=== PATIENT | male | born 1940 | race Caucasian/White ===

== ENCOUNTER 2017-08-09 11:07 | Emergency (ER) | payer BC, OTHER ==
[~2017-08-09] VITALS: Ht 165.1 cm; Wt 97.5 kg
[~2017-08-09 11:07] MED LIST: BENA20TA2 PO; DIFL500T PO; DOXA4TAB3 PO; FURO20TA3 PO; GLIP-112 PO; METF-620 PO; OMEP20TA8 PO; PIOG45TA3 PO
[2017-08-09] MEDS ORDERED: ONDANSETRON PF 4 MG/2 ML VIAL. IV ONE (12:30)
[2017-08-09] MEDS ORDERED: fentaNYL PF VIAL 100 MCG/2 ML VIAL IV PRN (12:30)
[2017-08-09 12:46] LABS: BASO % 1 % (0-3); EOS % 3 % (0-3); HEMATOCRIT 33.8 % (39.0-53.0); HEMOGLOBIN 10.9 g/dL (13.0-17.5); LYMPH # 1.4 x10^3/uL (1.0-4.8); LYMPH % 19 % (24-48); MEAN CORPUSCULAR HEMOGLOBIN 29 pg (25-35); MEAN CORPUSCULAR HGB CONC 32 g/dL (31-37); MEAN CORPUSCULAR VOLUME 90 fL (79-100); MONO % 9 % (0-9); NEUT % 69 % (31-73); PLATELET COUNT 189 x10^3/uL (140-400); RED BLOOD COUNT 3.75 x10^6/uL (4.30-5.70); RED CELL DISTRIBUTION WIDTH 14.5 % (11.5-14.5); WHITE BLOOD COUNT 7.6 x10^3/uL (4.0-11.0)
[2017-08-09 12:56] LABS: CALCIUM 8.5 mg/dL (8.5-10.1); CREATININE 1.7 mg/dL (0.7-1.3); GFR 39.5; POTASSIUM 5.6 mmol/L (3.5-5.1)
[2017-08-09 12:57] LABS: INR 1.1 (0.8-1.1); PROTHROMBIN TIME PATIENT 13.5 SEC (11.7-14.0)
--- NOTE | 2017-08-09 12:57 | PHYS DOC ---
Past Medical History Past Medical History: Anemia, Asthma, Bronchitis, CAD, Cancer, Diabetes-Type II , Hypertension, Renal Disease, Other Additional Past Medical Histor: PROSTATE CA, Past Surgical History: Other Additional Past Surgical Histo: CATARACT SX, L THUMB Alcohol Use: None Drug Use: None Adult General Chief Complaint Chief Complaint: Shoulder pain HPI HPI Patient is a 77 year old male who presents with complaint of right sided shoulder pain. Patient states that he has had symptoms present for the past 2 weeks. Patient states that the pain originates in his right shoulder blade and radiates through his shoulder down into his hand. Patient states that his ring and small finger affected but he is not having symptoms in his thumb, index, or middle finger. Patient states that the pain has been constant. The patient has been seen by his primary doctor gave him a steroid shot and pain medication which did not help his symptoms. Patient also was seen at urgent care and started on a muscle relaxant. Patient states that despite treatment his symptoms have not improved. Patient rates his pain as 5 out of 10. Patient denies any associated substernal chest pain, shortness of breath, or headache currently. Review of Systems Review of Systems Constitutional: Denies fever or chills [] Eyes: Denies change in visual acuity, redness, or eye pain [] HENT: Denies nasal congestion or sore throat [] Respiratory: Denies cough or shortness of breath [] Cardiovascular: Denies substernal chest pain [] GI: Denies abdominal pain, nausea, vomiting, bloody stools or diarrhea [] : Denies dysuria or hematuria [] Musculoskeletal: Right shoulder and upper extremity pain[] Integument: Denies rash or skin lesions [] Neurologic: Denies headache, focal weakness or sensory changes [] Current Medications Current Medications Current Medications Medications (Trade) Dose Ordered Sig/Alicia Start Time Stop Time Status Last Admin Dose Admin Fentanyl Citrate (Fentanyl 2ml Vial) 50 mcg PRN Q15MIN PRN 08/09/17 12:30 08/10/17 12:29 08/09/17 12:36 50 MCG Ondansetron HCl (Zofran) 4 mg 1X ONCE 08/09/17 12:30 08/09/17 12:31 DC 08/09/17 12:36 4 MG Allergies Allergies Allergies Coded Allergies Type Severity Reaction Last Updated Verified No Known Drug Allergies 10/03/15 No Physical Exam Physical Exam Constitutional: Alert, obese, afebrile, appears in moderate discomfort. [] HENT: Normocephalic, atraumatic, bilateral external ears normal, oropharynx moist, no oral exudates, nose normal. [] Eyes: PERRLA, EOMI, conjunctiva normal, no discharge. [] Neck: Normal range of motion, no tenderness, supple, no stridor. [] Cardiovascular:Heart rate regular rhythm, no murmur [] Lungs & Thorax: Bilateral breath sounds clear to auscultation [] Abdomen: Bowel sounds normal, soft, no tenderness, no masses, no pulsatile masses. [] Skin: Warm, dry, no erythema, no rash. [] Back: No tenderness, no CVA tenderness. [] Extremities: No tenderness to palpation of right shoulder blade, no cyanosis, no clubbing, ROM intact, no edema. [] Neurologic: Alert and oriented X 3, normal motor function, normal sensory function, no focal deficits noted. [] Current Patient Data Vital Signs Vital Signs Date Time Temp Pulse Resp B/P (MAP) Pulse Ox O2 Delivery O2 Flow Rate FiO2 08/09/17 13:35 74 16 198/89 (125) 94 Room Air 08/09/17 11:17 98.3 98.3 Lab Values Laboratory Tests Test 08/09/17 12:30 08/09/17 13:35 White Blood Count 7.6 x10^3/uL (4.0-11.0) Red Blood Count 3.75 x10^6/uL (4.30-5.70) L Hemoglobin 10.9 g/dL (13.0-17.5) L Hematocrit 33.8 % (39.0-53.0) L Mean Corpuscular Volume 90 fL (79-100) Mean Corpuscular Hemoglobin 29 pg (25-35) Mean Corpuscular Hemoglobin Concent 32 g/dL (31-37) Red Cell Distribution Width 14.5 % (11.5-14.5) Platelet Count 189 x10^3/uL (140-400) Neutrophils (%) (Auto) 69 % (31-73) Lymphocytes (%) (Auto) 19 % (24-48) L Monocytes (%) (Auto) 9 % (0-9) Eosinophils (%) (Auto) 3 % (0-3) Basophils (%) (Auto) 1 % (0-3) Neutrophils # (Auto) 5.2 x10^3uL (1.8-7.7) Lymphocytes # (Auto) 1.4 x10^3/uL (1.0-4.8) Monocytes # (Auto) 0.7 x10^3/uL (0.0-1.1) Eosinophils # (Auto) 0.2 x10^3/uL (0.0-0.7) Basophils # (Auto) 0.0 x10^3/uL (0.0-0.2) Prothrombin Time 13.5 SEC (11.7-14.0) Prothrombin Time INR 1.1 (0.8-1.1) PTT 28 SEC (24-38) Sodium Level 142 mmol/L (136-145) Potassium Level 5.6 mmol/L (3.5-5.1) H Chloride Level 106 mmol/L (98-107) Carbon Dioxide Level 31 mmol/L (21-32) Anion Gap 5 (6-14) L Blood Urea Nitrogen 26 mg/dL (8-26) Creatinine 1.7 mg/dL (0.7-1.3) H Estimated GFR (Cockcroft-Gault) 39.5 BUN/Creatinine Ratio 15 (6-20) Glucose Level 232 mg/dL (70-99) H Calcium Level 8.5 mg/dL (8.5-10.1) Total Bilirubin 0.1 mg/dL (0.2-1.0) L Aspartate Amino Transferase (AST) 25 U/L (15-37) Alanine Aminotransferase (ALT) 30 U/L (16-63) Alkaline Phosphatase 84 U/L (46-116) Troponin I Quantitative < 0.017 ng/mL (0.000-0.055) Total Protein 6.7 g/dL (6.4-8.2) Albumin 3.5 g/dL (3.4-5.0) Albumin/Globulin Ratio 1.1 (1.0-1.7) Urine Collection Type Unknown Urine Color Yellow Urine Clarity Clear Urine pH 5.5 Urine Specific [place] 1.020 Urine Protein 100 mg/dL (NEG-TRACE) Urine Glucose (UA) 100 mg/dL (NEG) Urine Ketones (Stick) Negative mg/dL (NEG) Urine Blood Negative (NEG) Urine Nitrite Negative (NEG) Urine Bilirubin Negative (NEG) Urine Urobilinogen Dipstick 0.2 mg/dL (0.2 mg/dL) Urine Leukocyte Esterase Negative (NEG) Urine RBC Rare /HPF (0-2) Urine WBC Rare /HPF (0-4) Urine Bacteria Few /HPF (0-FEW) Laboratory Tests 08/09/17 12:30 Laboratory Tests 08/09/17 12:30 EKG EKG Interpreted by me: Heart rate 69, sinus rhythm, normal intervals, leftward axis , no acute ST/T-wave abnormalities present[] Radiology/Procedures Radiology/Procedures [place] [address] [place] [address] IMAGING REPORT Signed PATIENT: AUGUSTO CUNHA ACCOUNT: [id number] : 1940 LOCATION: ER AGE: 77 SEX: M EXAM STATUS: REG ER ORD. PHYSICIAN: ELISEO FRIEDMAN MD REASON: ulnar radicular pain in right upper extremity PROCEDURE: CERVICAL SPINE 2-3V Cervical spine, 3 views, 08/09/2017: History: Right ulnar radicular pain There is moderate disc space narrowing and marginal spurring at all of the disc spaces from C3-4 through C6-7. There are moderate degenerative changes involving scattered facet joints bilaterally. There is a slight associated spondylolisthesis at C2-3 due to facet joint arthropathy. No fracture is identified. The prevertebral soft tissues are unremarkable. IMPRESSION: 1. Moderately severe multilevel degenerative change throughout the cervical spine as described above. 2. No acute bony abnormality is detected. DICTATED and SIGNED BY: KADEN STARK MD DATE: 08/09/171313 CC: ELISEO FRIEDMAN MD; EMI ARNETT [address] [address] IMAGING REPORT Signed PATIENT: AUGUSTO CUNHA ACCOUNT: [id number] : 1940 LOCATION: ER AGE: 77 SEX: M EXAM STATUS: REG ER ORD. PHYSICIAN: ELISEO FRIEDMAN MD REASON: ulnar radicular pain in right upper extremity PROCEDURE: CHEST PA & LATERAL Chest, 2 views, 2016: History: Shoulder and back pain The heart size and pulmonary vascularity are normal. No pulmonary infiltrates are seen. There is no evidence of pleural fluid. Mild spurring is present in the spine. IMPRESSION: No acute cardiopulmonary abnormality is detected. DICTATED and SIGNED BY: KADEN STARK MD DATE: 08/09/17 1868 CC: ELISEO FRIEDMAN MD; EMI ARNETT ~ [] Course & Med Decision Making Course & Med Decision Making Pertinent Labs and Imaging studies reviewed. (See chart for details) Patient's workup shows evidence of severe degenerative disease of the cervical spine. The radiation patient's pain through the shoulder into the right fourth and fifth digits suggests a radiculopathy likely at the level of C7 and C8. Patient will be started on prednisone therapy for treatment of inflammation to improve patient's pain symptoms. Patient was found to have a potassium level of 5.6 with mild elevation in his creatinine levels. The patient's EKG and rhythm strip show no signs hyperacute T waves or other ectopy. I spoke with Dr. 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 He stated that it would be appropriate to give the patient 15 g of Kayexalate in the emergency department and to follow-up tomorrow for repeat lab work. Patient states that he was already scheduled to have repeat lab work tomorrow. Advised patient to return emergency department for any worsening symptoms. Patient voiced understanding and in agreement with treatment plan. Dragon Disclaimer Dragon Disclaimer This electronic medical record was generated, in whole or in part, using a voice recognition dictation system. Departure Departure Impression: Primary Impression: Cervical radiculopathy at C7 Additional Impressions: Hyperkalemia Renal insufficiency Disposition: 01 HOME, SELF-CARE Condition: IMPROVED Referrals: EMI ARNETT (PCP) Patient Instructions: Cervical Radiculopathy, Hyperkalemia Additional Instructions: Follow-up with Dr. Alexandre tomorrow for a repeat basic metabolic panel as your potassium levels were found to be elevated at 5.6 today. Be sure to drink plenty of fluids. You will be started on prednisone therapy for treatment of your right shoulder and arm pain as this is believed to be due to possible nerve compression and your neck. You will need follow-up to primary doctor in the next 7 days for reevaluation. Please return emergency department for any worsening symptoms. Scripts Prednisone (PREDNISONE) 20 Mg Tablet 1 TAB PO BID, #10 TAB Prov: ELISEO FRIEDMAN MD 08/09/17 Problem Qualifiers ELISEO FRIEDMAN MD Aug 09, 2017 12:57
[2017-08-09 13:03] LABS: ALBUMIN 3.5 g/dL (3.4-5.0); ALBUMIN/GLOBULIN RATIO 1.1 (1.0-1.7); TOTAL BILIRUBIN 0.1 mg/dL (0.2-1.0); TOTAL PROTEIN 6.7 g/dL (6.4-8.2)
--- NOTE | 2017-08-09 13:16 | RAD ---
Chest, 2 views, 2016: History: Shoulder and back pain The heart size and pulmonary vascularity are normal. No pulmonary infiltrates are seen. There is no evidence of pleural fluid. Mild spurring is present in the spine. IMPRESSION: No acute cardiopulmonary abnormality is detected.
--- NOTE | 2017-08-09 13:19 | RAD ---
Cervical spine, 3 views, 08/09/2017: History: Right ulnar radicular pain There is moderate disc space narrowing and marginal spurring at all of the disc spaces from C3-4 through C6-7. There are moderate degenerative changes involving scattered facet joints bilaterally. There is a slight associated spondylolisthesis at C2-3 due to facet joint arthropathy. No fracture is identified. The prevertebral soft tissues are unremarkable. IMPRESSION: 1. Moderately severe multilevel degenerative change throughout the cervical spine as described above. 2. No acute bony abnormality is detected.
[2017-08-09 13:49] LABS: BILIRUBIN,URINE NEGATIVE (NEG); GLUCOSE,URINE 100 mg/dL (NEG); NITRITE,URINE NEGATIVE (NEG); PH,URINE 5.5; PROTEIN,URINE 100 mg/dL (NEG-TRACE); UROBILINOGEN,URINE 0.2 mg/dL (0.2 mg/dL)
[2017-08-09 13:59] LABS: BACTERIA,URINE FEW /HPF (0-FEW); RBC,URINE RARE /HPF (0-2); WBC,URINE RARE /HPF (0-4)
[2017-08-09 14:04] VITALS: BP 200/89
[2017-08-09] MEDS ORDERED: PRED20TA PO (14:43)
[2017-08-09] MEDS ORDERED: SODIUM POLYSTYRENE SULFONATE 15 GM/60 ML ORAL.SUSP. PO ONE (14:45)
--- NOTE | 2017-08-10 07:07 | EKG ---
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
== END 2017-08-09 15:00 | disposition home or self-care (01) ==
LOC: ER 11:07
DX: M54.12 Radiculopathy, cervical region (principal); E87.5 Hyperkalemia; J45.909 Unspecified asthma, uncomplicated; I25.10 Atherosclerotic heart disease of native coronary artery without angina pectoris; E11.22 Type 2 diabetes mellitus with diabetic chronic kidney disease; I12.9 Hypertensive chronic kidney disease with stage 1 through stage 4 chronic kidney disease, or unspecified chronic kidney disease; N18.9 Chronic kidney disease, unspecified; E11.36 Type 2 diabetes mellitus with diabetic cataract; Z98.49 Cataract extraction status, unspecified eye
CPT/HCPCS: 36415; 71020; 72040; 80053; 81001; 84484; 85025; 85610; 85730; 93005; 96374; 96375; 99285; J2405; J3010

== ENCOUNTER 2017-11-04 17:05 | Inpatient (IN) | payer OTHER ==
[~2017-11-04] VITALS: Ht 165.1 cm; Wt 113.9 kg
[~2017-11-04 17:05] MED LIST changes: +PRED20TA PO
--- NOTE | 2017-11-04 17:29 | EKG ---
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
[2017-11-04] MEDS ORDERED: methylPREDNISolone SOD SUCC PF 125 MG/2 ML VIAL. IV ONE (17:30)
[2017-11-04] MEDS ORDERED: IV NORMAL SALINE 1000ML BAG 1,000 ML IV ONE (17:30)
[2017-11-04] MEDS ORDERED: IPRATRPIUM/ALBUTEROL 0.5/2.5MG 3 ML NEBU. NEB ONE (17:30)
[2017-11-04 17:43] LABS: BASO % 1 % (0-3); EOS % 0 % (0-3); HEMATOCRIT 33.5 % (39.0-53.0); HEMOGLOBIN 10.7 g/dL (13.0-17.5); LYMPH # 0.5 x10^3/uL (1.0-4.8); LYMPH % 7 % (24-48); MEAN CORPUSCULAR HEMOGLOBIN 29 pg (25-35); MEAN CORPUSCULAR HGB CONC 32 g/dL (31-37); MEAN CORPUSCULAR VOLUME 90 fL (79-100); MONO % 10 % (0-9); NEUT % 83 % (31-73); PLATELET COUNT 173 x10^3/uL (140-400); RED BLOOD COUNT 3.72 x10^6/uL (4.30-5.70); RED CELL DISTRIBUTION WIDTH 14.7 % (11.5-14.5); WHITE BLOOD COUNT 7.8 x10^3/uL (4.0-11.0)
[2017-11-04 17:55] LABS: INR 1.1 (0.8-1.1); PROTHROMBIN TIME PATIENT 13.8 SEC (11.7-14.0)
[2017-11-04 18:01] LABS: CALCIUM 8.4 mg/dL (8.5-10.1); CREATININE 1.7 mg/dL (0.7-1.3); GFR 39.5; POTASSIUM 4.7 mmol/L (3.5-5.1)
[2017-11-04 18:07] LABS: ALBUMIN 3.3 g/dL (3.4-5.0); ALBUMIN/GLOBULIN RATIO 0.8 (1.0-1.7); MAGNESIUM 1.3 mg/dL (1.8-2.4); TOTAL BILIRUBIN 0.3 mg/dL (0.2-1.0); TOTAL PROTEIN 7.4 g/dL (6.4-8.2)
[2017-11-04] MEDS ORDERED: OSELTAMIVIR 75 MG CAPSULE PO STA (18:11)
[2017-11-04 18:12] LABS: OBC FLU VALID
--- NOTE | 2017-11-04 18:31 | RAD ---
EXAM: CT head without contrast HISTORY: falls x two today no LOC weakness COMPARISON: None. TECHNIQUE: Computed tomographic images of the head were obtained without contrast. RS compliance statement: One or more of the following individualized dose reduction techniques were utilized for this examination: 1. Automated exposure control 2. Adjustment of the mA and/or kV according to patient size 3. Use of iterative reconstruction technique FINDINGS: There is no acute intracranial process identified. Specifically, there are no intracranial blood products, extra-axial fluid collections, mass effect or midline shift. Ventricles and sulci appear age-appropriate. Basilar cisterns are maintained. The visualized portions of the orbits, paranasal sinuses and mastoid air cells are unremarkable. No suspicious calvarial lesion is seen. IMPRESSION: No acute intracranial findings. Electronically signed by: Lucy Lau MD (11/04/2017 6:28 PM) [facility]
[2017-11-04] MEDS ORDERED: MAGNESIUM OXIDE 400 MG TABLET PO STA (18:32)
--- NOTE | 2017-11-04 18:39 | PHYS DOC ---
Past Medical History Past Medical History: Anemia, Asthma, Bronchitis, CAD, Cancer, Diabetes-Type II , Hypertension, Renal Disease, Other Additional Past Medical Histor: PROSTATE CA, Past Surgical History: Other Additional Past Surgical Histo: CATARACT SX, L THUMB Alcohol Use: None Drug Use: None Adult General Chief Complaint Chief Complaint: WEAKNESS/GENERALIZED HPI HPI Patient is a 77 year old male presenting to the emergency department for evaluation of multiple symptoms including cough congestion fevers and per the he has been more confused short of breath and fallen at least twice today. Patient seems to minimize most of the symptoms however says that he fell straight forward and might of passed out and patient could not get up on its own and she cannot lift him up as he is quite a large man and EMS had to be called. Patient essentially denies all symptoms however he is obviously short of breath as he is wheezing and hypoxic and breathing rapidly. Patient received an influenza vaccine this year and these symptoms started 2 days ago and primary care provider started him on amoxicillin. Review of Systems Review of Systems Constitutional: Denies fever or chills [] Eyes: Denies change in visual acuity, redness, or eye pain [] HENT: Denies nasal congestion or sore throat [] Respiratory: Denies cough or shortness of breath [] Cardiovascular: No additional information not addressed in HPI [] GI: Denies abdominal pain, nausea, vomiting, bloody stools or diarrhea [] : Denies dysuria or hematuria [] Musculoskeletal: Denies back pain or joint pain [] Integument: Denies rash or skin lesions [] Neurologic: Denies headache, focal weakness or sensory changes [] All other systems were reviewed and found to be within normal limits, except as documented in this note. Current Medications Current Medications Current Medications Medications (Trade) Dose Ordered Sig/Alicia Start Time Stop Time Status Last Admin Dose Admin Albuterol/ Ipratropium (Duoneb) 3 ml 1X ONCE 11/04/17 17:30 11/04/17 17:31 DC 11/04/17 17:34 3 ML Methylprednisolone Sodium Succinate (SOLU-Medrol 125MG VIAL) 125 mg 1X ONCE 11/04/17 17:30 11/04/17 17:31 DC 11/04/17 17:42 125 MG Oseltamivir Phosphate (Tamiflu) 75 mg 1X STAT 11/04/17 18:11 11/04/17 18:18 DC 12/6/17 18:24 75 MG Sodium Chloride 1,000 ml @ 1,000 mls/hr 1X ONCE 11/04/17 17:30 11/04/17 18:29 DC 11/04/17 17:42 1,000 MLS/HR Allergies Allergies Allergies Coded Allergies Type Severity Reaction Last Updated Verified No Known Drug Allergies 10/03/15 No Physical Exam Physical Exam Constitutional: Large male moderately short of breath but nontoxic-appearing HENT: Normocephalic, atraumatic, bilateral external ears normal, oropharynx moist, no oral exudates, nose normal. [] Eyes: PERRLA, EOMI, conjunctiva normal, no discharge. [] Neck: Normal range of motion, no tenderness, supple, no stridor. [] Cardiovascular:Heart rate regular rhythm but tachycardic, no murmur [] Lungs & Thorax: Bilateral breath sounds diminished with inspiratory and expiratory wheezing Abdomen: Bowel sounds normal, soft, no tenderness, no masses, no pulsatile masses. [] Skin: Warm, dry, no erythema, no rash. [] Back: No tenderness, no CVA tenderness. [] Extremities: No tenderness, no cyanosis, no clubbing, ROM intact, no edema. [] Neurologic: Alert and oriented X 3, normal motor function, normal sensory function, no focal deficits noted. [] Current Patient Data Vital Signs Vital Signs Date Time Temp Pulse Resp B/P (MAP) Pulse Ox O2 Delivery O2 Flow Rate FiO2 11/04/17 17:35 97 Nasal Cannula 2.0 11/04/17 17:33 90 22 11/04/17 17:10 100.6 183/76 (111) 100.6 Lab Values Laboratory Tests Test 11/04/17 17:20 11/04/17 17:30 Influenza Type A Antigen Positive (NEGATIVE) Influenza Type B Antigen Negative (NEGATIVE) White Blood Count 7.8 x10^3/uL (4.0-11.0) Red Blood Count 3.72 x10^6/uL (4.30-5.70) L Hemoglobin 10.7 g/dL (13.0-17.5) L Hematocrit 33.5 % (39.0-53.0) L Mean Corpuscular Volume 90 fL (79-100) Mean Corpuscular Hemoglobin 29 pg (25-35) Mean Corpuscular Hemoglobin Concent 32 g/dL (31-37) Red Cell Distribution Width 14.7 % (11.5-14.5) H Platelet Count 173 x10^3/uL (140-400) Neutrophils (%) (Auto) 83 % (31-73) H Lymphocytes (%) (Auto) 7 % (24-48) L Monocytes (%) (Auto) 10 % (0-9) H Eosinophils (%) (Auto) 0 % (0-3) Basophils (%) (Auto) 1 % (0-3) Neutrophils # (Auto) 6.4 x10^3uL (1.8-7.7) Lymphocytes # (Auto) 0.5 x10^3/uL (1.0-4.8) L Monocytes # (Auto) 0.8 x10^3/uL (0.0-1.1) Eosinophils # (Auto) 0.0 x10^3/uL (0.0-0.7) Basophils # (Auto) 0.0 x10^3/uL (0.0-0.2) Prothrombin Time 13.8 SEC (11.7-14.0) Prothrombin Time INR 1.1 (0.8-1.1) PTT 33 SEC (24-38) Sodium Level 139 mmol/L (136-145) Potassium Level 4.7 mmol/L (3.5-5.1) Chloride Level 102 mmol/L (98-107) Carbon Dioxide Level 26 mmol/L (21-32) Anion Gap 11 (6-14) Blood Urea Nitrogen 19 mg/dL (8-26) Creatinine 1.7 mg/dL (0.7-1.3) H Estimated GFR (Cockcroft-Gault) 39.5 BUN/Creatinine Ratio 11 (6-20) Glucose Level 234 mg/dL (70-99) H Lactic Acid Level 1.4 mmol/L (0.4-2.0) Calcium Level 8.4 mg/dL (8.5-10.1) L Magnesium Level 1.3 mg/dL (1.8-2.4) L Total Bilirubin 0.3 mg/dL (0.2-1.0) Aspartate Amino Transferase (AST) 26 U/L (15-37) Alanine Aminotransferase (ALT) 24 U/L (16-63) Alkaline Phosphatase 71 U/L (46-116) Creatine Kinase 462 U/L (39-308) H Troponin I Quantitative 0.023 ng/mL (0.000-0.055) XT-Bts-E-Type Natriuretic Peptide 1575 pg/mL (0-449) H Total Protein 7.4 g/dL (6.4-8.2) Albumin 3.3 g/dL (3.4-5.0) L Albumin/Globulin Ratio 0.8 (1.0-1.7) L Lipase 146 U/L (73-393) Laboratory Tests 11/04/17 17:30 Laboratory Tests 11/04/17 17:30 EKG EKG Sinus tachycardia at 104 beats per minutes with leftward axis with no obvious ST elevation or depression and normal T waves. Radiology/Procedures Radiology/Procedures Normal mediastinum and normal heart size no obvious free air pneumothorax or opacity Course & Med Decision Making Course & Med Decision Making Patient has influenza A and unfortunately is not doing well at home as he is unable to ambulate successfully and is short of breath and was initially hypoxic. Patient will be admitted to the hospital for IV fluids Tamiflu and hopefully improve overnight. Patient admitted in stable condition. Dragon Disclaimer Dragon Disclaimer This electronic medical record was generated, in whole or in part, using a voice recognition dictation system. Departure Departure Impression: Primary Impression: Influenza A Additional Impressions: Rhabdomyolysis Hypomagnesemia Elevated brain natriuretic peptide (BNP) level Disposition: ADMITTED INPATIENT Admitting Physician: Other (PETERLA) Condition: IMPROVED Referrals: EMI ARNETT (PCP) Problem Qualifiers ANGY GUERRERO DO Nov 04, 2017 18:39
[2017-11-04 18:42] LABS: BILIRUBIN,URINE NEGATIVE (NEG); GLUCOSE,URINE 100 mg/dL (NEG); NITRITE,URINE NEGATIVE (NEG); PH,URINE 5.5; PROTEIN,URINE >=300 mg/dL (NEG-TRACE); UROBILINOGEN,URINE 0.2 mg/dL (0.2 mg/dL)
[2017-11-04] MEDS ORDERED: ACETAMINOPHEN 500 MG TABLET PO ONE (18:45)
[2017-11-04] MEDS ORDERED: ONDANSETRON PF 4 MG/2 ML VIAL. IV PRN (18:45)
[2017-11-04] MEDS ORDERED: fentaNYL PF VIAL 100 MCG/2 ML VIAL IV PRN (18:45)
[2017-11-04 19:00] LABS: BACTERIA,URINE FEW /HPF (0-FEW); SQUAMOUS EPITHELIAL CELL,UR FEW /LPF; WBC,URINE RARE /HPF (0-4)
[2017-11-04 20:06] VITALS: BP 154/69
[2017-11-04] MEDS ORDERED: DEXTROSE 50% 25 GM / 50ML DISP.SYRIN. IV PRN (20:45)
[2017-11-04] MEDS ORDERED: ACETAMINOPHEN 325 MG TABLET. PO PRN (20:45)
--- NOTE | 2017-11-04 20:53 | PDOC1 ---
History and Physical Date of Admission Date of Admission 11/04/17 Identification/Chief Complaint Chief Complaint cough, fever, chills Problems: (1) Influenza A Source Source: Patient History of Present Illness History of Present Illness 77 year old CM came in complaining of cough, fever, and chills for the last few days. Patient stated he has been around sick people in the previous week. Patient then started to get more confused and fell down twice and his brought him in. Patient found to have Influenza A in the ER and is currently feeling better. Patient denies any chest pain, nausea, and vomiting. Past Medical History Cardiovascular: HTN Renal/: Chronic renal insuff Endocrine: Diabetes Family History Family History: No Significant, Diabetes Social History Smoke: No ALCOHOL: none Current Problem List Problem List Problems Medical Problems: (1) Elevated brain natriuretic peptide (BNP) level Status: Acute (2) Hypomagnesemia Status: Acute (3) Influenza A Status: Acute (4) Rhabdomyolysis Status: Acute Current Medications Current Medications Current Medications Medications (Trade) Dose Ordered Sig/Alicia Start Time Stop Time Status Last Admin Dose Admin Acetaminophen (Tylenol) 650 mg PRN Q6HRS PRN 11/04/17 20:45 Albuterol/ Ipratropium (Duoneb) 3 ml RTQID 11/05/17 08:00 UNV Dextrose (Dextrose 50%-Water Syringe) 12.5 gm PRN Q15MIN PRN 11/04/17 20:45 UNV Fentanyl Citrate (Fentanyl 2ml Vial) 50 mcg PRN Q2HR PRN 11/04/17 18:45 11/05/17 18:44 Heparin Sodium (Porcine) (Heparin Sq) 5,000 unit Q8HRS 11/04/17 22:00 Insulin Aspart (NovoLOG) 0-5 UNITS TIDWMEALS 11/05/17 08:00 UNV Magnesium Oxide (Magnesium Oxide) 800 mg 1X STAT 11/04/17 18:32 11/04/17 18:35 DC 11/04/17 20:35 800 MG Methylprednisolone Sodium Succinate (SOLU-Medrol 40MG VIAL) 40 mg Q24H 11/04/17 20:45 UNV Methylprednisolone Sodium Succinate (SOLU-Medrol 125MG VIAL) 125 mg 1X ONCE 11/04/17 17:30 11/04/17 17:31 DC 11/04/17 17:42 125 MG Ondansetron HCl (Zofran) 4 mg PRN Q8HRS PRN 11/04/17 18:45 11/05/17 18:44 Oseltamivir Phosphate (Tamiflu) 75 mg BID 11/04/17 21:00 11/09/17 20:59 UNV Sodium Chloride 1,000 ml @ 1,000 mls/hr 1X ONCE 11/04/17 17:30 11/04/17 18:29 DC 11/04/17 17:42 1,000 MLS/HR Allergies Allergies Allergies Coded Allergies Type Severity Reaction Last Updated Verified No Known Drug Allergies 10/03/15 No ROS Review of System CONSTITUTIONAL: +fever, chills EYES: No recent changes SKIN: No rash or itching CARDIOVASCULAR: No chest pain, syncope, palpitations, or edema RESPIRATORY: +SOB, +cough GASTROINTESTINAL: No nausea, vomiting or abdominal pain NEUROLOGICAL: No headaches or weakness ENDOCRINE: No cold or heat intolerance GENITOURINARY: No urgency or frequency of urination MUSCULOSKELETAL: No back pain or joint pain LYMPHATICS: No enlarged lymph nodes PSYCHIATRIC: No anxiety or depression Physical Exam Physical Exam GEN.: mild distress, alert HEENT: Head is normocephalic, atraumatic NECK: Supple. LUNGS: bilateral expiratory wheezing HEART: RRR, S1, S2 present. Peripheral pulses intact ABDOMEN: Soft, nontender. Positive bowel sounds. EXTREMITIES: Without any cyanosis. NEUROLOGIC: Normal speech, normal tone PSYCHIATRIC: Normal affect, normal mood. SKIN: No ulcerations Vitals Vitals Vital Signs Date Time Temp Pulse Resp B/P (MAP) Pulse Ox O2 Delivery O2 Flow Rate FiO2 11/04/17 20:06 95 20 154/69 (97) 96 Nasal Cannula 2.0 11/04/17 18:26 100.4 100.4 Labs Labs Laboratory Tests Test 11/04/17 17:20 11/04/17 17:30 11/04/17 18:33 11/04/17 20:35 Influenza Type A Antigen Positive (NEGATIVE) Influenza Type B Antigen Negative (NEGATIVE) White Blood Count 7.8 x10^3/uL (4.0-11.0) Red Blood Count 3.72 x10^6/uL (4.30-5.70) Hemoglobin 10.7 g/dL (13.0-17.5) Hematocrit 33.5 % (39.0-53.0) Mean Corpuscular Volume 90 fL (79-100) Mean Corpuscular Hemoglobin 29 pg (25-35) Mean Corpuscular Hemoglobin Concent 32 g/dL (31-37) Red Cell Distribution Width 14.7 % (11.5-14.5) Platelet Count 173 x10^3/uL (140-400) Neutrophils (%) (Auto) 83 % (31-73) Lymphocytes (%) (Auto) 7 % (24-48) Monocytes (%) (Auto) 10 % (0-9) Eosinophils (%) (Auto) 0 % (0-3) Basophils (%) (Auto) 1 % (0-3) Neutrophils # (Auto) 6.4 x10^3uL (1.8-7.7) Lymphocytes # (Auto) 0.5 x10^3/uL (1.0-4.8) Monocytes # (Auto) 0.8 x10^3/uL (0.0-1.1) Eosinophils # (Auto) 0.0 x10^3/uL (0.0-0.7) Basophils # (Auto) 0.0 x10^3/uL (0.0-0.2) Prothrombin Time 13.8 SEC (11.7-14.0) Prothromb Time International Ratio 1.1 (0.8-1.1) Activated Partial Thromboplast Time 33 SEC (24-38) Sodium Level 139 mmol/L (136-145) Potassium Level 4.7 mmol/L (3.5-5.1) Chloride Level 102 mmol/L (98-107) Carbon Dioxide Level 26 mmol/L (21-32) Anion Gap 11 (6-14) Blood Urea Nitrogen 19 mg/dL (8-26) Creatinine 1.7 mg/dL (0.7-1.3) Estimated GFR (Cockcroft-Gault) 39.5 BUN/Creatinine Ratio 11 (6-20) Glucose Level 234 mg/dL (70-99) Lactic Acid Level 1.4 mmol/L (0.4-2.0) Calcium Level 8.4 mg/dL (8.5-10.1) Magnesium Level 1.3 mg/dL (1.8-2.4) Total Bilirubin 0.3 mg/dL (0.2-1.0) Aspartate Amino Transf (AST/SGOT) 26 U/L (15-37) Alanine Aminotransferase (ALT/SGPT) 24 U/L (16-63) Alkaline Phosphatase 71 U/L (46-116) Creatine Kinase 462 U/L (39-308) Troponin I Quantitative 0.023 ng/mL (0.000-0.055) IX-Sbm-I-Type Natriuretic Peptide 1575 pg/mL (0-449) Total Protein 7.4 g/dL (6.4-8.2) Albumin 3.3 g/dL (3.4-5.0) Albumin/Globulin Ratio 0.8 (1.0-1.7) Lipase 146 U/L (73-393) Urine Collection Type Unknown Urine Color Yellow Urine Clarity Clear Urine pH 5.5 Urine Specific Powell 1.020 Urine Protein >=300 mg/dL (NEG-TRACE) Urine Glucose (UA) 100 mg/dL (NEG) Urine Ketones (Stick) Negative mg/dL (NEG) Urine Blood Moderate (NEG) Urine Nitrite Negative (NEG) Urine Bilirubin Negative (NEG) Urine Urobilinogen Dipstick 0.2 mg/dL (0.2 mg/dL) Urine Leukocyte Esterase Negative (NEG) Urine RBC 1-2 /HPF (0-2) Urine WBC Rare /HPF (0-4) Urine Squamous Epithelial Cells Few /LPF Urine Bacteria Few /HPF (0-FEW) Urine Mucus Mod /LPF Glucose (Fingerstick) 285 mg/dL (70-99) Laboratory Tests Test 11/04/17 17:20 11/04/17 17:30 11/04/17 18:33 11/04/17 20:35 Influenza Type A Antigen Positive (NEGATIVE) Influenza Type B Antigen Negative (NEGATIVE) White Blood Count 7.8 x10^3/uL (4.0-11.0) Red Blood Count 3.72 x10^6/uL (4.30-5.70) Hemoglobin 10.7 g/dL (13.0-17.5) Hematocrit 33.5 % (39.0-53.0) Mean Corpuscular Volume 90 fL (79-100) Mean Corpuscular Hemoglobin 29 pg (25-35) Mean Corpuscular Hemoglobin Concent 32 g/dL (31-37) Red Cell Distribution Width 14.7 % (11.5-14.5) Platelet Count 173 x10^3/uL (140-400) Neutrophils (%) (Auto) 83 % (31-73) Lymphocytes (%) (Auto) 7 % (24-48) Monocytes (%) (Auto) 10 % (0-9) Eosinophils (%) (Auto) 0 % (0-3) Basophils (%) (Auto) 1 % (0-3) Neutrophils # (Auto) 6.4 x10^3uL (1.8-7.7) Lymphocytes # (Auto) 0.5 x10^3/uL (1.0-4.8) Monocytes # (Auto) 0.8 x10^3/uL (0.0-1.1) Eosinophils # (Auto) 0.0 x10^3/uL (0.0-0.7) Basophils # (Auto) 0.0 x10^3/uL (0.0-0.2) Prothrombin Time 13.8 SEC (11.7-14.0) Prothromb Time International Ratio 1.1 (0.8-1.1) Activated Partial Thromboplast Time 33 SEC (24-38) Sodium Level 139 mmol/L (136-145) Potassium Level 4.7 mmol/L (3.5-5.1) Chloride Level 102 mmol/L (98-107) Carbon Dioxide Level 26 mmol/L (21-32) Anion Gap 11 (6-14) Blood Urea Nitrogen 19 mg/dL (8-26) Creatinine 1.7 mg/dL (0.7-1.3) Estimated GFR (Cockcroft-Gault) 39.5 BUN/Creatinine Ratio 11 (6-20) Glucose Level 234 mg/dL (70-99) Lactic Acid Level 1.4 mmol/L (0.4-2.0) Calcium Level 8.4 mg/dL (8.5-10.1) Magnesium Level 1.3 mg/dL (1.8-2.4) Total Bilirubin 0.3 mg/dL (0.2-1.0) Aspartate Amino Transf (AST/SGOT) 26 U/L (15-37) Alanine Aminotransferase (ALT/SGPT) 24 U/L (16-63) Alkaline Phosphatase 71 U/L (46-116) Creatine Kinase 462 U/L (39-308) Troponin I Quantitative 0.023 ng/mL (0.000-0.055) [id number]-Type Natriuretic Peptide 1575 pg/mL (0-449) Total Protein 7.4 g/dL (6.4-8.2) Albumin 3.3 g/dL (3.4-5.0) Albumin/Globulin Ratio 0.8 (1.0-1.7) Lipase 146 U/L (73-393) Urine Collection Type Unknown Urine Color Yellow Urine Clarity Clear Urine pH 5.5 Urine Specific Powell 1.020 Urine Protein >=300 mg/dL (NEG-TRACE) Urine Glucose (UA) 100 mg/dL (NEG) Urine Ketones (Stick) Negative mg/dL (NEG) Urine Blood Moderate (NEG) Urine Nitrite Negative (NEG) Urine Bilirubin Negative (NEG) Urine Urobilinogen Dipstick 0.2 mg/dL (0.2 mg/dL) Urine Leukocyte Esterase Negative (NEG) Urine RBC 1-2 /HPF (0-2) Urine WBC Rare /HPF (0-4) Urine Squamous Epithelial Cells Few /LPF Urine Bacteria Few /HPF (0-FEW) Urine Mucus Mod /LPF Glucose (Fingerstick) 285 mg/dL (70-99) VTE Prophylaxis Ordered VTE Prophylaxis Devices: No VTE Pharmacological Prophylaxi: Yes Assessment/Plan Assessment/Plan ~ Influenza A ~ Acute hypoxic respiratory failure ~ Rhabdomyolysis ~ Acute Renal Failure ~ DM II ~ Hypertension Plan: Tamiflu, IV steroids, nebulizers, accuchecks, SSI, Hold ACEI and oral diabetics because of renal failure Heparin SC for DVT ppx Patient to be here for at least 2 [place] JOSE RAFAEL MCCOY MD Nov 04, 2017 20:53
[2017-11-04] MEDS ORDERED: hydrALAZINE 20 MG/ML VIAL. IVP PRN (21:00)
[2017-11-04] MEDS: OSELTAMIVIR 30 MG CAPSULE PO SCH (21:05)
[2017-11-04] MEDS: HEPARIN PF for SUB-Q USE 5,000 UNIT/0.5 ML VIAL. SQ SCH (21:06)
[2017-11-04] MEDS: DOXAZOSIN MESYLATE 4 MG TABLET. PO SCH (21:06)
[2017-11-04] MEDS ORDERED: SIMV40TA3 PO (22:07)
[2017-11-04 23:00] VITALS: BP 165/66
[2017-11-05 03:00] VITALS: BP 167/77
[2017-11-05] MEDS: HEPARIN PF for SUB-Q USE 5,000 UNIT/0.5 ML VIAL. SQ SCH ×3 (05:22→21:37)
[2017-11-05 05:45] LABS: BASO % 0 % (0-3); EOS % 0 % (0-3); HEMATOCRIT 34.7 % (39.0-53.0); HEMOGLOBIN 11.1 g/dL (13.0-17.5); LYMPH # 0.5 x10^3/uL (1.0-4.8); LYMPH % 6 % (24-48); MEAN CORPUSCULAR HEMOGLOBIN 29 pg (25-35); MEAN CORPUSCULAR HGB CONC 32 g/dL (31-37); MEAN CORPUSCULAR VOLUME 91 fL (79-100); MONO % 5 % (0-9); NEUT % 89 % (31-73); PLATELET COUNT 172 x10^3/uL (140-400); RED BLOOD COUNT 3.82 x10^6/uL (4.30-5.70); RED CELL DISTRIBUTION WIDTH 15.2 % (11.5-14.5); WHITE BLOOD COUNT 8.2 x10^3/uL (4.0-11.0)
[2017-11-05 06:18] LABS: CALCIUM 8.5 mg/dL (8.5-10.1); CREATININE 1.7 mg/dL (0.7-1.3); GFR 39.5
[2017-11-05 07:00] VITALS: BP 136/71
[2017-11-05 07:23] LABS: PLT ESTIMATE ADEQUATE (ADEQUATE); TARGET CELLS OCC
[2017-11-05] MEDS: PANTOPRAZOLE 40 MG TABLET.DR. PO SCH (07:49)
[2017-11-05] MEDS: IPRATRPIUM/ALBUTEROL 0.5/2.5MG 3 ML NEBU. NEB SCH ×4 (07:58→19:28)
[2017-11-05] MEDS: INSULIN ASPART 300 UNITS/3 ML INSULN.PEN SQ SCH ×3 (08:02→16:43)
--- NOTE | 2017-11-05 08:26 | RAD ---
Portable chest, 11/04/2017: History: Shortness of breath Cough, fever The heart size and pulmonary vascularity are normal. There is calcific plaquing of the aorta. No pulmonary infiltrates are seen. There is no evidence of pleural fluid. IMPRESSION: No acute cardiopulmonary abnormality is detected.
[2017-11-05] MEDS ORDERED: SITA100T PO (08:34)
[2017-11-05] MEDS: OSELTAMIVIR 30 MG CAPSULE PO SCH ×2 (08:48→21:00)
[2017-11-05] MEDS: methylPREDNISolone SOD SUCC PF 40 MG/ML VIAL. IV SCH (08:48)
[2017-11-05 11:03] VITALS: BP 142/57
[2017-11-05] MEDS ORDERED: DOXAZOSIN MESYLATE 4 MG TABLET. PO SCH (11:30)
[2017-11-05] MEDS: SIMVASTATIN 40 MG TABLET. PO SCH (11:58)
[2017-11-05] MEDS: PIOGLITAZONE 15 MG TABLET. PO SCH (11:58)
[2017-11-05] MEDS: LISINOPRIL 20 MG TABLET PO SCH (11:59)
[2017-11-05] MEDS: LINAGLIPTIN 5 MG TABLET PO SCH (12:01)
--- NOTE | 2017-11-05 13:12 | PDOC ---
PROGRESS NOTES Chief Complaint Chief Complaint Cough, Fever, Chills Influenza A HTN DM 2 Rhabdomyolysis Acute renal failure History of Present Illness History of Present Illness Pt. seen and examined today, droplet precautions in place Pt. 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 b/l General: Alert, Oriented X3, Cooperative Heart: Regular rate, Normal S1, Normal S2 Lungs: Clear Abdomen: Normal bowel sounds, Soft Extremities: No clubbing, No cyanosis Skin: No rashes, No breakdown Labs LABS Laboratory Tests Test 11/04/17 17:20 11/04/17 17:30 11/04/17 18:33 11/04/17 20:35 Influenza Type A Antigen Positive (NEGATIVE) Influenza Type B Antigen Negative (NEGATIVE) White Blood Count 7.8 x10^3/uL (4.0-11.0) Red Blood Count 3.72 x10^6/uL (4.30-5.70) Hemoglobin 10.7 g/dL (13.0-17.5) Hematocrit 33.5 % (39.0-53.0) Mean Corpuscular Volume 90 fL (79-100) Mean Corpuscular Hemoglobin 29 pg (25-35) Mean Corpuscular Hemoglobin Concent 32 g/dL (31-37) Red Cell Distribution Width 14.7 % (11.5-14.5) Platelet Count 173 x10^3/uL (140-400) Neutrophils (%) (Auto) 83 % (31-73) Lymphocytes (%) (Auto) 7 % (24-48) Monocytes (%) (Auto) 10 % (0-9) Eosinophils (%) (Auto) 0 % (0-3) Basophils (%) (Auto) 1 % (0-3) Neutrophils # (Auto) 6.4 x10^3uL (1.8-7.7) Lymphocytes # (Auto) 0.5 x10^3/uL (1.0-4.8) Monocytes # (Auto) 0.8 x10^3/uL (0.0-1.1) Eosinophils # (Auto) 0.0 x10^3/uL (0.0-0.7) Basophils # (Auto) 0.0 x10^3/uL (0.0-0.2) Prothrombin Time 13.8 SEC (11.7-14.0) Prothromb Time International Ratio 1.1 (0.8-1.1) Activated Partial Thromboplast Time 33 SEC (24-38) Sodium Level 139 mmol/L (136-145) Potassium Level 4.7 mmol/L (3.5-5.1) Chloride Level 102 mmol/L (98-107) Carbon Dioxide Level 26 mmol/L (21-32) Anion Gap 11 (6-14) Blood Urea Nitrogen 19 mg/dL (8-26) Creatinine 1.7 mg/dL (0.7-1.3) Estimated GFR (Cockcroft-Gault) 39.5 BUN/Creatinine Ratio 11 (6-20) Glucose Level 234 mg/dL (70-99) Lactic Acid Level 1.4 mmol/L (0.4-2.0) Calcium Level 8.4 mg/dL (8.5-10.1) Magnesium Level 1.3 mg/dL (1.8-2.4) Total Bilirubin 0.3 mg/dL (0.2-1.0) Aspartate Amino Transf (AST/SGOT) 26 U/L (15-37) Alanine Aminotransferase (ALT/SGPT) 24 U/L (16-63) Alkaline Phosphatase 71 U/L (46-116) Creatine Kinase 462 U/L (39-308) Troponin I Quantitative 0.023 ng/mL (0.000-0.055) XF-Wdi-M-Type Natriuretic Peptide 1575 pg/mL (0-449) Total Protein 7.4 g/dL (6.4-8.2) Albumin 3.3 g/dL (3.4-5.0) Albumin/Globulin Ratio 0.8 (1.0-1.7) Lipase 146 U/L (73-393) Urine Collection Type Unknown Urine Color Yellow Urine Clarity Clear Urine pH 5.5 Urine Specific Mcloud 1.020 Urine Protein >=300 mg/dL (NEG-TRACE) Urine Glucose (UA) 100 mg/dL (NEG) Urine Ketones (Stick) Negative mg/dL (NEG) Urine Blood Moderate (NEG) Urine Nitrite Negative (NEG) Urine Bilirubin Negative (NEG) Urine Urobilinogen Dipstick 0.2 mg/dL (0.2 mg/dL) Urine Leukocyte Esterase Negative (NEG) Urine RBC 1-2 /HPF (0-2) Urine WBC Rare /HPF (0-4) Urine Squamous Epithelial Cells Few /LPF Urine Bacteria Few /HPF (0-FEW) Urine Mucus Mod /LPF Glucose (Fingerstick) 285 mg/dL (70-99) Test 11/05/17 03:50 11/05/17 07:21 11/05/17 10:56 White Blood Count 8.2 x10^3/uL (4.0-11.0) Red Blood Count 3.82 x10^6/uL (4.30-5.70) Hemoglobin 11.1 g/dL (13.0-17.5) Hematocrit 34.7 % (39.0-53.0) Mean Corpuscular Volume 91 fL (79-100) Mean Corpuscular Hemoglobin 29 pg (25-35) Mean Corpuscular Hemoglobin Concent 32 g/dL (31-37) Red Cell Distribution Width 15.2 % (11.5-14.5) Platelet Count 172 x10^3/uL (140-400) Neutrophils (%) (Auto) 89 % (31-73) Lymphocytes (%) (Auto) 6 % (24-48) Monocytes (%) (Auto) 5 % (0-9) Eosinophils (%) (Auto) 0 % (0-3) Basophils (%) (Auto) 0 % (0-3) Neutrophils # (Auto) 7.3 x10^3uL (1.8-7.7) Lymphocytes # (Auto) 0.5 x10^3/uL (1.0-4.8) Monocytes # (Auto) 0.4 x10^3/uL (0.0-1.1) Eosinophils # (Auto) 0.0 x10^3/uL (0.0-0.7) Basophils # (Auto) 0.0 x10^3/uL (0.0-0.2) Segmented Neutrophils % 86 % (35-66) Lymphocytes % 7 % (24-48) Monocytes % 7 % (0-10) Platelet Estimate Adequate (ADEQUATE) Large Platelets Few Target Cells Occ Sodium Level 139 mmol/L (136-145) Potassium Level 5.0 mmol/L (3.5-5.1) Chloride Level 103 mmol/L (98-107) Carbon Dioxide Level 27 mmol/L (21-32) Anion Gap 9 (6-14) Blood Urea Nitrogen 22 mg/dL (8-26) Creatinine 1.7 mg/dL (0.7-1.3) Estimated GFR (Cockcroft-Gault) 39.5 Glucose Level 303 mg/dL (70-99) Calcium Level 8.5 mg/dL (8.5-10.1) Glucose (Fingerstick) 236 mg/dL (70-99) 270 mg/dL (70-99) Review of Systems Review of Systems GEN: Denies fever, chills or sweats CV: Denies chest pain Resp: Denies shortness of air GI: Denies N/V Assessment and Plan Assessmemt and Plan Problems Medical Problems: (1) Elevated brain natriuretic peptide (BNP) level Status: Acute (2) Hypomagnesemia Status: Acute (3) Influenza A Status: Acute (4) Rhabdomyolysis Status: Acute Assessment: Cough, Fever, Chills Influenza A HTN DM 2 Rhabdomyolysis Acute renal failure Plan: Continue Tamiflu Continue breathing treatments Continue home medications Recheck labs in am PT/OT consulted Problems: Comment Review of Relevant I have reviewed the following items elisa (where applicable) has been applied. Labs Laboratory Tests Test 11/04/17 17:20 11/04/17 17:30 11/04/17 18:33 11/04/17 20:35 Influenza Type A Antigen Positive (NEGATIVE) Influenza Type B Antigen Negative (NEGATIVE) White Blood Count 7.8 x10^3/uL (4.0-11.0) Red Blood Count 3.72 x10^6/uL (4.30-5.70) Hemoglobin 10.7 g/dL (13.0-17.5) Hematocrit 33.5 % (39.0-53.0) Mean Corpuscular Volume 90 fL (79-100) Mean Corpuscular Hemoglobin 29 pg (25-35) Mean Corpuscular Hemoglobin Concent 32 g/dL (31-37) Red Cell Distribution Width 14.7 % (11.5-14.5) Platelet Count 173 x10^3/uL (140-400) Neutrophils (%) (Auto) 83 % (31-73) Lymphocytes (%) (Auto) 7 % (24-48) Monocytes (%) (Auto) 10 % (0-9) Eosinophils (%) (Auto) 0 % (0-3) Basophils (%) (Auto) 1 % (0-3) Neutrophils # (Auto) 6.4 x10^3uL (1.8-7.7) Lymphocytes # (Auto) 0.5 x10^3/uL (1.0-4.8) Monocytes # (Auto) 0.8 x10^3/uL (0.0-1.1) Eosinophils # (Auto) 0.0 x10^3/uL (0.0-0.7) Basophils # (Auto) 0.0 x10^3/uL (0.0-0.2) Prothrombin Time 13.8 SEC (11.7-14.0) Prothromb Time International Ratio 1.1 (0.8-1.1) Activated Partial Thromboplast Time 33 SEC (24-38) Sodium Level 139 mmol/L (136-145) Potassium Level 4.7 mmol/L (3.5-5.1) Chloride Level 102 mmol/L (98-107) Carbon Dioxide Level 26 mmol/L (21-32) Anion Gap 11 (6-14) Blood Urea Nitrogen 19 mg/dL (8-26) Creatinine 1.7 mg/dL (0.7-1.3) Estimated GFR (Cockcroft-Gault) 39.5 BUN/Creatinine Ratio 11 (6-20) Glucose Level 234 mg/dL (70-99) Lactic Acid Level 1.4 mmol/L (0.4-2.0) Calcium Level 8.4 mg/dL (8.5-10.1) Magnesium Level 1.3 mg/dL (1.8-2.4) Total Bilirubin 0.3 mg/dL (0.2-1.0) Aspartate Amino Transf (AST/SGOT) 26 U/L (15-37) Alanine Aminotransferase (ALT/SGPT) 24 U/L (16-63) Alkaline Phosphatase 71 U/L (46-116) Creatine Kinase 462 U/L (39-308) Troponin I Quantitative 0.023 ng/mL (0.000-0.055) AR-Ghf-U-Type Natriuretic Peptide 1575 pg/mL (0-449) Total Protein 7.4 g/dL (6.4-8.2) Albumin 3.3 g/dL (3.4-5.0) Albumin/Globulin Ratio 0.8 (1.0-1.7) Lipase 146 U/L (73-393) Urine Collection Type Unknown Urine Color Yellow Urine Clarity Clear Urine pH 5.5 Urine Specific Mcloud 1.020 Urine Protein >=300 mg/dL (NEG-TRACE) Urine Glucose (UA) 100 mg/dL (NEG) Urine Ketones (Stick) Negative mg/dL (NEG) Urine Blood Moderate (NEG) Urine Nitrite Negative (NEG) Urine Bilirubin Negative (NEG) Urine Urobilinogen Dipstick 0.2 mg/dL (0.2 mg/dL) Urine Leukocyte Esterase Negative (NEG) Urine RBC 1-2 /HPF (0-2) Urine WBC Rare /HPF (0-4) Urine Squamous Epithelial Cells Few /LPF Urine Bacteria Few /HPF (0-FEW) Urine Mucus Mod /LPF Glucose (Fingerstick) 285 mg/dL (70-99) Test 11/05/17 03:50 11/05/17 07:21 11/05/17 10:56 White Blood Count 8.2 x10^3/uL (4.0-11.0) Red Blood Count 3.82 x10^6/uL (4.30-5.70) Hemoglobin 11.1 g/dL (13.0-17.5) Hematocrit 34.7 % (39.0-53.0) Mean Corpuscular Volume 91 fL (79-100) Mean Corpuscular Hemoglobin 29 pg (25-35) Mean Corpuscular Hemoglobin Concent 32 g/dL (31-37) Red Cell Distribution Width 15.2 % (11.5-14.5) Platelet Count 172 x10^3/uL (140-400) Neutrophils (%) (Auto) 89 % (31-73) Lymphocytes (%) (Auto) 6 % (24-48) Monocytes (%) (Auto) 5 % (0-9) Eosinophils (%) (Auto) 0 % (0-3) Basophils (%) (Auto) 0 % (0-3) Neutrophils # (Auto) 7.3 x10^3uL (1.8-7.7) Lymphocytes # (Auto) 0.5 x10^3/uL (1.0-4.8) Monocytes # (Auto) 0.4 x10^3/uL (0.0-1.1) Eosinophils # (Auto) 0.0 x10^3/uL (0.0-0.7) Basophils # (Auto) 0.0 x10^3/uL (0.0-0.2) Segmented Neutrophils % 86 % (35-66) Lymphocytes % 7 % (24-48) Monocytes % 7 % (0-10) Platelet Estimate Adequate (ADEQUATE) Large Platelets Few Target Cells Occ Sodium Level 139 mmol/L (136-145) Potassium Level 5.0 mmol/L (3.5-5.1) Chloride Level 103 mmol/L (98-107) Carbon Dioxide Level 27 mmol/L (21-32) Anion Gap 9 (6-14) Blood Urea Nitrogen 22 mg/dL (8-26) Creatinine 1.7 mg/dL (0.7-1.3) Estimated GFR (Cockcroft-Gault) 39.5 Glucose Level 303 mg/dL (70-99) Calcium Level 8.5 mg/dL (8.5-10.1) Glucose (Fingerstick) 236 mg/dL (70-99) 270 mg/dL (70-99) Laboratory Tests Test 11/04/17 17:20 11/04/17 17:30 11/04/17 18:33 11/04/17 20:35 Influenza Type A Antigen Positive (NEGATIVE) Influenza Type B Antigen Negative (NEGATIVE) White Blood Count 7.8 x10^3/uL (4.0-11.0) Red Blood Count 3.72 x10^6/uL (4.30-5.70) Hemoglobin 10.7 g/dL (13.0-17.5) Hematocrit 33.5 % (39.0-53.0) Mean Corpuscular Volume 90 fL (79-100) Mean Corpuscular Hemoglobin 29 pg (25-35) Mean Corpuscular Hemoglobin Concent 32 g/dL (31-37) Red Cell Distribution Width 14.7 % (11.5-14.5) Platelet Count 173 x10^3/uL (140-400) Neutrophils (%) (Auto) 83 % (31-73) Lymphocytes (%) (Auto) 7 % (24-48) Monocytes (%) (Auto) 10 % (0-9) Eosinophils (%) (Auto) 0 % (0-3) Basophils (%) (Auto) 1 % (0-3) Neutrophils # (Auto) 6.4 x10^3uL (1.8-7.7) Lymphocytes # (Auto) 0.5 x10^3/uL (1.0-4.8) Monocytes # (Auto) 0.8 x10^3/uL (0.0-1.1) Eosinophils # (Auto) 0.0 x10^3/uL (0.0-0.7) Basophils # (Auto) 0.0 x10^3/uL (0.0-0.2) Prothrombin Time 13.8 SEC (11.7-14.0) Prothromb Time International Ratio 1.1 (0.8-1.1) Activated Partial Thromboplast Time 33 SEC (24-38) Sodium Level 139 mmol/L (136-145) Potassium Level 4.7 mmol/L (3.5-5.1) Chloride Level 102 mmol/L (98-107) Carbon Dioxide Level 26 mmol/L (21-32) Anion Gap 11 (6-14) Blood Urea Nitrogen 19 mg/dL (8-26) Creatinine 1.7 mg/dL (0.7-1.3) Estimated GFR (Cockcroft-Gault) 39.5 BUN/Creatinine Ratio 11 (6-20) Glucose Level 234 mg/dL (70-99) Lactic Acid Level 1.4 mmol/L (0.4-2.0) Calcium Level 8.4 mg/dL (8.5-10.1) Magnesium Level 1.3 mg/dL (1.8-2.4) Total Bilirubin 0.3 mg/dL (0.2-1.0) Aspartate Amino Transf (AST/SGOT) 26 U/L (15-37) Alanine Aminotransferase (ALT/SGPT) 24 U/L (16-63) Alkaline Phosphatase 71 U/L (46-116) Creatine Kinase 462 U/L (39-308) Troponin I Quantitative 0.023 ng/mL (0.000-0.055) CH-Vke-T-Type Natriuretic Peptide 1575 pg/mL (0-449) Total Protein 7.4 g/dL (6.4-8.2) Albumin 3.3 g/dL (3.4-5.0) Albumin/Globulin Ratio 0.8 (1.0-1.7) Lipase 146 U/L (73-393) Urine Collection Type Unknown Urine Color Yellow Urine Clarity Clear Urine pH 5.5 Urine Specific Mcloud 1.020 Urine Protein >=300 mg/dL (NEG-TRACE) Urine Glucose (UA) 100 mg/dL (NEG) Urine Ketones (Stick) Negative mg/dL (NEG) Urine Blood Moderate (NEG) Urine Nitrite Negative (NEG) Urine Bilirubin Negative (NEG) Urine Urobilinogen Dipstick 0.2 mg/dL (0.2 mg/dL) Urine Leukocyte Esterase Negative (NEG) Urine RBC 1-2 /HPF (0-2) Urine WBC Rare /HPF (0-4) Urine Squamous Epithelial Cells Few /LPF Urine Bacteria Few /HPF (0-FEW) Urine Mucus Mod /LPF Glucose (Fingerstick) 285 mg/dL (70-99) Test 11/05/17 03:50 11/05/17 07:21 11/05/17 10:56 White Blood Count 8.2 x10^3/uL (4.0-11.0) Red Blood Count 3.82 x10^6/uL (4.30-5.70) Hemoglobin 11.1 g/dL (13.0-17.5) Hematocrit 34.7 % (39.0-53.0) Mean Corpuscular Volume 91 fL (79-100) Mean Corpuscular Hemoglobin 29 pg (25-35) Mean Corpuscular Hemoglobin Concent 32 g/dL (31-37) Red Cell Distribution Width 15.2 % (11.5-14.5) Platelet Count 172 x10^3/uL (140-400) Neutrophils (%) (Auto) 89 % (31-73) Lymphocytes (%) (Auto) 6 % (24-48) Monocytes (%) (Auto) 5 % (0-9) Eosinophils (%) (Auto) 0 % (0-3) Basophils (%) (Auto) 0 % (0-3) Neutrophils # (Auto) 7.3 x10^3uL (1.8-7.7) Lymphocytes # (Auto) 0.5 x10^3/uL (1.0-4.8) Monocytes # (Auto) 0.4 x10^3/uL (0.0-1.1) Eosinophils # (Auto) 0.0 x10^3/uL (0.0-0.7) Basophils # (Auto) 0.0 x10^3/uL (0.0-0.2) Segmented Neutrophils % 86 % (35-66) Lymphocytes % 7 % (24-48) Monocytes % 7 % (0-10) Platelet Estimate Adequate (ADEQUATE) Large Platelets Few Target Cells Occ Sodium Level 139 mmol/L (136-145) Potassium Level 5.0 mmol/L (3.5-5.1) Chloride Level 103 mmol/L (98-107) Carbon Dioxide Level 27 mmol/L (21-32) Anion Gap 9 (6-14) Blood Urea Nitrogen 22 mg/dL (8-26) Creatinine 1.7 mg/dL (0.7-1.3) Estimated GFR (Cockcroft-Gault) 39.5 Glucose Level 303 mg/dL (70-99) Calcium Level 8.5 mg/dL (8.5-10.1) Glucose (Fingerstick) 236 mg/dL (70-99) 270 mg/dL (70-99) Medications Current Medications Albuterol/ Ipratropium (Duoneb) 3 ml 1X ONCE NEB Last administered on 17:34; Start 11/04/17 at 17:30; Stop 11/04/17 at 17:31; Status DC Sodium Chloride 1,000 ml @ 1,000 mls/hr 1X ONCE IV Last administered on 17:42; Start 11/04/17 at 17:30; Stop 11/04/17 at 18:29; Status DC Methylprednisolone Sodium Succinate (SOLU-Medrol 125MG VIAL) 125 mg 1X ONCE IV Last administered on 11/04/17 17:42; Start 11/04/17 at 17:30; Stop 11/04/17 at 17:31; Status DC Oseltamivir Phosphate (Tamiflu) 75 mg 1X STAT PO Last administered on 18:24; Start 11/04/17 at 18:11; Stop 11/04/17 at 18:18; Status DC Magnesium Oxide (Magnesium Oxide) 800 mg 1X STAT PO Last administered on 20:35; Start 11/04/17 at 18:32; Stop 11/04/17 at 18:35; Status DC Acetaminophen (Tylenol) 1,000 mg 1X ONCE PO Last administered on 11/04/17 18: 40; Start 11/04/17 at 18:45; Stop 11/04/17 at 18:46; Status DC Ondansetron HCl (Zofran) 4 mg PRN Q8HRS PRN IV NAUSEA/VOMITING; Start 11/04/17 at 18:45; Stop 11/05/17 at 18:44 Fentanyl Citrate (Fentanyl 2ml Vial) 50 mcg PRN Q2HR PRN IV PAIN; Start at 18:45; Stop 11/05/17 at 18:44 Acetaminophen (Tylenol) 650 mg PRN Q6HRS PRN PO Headaches, Temp > 101.5F; Start 11/04/17 at 20:45 Heparin Sodium (Porcine) (Heparin Sq) 5,000 unit Q8HRS SQ ; Start 11/04/17 at 22 :00 Oseltamivir Phosphate (Tamiflu) 30 mg BID PO Last administered on 11/05/17 08: 48; Start 11/04/17 at 21:00; Stop 11/09/17 at 20:59 Albuterol/ Ipratropium (Duoneb) 3 ml RTQID NEB Last administered on 11/05/17 11:28; Start 11/05/17 at 08:00 Methylprednisolone Sodium Succinate (SOLU-Medrol 40MG VIAL) 40 mg Q24H IV Last administered on 11/05/17 08:48; Start 11/05/17 at 09:00 Insulin Aspart (NovoLOG) 0-5 UNITS TIDWMEALS SQ Last administered on 11/05/17 12:04; Start 11/05/17 at 08:00 Dextrose (Dextrose 50%-Water Syringe) 12.5 gm PRN Q15MIN PRN IV SEE COMMENTS; Start 11/04/17 at 20:45 Hydralazine HCl (Apresoline Inj) 10 mg PRN Q4HRS PRN IVP ELEVATED BP, SEE COMMENTS; Start 11/04/17 at 21:00 Pantoprazole Sodium (Protonix) 40 mg DAILYAC PO Last administered on 11/05/17 07:49; Start 11/05/17 at 07:30 Doxazosin Mesylate (Cardura) 4 mg QHS PO Last administered on 11/04/17 21:06; Start 11/04/17 at 21:00 Doxazosin Mesylate (Cardura) 4 mg DAILY PO ; Start 11/05/17 at 11:30; Status Cancel Metformin HCl (Glucophage) 1,000 mg BIDWMEALS PO ; Start 11/05/17 at 17:00 Simvastatin (Zocor) 40 mg DAILY PO Last administered on 11/05/17 11:58; Start 11/05/17 at 11:30 Lisinopril (Prinivil) 20 mg DAILY PO Last administered on 11/05/17 11:59; Start 11/05/17 at 11:30 Glipizide (Glucotrol) 10 mg BIDBFRMEAL PO ; Start 11/05/17 at 16:30 Pioglitazone HCl (Actos) 45 mg DAILY PO Last administered on 11/05/17 11:58; Start 11/05/17 at 12:00 Linagliptin (Tradjenta) 5 mg DAILY PO Last administered on 11/05/17 12:01; Start 11/05/17 at 12:00 Active Scripts Active Reported Januvia (Sitagliptin Phosphate) 100 Mg Tablet 1 Tab PO DAILY Simvastatin 40 Mg Tablet 1 Tab PO DAILY Metformin Hcl 1,000 Mg Tablet 1,000 Mg PO BIDWMEALS Pioglitazone Hcl 45 Mg Tablet 45 Mg PO DAILY Doxazosin Mesylate 4 Mg Tablet 4 Mg PO DAILY Glipizide Er (Glipizide) 10 Mg Tab.er.24 10 Mg PO BID Benazepril Hcl 20 Mg Tablet 20 Mg PO DAILY Vitals/I & O Vital Sign - Last 24 Hours 11/04/17 11/04/17 11/04/17 11/04/17 17:10 17:33 17:35 18:26 Temp 100.6 100.4 100.6 100.4 Pulse 94 90 90 Resp 22 22 18 B/P (MAP) 183/76 (111) Pulse Ox 92 100 97 98 O2 Delivery Room Air Nasal Cannula O2 Flow Rate 2.0 11/04/17 11/04/17 11/04/17 11/04/17 19:51 20:06 21:06 21:55 Pulse 95 95 Resp 20 B/P (MAP) 154/69 (97) 154/69 Pulse Ox 96 O2 Delivery Room Air Nasal Cannula Room Air O2 Flow Rate 2.0 2.0 11/04/17 11/05/17 11/05/17 11/05/17 23:00 03:00 07:00 08:00 Temp 97.5 98.0 98.1 97.5 98.0 98.1 Pulse 91 92 85 Resp 18 18 18 B/P (MAP) 165/66 (99) 167/77 (107) 136/71 (92) Pulse Ox 95 92 96 O2 Delivery Room Air Room Air Room Air Room Air 11/05/17 11/05/17 11/05/17 11/05/17 08:01 11:03 11:29 11:59 Temp 99.3 99.3 Pulse 93 93 Resp 18 B/P (MAP) 142/57 (85) 142/57 Pulse Ox 88 94 O2 Delivery Room Air Room Air Room Air Intake and Output 11/04/17 11/04/17 11/05/17 14:59 22:59 06:59 Intake Total 300 ml Balance 300 ml BROOKE LINTON III DO Nov 05, 2017 13:12
[2017-11-05 15:00] VITALS: BP 132/65
[2017-11-05] MEDS: glipiZIDE 5 MG TABLET PO SCH (16:41)
[2017-11-05] MEDS ORDERED: INSULIN ASPART 300 UNITS/3 ML INSULN.PEN SQ ONE (16:45)
[2017-11-05] MEDS: PHENOL ORAL SPRAY 177ML BOTTLE. PO PRN (18:51)
[2017-11-05 19:00] VITALS: BP 98/44
[2017-11-05] MEDS: DOXAZOSIN MESYLATE 4 MG TABLET. PO SCH (21:00)
[2017-11-05 23:00] VITALS: BP 98/49
[2017-11-06 03:00] VITALS: BP 110/55
[2017-11-06] MEDS: HEPARIN PF for SUB-Q USE 5,000 UNIT/0.5 ML VIAL. SQ SCH ×3 (05:10→21:51)
[2017-11-06 07:00] VITALS: BP 146/74
[2017-11-06] MEDS: PANTOPRAZOLE 40 MG TABLET.DR. PO SCH (07:27)
[2017-11-06] MEDS: glipiZIDE 5 MG TABLET PO SCH ×2 (07:27→17:19)
[2017-11-06] MEDS: INSULIN ASPART 300 UNITS/3 ML INSULN.PEN SQ SCH ×3 (07:30→17:24)
[2017-11-06 07:56] LABS: BASO % 0 % (0-3); EOS % 0 % (0-3); HEMATOCRIT 33.7 % (39.0-53.0); HEMOGLOBIN 10.8 g/dL (13.0-17.5); LYMPH # 1.5 x10^3/uL (1.0-4.8); LYMPH % 14 % (24-48); MEAN CORPUSCULAR HEMOGLOBIN 29 pg (25-35); MEAN CORPUSCULAR HGB CONC 32 g/dL (31-37); MEAN CORPUSCULAR VOLUME 91 fL (79-100); MONO % 8 % (0-9); NEUT % 78 % (31-73); PLATELET COUNT 190 x10^3/uL (140-400); RED BLOOD COUNT 3.72 x10^6/uL (4.30-5.70); RED CELL DISTRIBUTION WIDTH 15.1 % (11.5-14.5); WHITE BLOOD COUNT 10.7 x10^3/uL (4.0-11.0)
[2017-11-06] MEDS: IPRATRPIUM/ALBUTEROL 0.5/2.5MG 3 ML NEBU. NEB SCH ×4 (08:12→19:44)
[2017-11-06 08:27] LABS: CALCIUM 8.4 mg/dL (8.5-10.1); CREATININE 2.6 mg/dL (0.7-1.3); GFR 24.2; POTASSIUM 4.5 mmol/L (3.5-5.1)
[2017-11-06] MEDS: OSELTAMIVIR 30 MG CAPSULE PO SCH ×2 (08:31→21:50)
[2017-11-06] MEDS: LINAGLIPTIN 5 MG TABLET PO SCH (08:31)
[2017-11-06] MEDS: SIMVASTATIN 40 MG TABLET. PO SCH (08:31)
[2017-11-06] MEDS: PIOGLITAZONE 15 MG TABLET. PO SCH (08:32)
[2017-11-06] MEDS: PHENOL ORAL SPRAY 177ML BOTTLE. PO PRN ×3 (08:32→17:19)
[2017-11-06] MEDS: LISINOPRIL 20 MG TABLET PO SCH (08:32)
[2017-11-06] MEDS: methylPREDNISolone SOD SUCC PF 40 MG/ML VIAL. IV SCH (08:32)
[2017-11-06] MEDS: IV NORMAL SALINE 1000ML BAG 1,000 ML IV SCH ×2 (10:31→21:52)
[2017-11-06 11:00] VITALS: BP 114/53
--- NOTE | 2017-11-06 12:57 | PDOC2 ---
CONSULT Date of Consult Date of Consult DATE: 11/06/17 TIME: 12:45 Reason for Consult Reason for Consult: CKD III Referring Physician Referring Physician: Dr Hernandez Identification/Chief Complaint Chief Complaint FLU Problems: Source Source: Chart review, Patient History of Present Illness Reason for Visit: as dictated Past Medical History Cardiovascular: HTN Renal/: Chronic renal insuff Endocrine: Diabetes Family History Family History: No Significant, Diabetes Social History No ALCOHOL: none Lives: with Family Current Problem List Problem List Problems Medical Problems: (1) Elevated brain natriuretic peptide (BNP) level Status: Acute (2) Hypomagnesemia Status: Acute (3) Influenza A Status: Acute (4) Rhabdomyolysis Status: Acute Current Medications Current Medications Current Medications Albuterol/ Ipratropium (Duoneb) 3 ml 1X ONCE NEB Last administered on 17:34; Start 11/04/17 at 17:30; Stop 11/04/17 at 17:31; Status DC Sodium Chloride 1,000 ml @ 1,000 mls/hr 1X ONCE IV Last administered on 17:42; Start 11/04/17 at 17:30; Stop 11/04/17 at 18:29; Status DC Methylprednisolone Sodium Succinate (SOLU-Medrol 125MG VIAL) 125 mg 1X ONCE IV Last administered on 11/04/17 17:42; Start 11/04/17 at 17:30; Stop 11/04/17 at 17:31; Status DC Oseltamivir Phosphate (Tamiflu) 75 mg 1X STAT PO Last administered on 18:24; Start 11/04/17 at 18:11; Stop 11/04/17 at 18:18; Status DC Magnesium Oxide (Magnesium Oxide) 800 mg 1X STAT PO Last administered on 20:35; Start 11/04/17 at 18:32; Stop 11/04/17 at 18:35; Status DC Acetaminophen (Tylenol) 1,000 mg 1X ONCE PO Last administered on 11/04/17 18: 40; Start 11/04/17 at 18:45; Stop 11/04/17 at 18:46; Status DC Ondansetron HCl (Zofran) 4 mg PRN Q8HRS PRN IV NAUSEA/VOMITING; Start 11/04/17 at 18:45; Stop 11/05/17 at 18:44; Status DC Fentanyl Citrate (Fentanyl 2ml Vial) 50 mcg PRN Q2HR PRN IV PAIN; Start at 18:45; Stop 11/05/17 at 18:44; Status DC Acetaminophen (Tylenol) 650 mg PRN Q6HRS PRN PO Headaches, Temp > 101.5F Last administered on 11/06/17 08:31; Start 11/04/17 at 20:45 Heparin Sodium (Porcine) (Heparin Sq) 5,000 unit Q8HRS SQ Last administered on 11/06/17 05:10; Start 11/04/17 at 22:00 Oseltamivir Phosphate (Tamiflu) 30 mg BID PO Last administered on 11/06/17 08: 31; Start 11/04/17 at 21:00; Stop 11/09/17 at 20:59 Albuterol/ Ipratropium (Duoneb) 3 ml RTQID NEB Last administered on 11/06/17 11:10; Start 11/05/17 at 08:00 Methylprednisolone Sodium Succinate (SOLU-Medrol 40MG VIAL) 40 mg Q24H IV Last administered on 11/06/17 08:32; Start 11/05/17 at 09:00 Insulin Aspart (NovoLOG) 0-5 UNITS TIDWMEALS SQ Last administered on 11/06/17 11:51; Start 11/05/17 at 08:00 Dextrose (Dextrose 50%-Water Syringe) 12.5 gm PRN Q15MIN PRN IV SEE COMMENTS; Start 11/04/17 at 20:45 Hydralazine HCl (Apresoline Inj) 10 mg PRN Q4HRS PRN IVP ELEVATED BP, SEE COMMENTS; Start 11/04/17 at 21:00 Pantoprazole Sodium (Protonix) 40 mg DAILYAC PO Last administered on 11/06/17 07:27; Start 11/05/17 at 07:30 Doxazosin Mesylate (Cardura) 4 mg QHS PO Last administered on 11/05/17 21:00; Start 11/04/17 at 21:00 Doxazosin Mesylate (Cardura) 4 mg DAILY PO ; Start 11/05/17 at 11:30; Status Cancel Metformin HCl (Glucophage) 1,000 mg BIDWMEALS PO Last administered on 08:31; Start 11/05/17 at 17:00 Simvastatin (Zocor) 40 mg DAILY PO Last administered on 11/06/17 08:31; Start 11/05/17 at 11:30 Lisinopril (Prinivil) 20 mg DAILY PO Last administered on 11/06/17 08:32; Start 11/05/17 at 11:30 Glipizide (Glucotrol) 10 mg BIDBFRMEAL PO Last administered on 11/06/17 07:27 ; Start 11/05/17 at 16:30 Pioglitazone HCl (Actos) 45 mg DAILY PO Last administered on 11/06/17 08:32; Start 11/05/17 at 12:00 Linagliptin (Tradjenta) 5 mg DAILY PO Last administered on 11/06/17 08:31; Start 11/05/17 at 12:00 Insulin Aspart (NovoLOG) 10 units 1X ONCE SQ Last administered on 11/05/17 16 :43; Start 11/05/17 at 16:45; Stop 11/05/17 at 16:46; Status DC Throat Lozenges (Chloraseptic) 1 spray PRN Q2HR PRN PO SORE THROAT Last administered on 11/06/17 08:32; Start 11/05/17 at 18:15 Sodium Chloride 1,000 ml @ 75 mls/hr [id number] IV Last administered on 10:31; Start 11/06/17 at 10:00 Active Scripts Active Reported Januvia (Sitagliptin Phosphate) 100 Mg Tablet 1 Tab PO DAILY Simvastatin 40 Mg Tablet 1 Tab PO DAILY Metformin Hcl 1,000 Mg Tablet 1,000 Mg PO BIDWMEALS Pioglitazone Hcl 45 Mg Tablet 45 Mg PO DAILY Doxazosin Mesylate 4 Mg Tablet 4 Mg PO DAILY Glipizide Er (Glipizide) 10 Mg Tab.er.24 10 Mg PO BID Benazepril Hcl 20 Mg Tablet 20 Mg PO DAILY Allergies Allergies: Coded Allergies: No Known Drug Allergies (Unverified , 10/03/15) ROS Review of System GEN: + Fevers + Chills Body aches EYES: no new Visual Complaints ENT: no EN Drainage no Hearing deficiets CVS: no Orthopnea no CP RESP: no SOB no LEMONS + Cough GI: no Nausea no Vomiting : no Dysuria no Urgency HEME: no easy bruising no Palp Ly Nodes NEURO no Focal Weakness no Sz PSYCH: no Suicidal Ideation no Depression SKIN: no Rashes ENDO: no Polyuria or Polydipsia no Hot/Cold Intolerance MU SK: + Arthraigia + Myalgia Physical Exam Physical Exam General Appearance: Awake Alert Oriented x 3 In no Distress Eyes: VIsion Unchanged Conjunctiva Normal EN: No EN Drainage Mucous Memb. moist Neck: no JVD no JVP Supple no Thyromegaly - short thick neck , double chin CVS: S1 S2 no Murmur No Gallop No Rub no Edema Resp: no Rales occ Rhonchi no Acc. Muscle use GI: BAS +ve NO Bruit Non Tender Non Distended - obese : no CVA tenderness; no Suprapubic Tenderness SKIN: no Rashes Breast Exam deferred Mu.Sk: Adequate ROM no Muscle Atrophy Heme: Unable to palpate Obvious LAD no Splenomegaly NEURO: Good Strength and Tone Cranial Nerves II - XII grossly intact Psych: no Depressed no Active hallucination Vital Signs Vital Signs Date Time Temp Pulse Resp B/P (MAP) Pulse Ox O2 Delivery O2 Flow Rate FiO2 11/06/17 11:12 Room Air 11/06/17 11:00 98.1 87 20 114/53 (73) 94 98.1 11/06/17 08:00 2.0 Assessment & Plan Bernice - presumed from Flu A. IVF as ordered. Current FLuid and E-lyte status does not necessitate emergent need for Dialysis. Will re-evaluate for Dialysis in am - doubt Ac GN. CKD III - DM/ HTNsive / NS - Baseline clsoe to 1.8 Anemia:chec Iron HTN: rel well controlled currently. Current BP meds reviewed. See orders for changes. Proteinruia - Presumed DM/ HTNsive / NS - quantitate with ratio Discussed Plan of Care and prognosis etc. at length with family. Labs Labs Laboratory Tests Test 11/04/17 17:20 11/04/17 17:30 11/04/17 18:33 11/04/17 20:35 Influenza Type A Antigen Positive (NEGATIVE) Influenza Type B Antigen Negative (NEGATIVE) White Blood Count 7.8 x10^3/uL (4.0-11.0) Red Blood Count 3.72 x10^6/uL (4.30-5.70) Hemoglobin 10.7 g/dL (13.0-17.5) Hematocrit 33.5 % (39.0-53.0) Mean Corpuscular Volume 90 fL (79-100) Mean Corpuscular Hemoglobin 29 pg (25-35) Mean Corpuscular Hemoglobin Concent 32 g/dL (31-37) Red Cell Distribution Width 14.7 % (11.5-14.5) Platelet Count 173 x10^3/uL (140-400) Neutrophils (%) (Auto) 83 % (31-73) Lymphocytes (%) (Auto) 7 % (24-48) Monocytes (%) (Auto) 10 % (0-9) Eosinophils (%) (Auto) 0 % (0-3) Basophils (%) (Auto) 1 % (0-3) Neutrophils # (Auto) 6.4 x10^3uL (1.8-7.7) Lymphocytes # (Auto) 0.5 x10^3/uL (1.0-4.8) Monocytes # (Auto) 0.8 x10^3/uL (0.0-1.1) Eosinophils # (Auto) 0.0 x10^3/uL (0.0-0.7) Basophils # (Auto) 0.0 x10^3/uL (0.0-0.2) Prothrombin Time 13.8 SEC (11.7-14.0) Prothromb Time International Ratio 1.1 (0.8-1.1) Activated Partial Thromboplast Time 33 SEC (24-38) Sodium Level 139 mmol/L (136-145) Potassium Level 4.7 mmol/L (3.5-5.1) Chloride Level 102 mmol/L (98-107) Carbon Dioxide Level 26 mmol/L (21-32) Anion Gap 11 (6-14) Blood Urea Nitrogen 19 mg/dL (8-26) Creatinine 1.7 mg/dL (0.7-1.3) Estimated GFR (Cockcroft-Gault) 39.5 BUN/Creatinine Ratio 11 (6-20) Glucose Level 234 mg/dL (70-99) Lactic Acid Level 1.4 mmol/L (0.4-2.0) Calcium Level 8.4 mg/dL (8.5-10.1) Magnesium Level 1.3 mg/dL (1.8-2.4) Total Bilirubin 0.3 mg/dL (0.2-1.0) Aspartate Amino Transf (AST/SGOT) 26 U/L (15-37) Alanine Aminotransferase (ALT/SGPT) 24 U/L (16-63) Alkaline Phosphatase 71 U/L (46-116) Creatine Kinase 462 U/L (39-308) Troponin I Quantitative 0.023 ng/mL (0.000-0.055) WU-Ogh-I-Type Natriuretic Peptide 1575 pg/mL (0-449) Total Protein 7.4 g/dL (6.4-8.2) Albumin 3.3 g/dL (3.4-5.0) Albumin/Globulin Ratio 0.8 (1.0-1.7) Lipase 146 U/L (73-393) Urine Collection Type Unknown Urine Color Yellow Urine Clarity Clear Urine pH 5.5 Urine Specific [place] 1.020 Urine Protein >=300 mg/dL (NEG-TRACE) Urine Glucose (UA) 100 mg/dL (NEG) Urine Ketones (Stick) Negative mg/dL (NEG) Urine Blood Moderate (NEG) Urine Nitrite Negative (NEG) Urine Bilirubin Negative (NEG) Urine Urobilinogen Dipstick 0.2 mg/dL (0.2 mg/dL) Urine Leukocyte Esterase Negative (NEG) Urine RBC 1-2 /HPF (0-2) Urine WBC Rare /HPF (0-4) Urine Squamous Epithelial Cells Few /LPF Urine Bacteria Few /HPF (0-FEW) Urine Mucus Mod /LPF Glucose (Fingerstick) 285 mg/dL (70-99) Test 11/05/17 03:50 11/05/17 07:21 11/05/17 10:56 11/05/17 16:25 White Blood Count 8.2 x10^3/uL (4.0-11.0) Red Blood Count 3.82 x10^6/uL (4.30-5.70) Hemoglobin 11.1 g/dL (13.0-17.5) Hematocrit 34.7 % (39.0-53.0) Mean Corpuscular Volume 91 fL (79-100) Mean Corpuscular Hemoglobin 29 pg (25-35) Mean Corpuscular Hemoglobin Concent 32 g/dL (31-37) Red Cell Distribution Width 15.2 % (11.5-14.5) Platelet Count 172 x10^3/uL (140-400) Neutrophils (%) (Auto) 89 % (31-73) Lymphocytes (%) (Auto) 6 % (24-48) Monocytes (%) (Auto) 5 % (0-9) Eosinophils (%) (Auto) 0 % (0-3) Basophils (%) (Auto) 0 % (0-3) Neutrophils # (Auto) 7.3 x10^3uL (1.8-7.7) Lymphocytes # (Auto) 0.5 x10^3/uL (1.0-4.8) Monocytes # (Auto) 0.4 x10^3/uL (0.0-1.1) Eosinophils # (Auto) 0.0 x10^3/uL (0.0-0.7) Basophils # (Auto) 0.0 x10^3/uL (0.0-0.2) Segmented Neutrophils % 86 % (35-66) Lymphocytes % 7 % (24-48) Monocytes % 7 % (0-10) Platelet Estimate Adequate (ADEQUATE) Large Platelets Few Target Cells Occ Sodium Level 139 mmol/L (136-145) Potassium Level 5.0 mmol/L (3.5-5.1) Chloride Level 103 mmol/L (98-107) Carbon Dioxide Level 27 mmol/L (21-32) Anion Gap 9 (6-14) Blood Urea Nitrogen 22 mg/dL (8-26) Creatinine 1.7 mg/dL (0.7-1.3) Estimated GFR (Cockcroft-Gault) 39.5 Glucose Level 303 mg/dL (70-99) Calcium Level 8.5 mg/dL (8.5-10.1) Glucose (Fingerstick) 236 mg/dL (70-99) 270 mg/dL (70-99) 367 mg/dL (70-99) Test 11/05/17 21:16 11/06/17 07:26 11/06/17 07:40 Glucose (Fingerstick) 293 mg/dL (70-99) 106 mg/dL (70-99) White Blood Count 10.7 x10^3/uL (4.0-11.0) Red Blood Count 3.72 x10^6/uL (4.30-5.70) Hemoglobin 10.8 g/dL (13.0-17.5) Hematocrit 33.7 % (39.0-53.0) Mean Corpuscular Volume 91 fL (79-100) Mean Corpuscular Hemoglobin 29 pg (25-35) Mean Corpuscular Hemoglobin Concent 32 g/dL (31-37) Red Cell Distribution Width 15.1 % (11.5-14.5) Platelet Count 190 x10^3/uL (140-400) Neutrophils (%) (Auto) 78 % (31-73) Lymphocytes (%) (Auto) 14 % (24-48) Monocytes (%) (Auto) 8 % (0-9) Eosinophils (%) (Auto) 0 % (0-3) Basophils (%) (Auto) 0 % (0-3) Neutrophils # (Auto) 8.3 x10^3uL (1.8-7.7) Lymphocytes # (Auto) 1.5 x10^3/uL (1.0-4.8) Monocytes # (Auto) 0.8 x10^3/uL (0.0-1.1) Eosinophils # (Auto) 0.0 x10^3/uL (0.0-0.7) Basophils # (Auto) 0.0 x10^3/uL (0.0-0.2) Sodium Level 140 mmol/L (136-145) Potassium Level 4.5 mmol/L (3.5-5.1) Chloride Level 104 mmol/L (98-107) Carbon Dioxide Level 28 mmol/L (21-32) Anion Gap 8 (6-14) Blood Urea Nitrogen 47 mg/dL (8-26) Creatinine 2.6 mg/dL (0.7-1.3) Estimated GFR (Cockcroft-Gault) 24.2 Glucose Level 120 mg/dL (70-99) Calcium Level 8.4 mg/dL (8.5-10.1) Laboratory Tests Test 11/05/17 16:25 11/05/17 21:16 11/06/17 07:26 11/06/17 07:40 Glucose (Fingerstick) 367 mg/dL (70-99) 293 mg/dL (70-99) 106 mg/dL (70-99) White Blood Count 10.7 x10^3/uL (4.0-11.0) Red Blood Count 3.72 x10^6/uL (4.30-5.70) Hemoglobin 10.8 g/dL (13.0-17.5) Hematocrit 33.7 % (39.0-53.0) Mean Corpuscular Volume 91 fL (79-100) Mean Corpuscular Hemoglobin 29 pg (25-35) Mean Corpuscular Hemoglobin Concent 32 g/dL (31-37) Red Cell Distribution Width 15.1 % (11.5-14.5) Platelet Count 190 x10^3/uL (140-400) Neutrophils (%) (Auto) 78 % (31-73) Lymphocytes (%) (Auto) 14 % (24-48) Monocytes (%) (Auto) 8 % (0-9) Eosinophils (%) (Auto) 0 % (0-3) Basophils (%) (Auto) 0 % (0-3) Neutrophils # (Auto) 8.3 x10^3uL (1.8-7.7) Lymphocytes # (Auto) 1.5 x10^3/uL (1.0-4.8) Monocytes # (Auto) 0.8 x10^3/uL (0.0-1.1) Eosinophils # (Auto) 0.0 x10^3/uL (0.0-0.7) Basophils # (Auto) 0.0 x10^3/uL (0.0-0.2) Sodium Level 140 mmol/L (136-145) Potassium Level 4.5 mmol/L (3.5-5.1) Chloride Level 104 mmol/L (98-107) Carbon Dioxide Level 28 mmol/L (21-32) Anion Gap 8 (6-14) Blood Urea Nitrogen 47 mg/dL (8-26) Creatinine 2.6 mg/dL (0.7-1.3) Estimated GFR (Cockcroft-Gault) 24.2 Glucose Level 120 mg/dL (70-99) Calcium Level 8.4 mg/dL (8.5-10.1) Images Images Portable chest, 11/04/2017: History: Shortness of breath Cough, fever The heart size and pulmonary vascularity are normal. There is calcific plaquing of the aorta. No pulmonary infiltrates are seen. There is no evidence of pleural fluid. IMPRESSION: No acute cardiopulmonary abnormality is detected. EDUARDO JACKMAN MD Nov 06, 2017 12:57
[2017-11-06] MEDS ORDERED: MAGNESIUM SULFATE 2GM 50 ML IV PRN (13:00)
--- NOTE | 2017-11-06 13:38 | PDOC ---
PROGRESS NOTES Chief Complaint Chief Complaint Cough, Fever, Chills Influenza A + HTN DM 2 JOSETTE - presumed from Flu A CKD III Anemia History of Present Illness History of Present Illness Pt. seen and examined today, droplet precautions in place, pt sitting upright in reclining chair Pt. states he is feeling better, has been eating and drinking water normally, BUN an Cr increased today Care discussed with RN Vitals Vitals Vital Signs Date Time Temp Pulse Resp B/P (MAP) Pulse Ox O2 Delivery O2 Flow Rate FiO2 11/06/17 11:12 Room Air 11/06/17 11:00 98.1 87 20 114/53 (73) 94 98.1 11/06/17 08:00 2.0 Physical Exam Physical Exam Eyes: Sclera anicteric Neuro: [employer] II-XII grossly intact b/l General: Alert, Oriented X3, Cooperative, No acute distress Heart: Regular rate, Normal S1, Normal S2 Lungs: Clear, Other (No wheezes or crackles) Abdomen: Normal bowel sounds, Soft Extremities: No clubbing, No cyanosis Skin: No rashes, No breakdown Labs LABS Laboratory Tests Test 11/05/17 16:25 11/05/17 21:16 11/06/17 07:26 11/06/17 07:40 Glucose (Fingerstick) 367 mg/dL (70-99) 293 mg/dL (70-99) 106 mg/dL (70-99) White Blood Count 10.7 x10^3/uL (4.0-11.0) Red Blood Count 3.72 x10^6/uL (4.30-5.70) Hemoglobin 10.8 g/dL (13.0-17.5) Hematocrit 33.7 % (39.0-53.0) Mean Corpuscular Volume 91 fL (79-100) Mean Corpuscular Hemoglobin 29 pg (25-35) Mean Corpuscular Hemoglobin Concent 32 g/dL (31-37) Red Cell Distribution Width 15.1 % (11.5-14.5) Platelet Count 190 x10^3/uL (140-400) Neutrophils (%) (Auto) 78 % (31-73) Lymphocytes (%) (Auto) 14 % (24-48) Monocytes (%) (Auto) 8 % (0-9) Eosinophils (%) (Auto) 0 % (0-3) Basophils (%) (Auto) 0 % (0-3) Neutrophils # (Auto) 8.3 x10^3uL (1.8-7.7) Lymphocytes # (Auto) 1.5 x10^3/uL (1.0-4.8) Monocytes # (Auto) 0.8 x10^3/uL (0.0-1.1) Eosinophils # (Auto) 0.0 x10^3/uL (0.0-0.7) Basophils # (Auto) 0.0 x10^3/uL (0.0-0.2) Sodium Level 140 mmol/L (136-145) Potassium Level 4.5 mmol/L (3.5-5.1) Chloride Level 104 mmol/L (98-107) Carbon Dioxide Level 28 mmol/L (21-32) Anion Gap 8 (6-14) Blood Urea Nitrogen 47 mg/dL (8-26) Creatinine 2.6 mg/dL (0.7-1.3) Estimated GFR (Cockcroft-Gault) 24.2 Glucose Level 120 mg/dL (70-99) Calcium Level 8.4 mg/dL (8.5-10.1) Review of Systems Review of Systems CV: Denies CP RESP: Denies shortness of breath GI: Denies N/V Assessment and Plan Assessmemt and Plan Problems Medical Problems: (1) Elevated brain natriuretic peptide (BNP) level Status: Acute (2) Hypomagnesemia Status: Acute (3) Influenza A Status: Acute (4) Rhabdomyolysis Status: Acute Assessment: Cough, Fever, Chills Influenza A + HTN DM 2 JOSETTE - presumed from Flu A CKD III Anemia Plan: NS 75cc/hr ordered Consult nephrology, rising BUN and Cr Continue Tamiflu Continue home medications Recheck labs in am Problems: Comment Review of Relevant I have reviewed the following items elisa (where applicable) has been applied. Labs Laboratory Tests Test 11/04/17 17:20 11/04/17 17:30 11/04/17 18:33 11/04/17 20:35 Influenza Type A Antigen Positive (NEGATIVE) Influenza Type B Antigen Negative (NEGATIVE) White Blood Count 7.8 x10^3/uL (4.0-11.0) Red Blood Count 3.72 x10^6/uL (4.30-5.70) Hemoglobin 10.7 g/dL (13.0-17.5) Hematocrit 33.5 % (39.0-53.0) Mean Corpuscular Volume 90 fL (79-100) Mean Corpuscular Hemoglobin 29 pg (25-35) Mean Corpuscular Hemoglobin Concent 32 g/dL (31-37) Red Cell Distribution Width 14.7 % (11.5-14.5) Platelet Count 173 x10^3/uL (140-400) Neutrophils (%) (Auto) 83 % (31-73) Lymphocytes (%) (Auto) 7 % (24-48) Monocytes (%) (Auto) 10 % (0-9) Eosinophils (%) (Auto) 0 % (0-3) Basophils (%) (Auto) 1 % (0-3) Neutrophils # (Auto) 6.4 x10^3uL (1.8-7.7) Lymphocytes # (Auto) 0.5 x10^3/uL (1.0-4.8) Monocytes # (Auto) 0.8 x10^3/uL (0.0-1.1) Eosinophils # (Auto) 0.0 x10^3/uL (0.0-0.7) Basophils # (Auto) 0.0 x10^3/uL (0.0-0.2) Prothrombin Time 13.8 SEC (11.7-14.0) Prothromb Time International Ratio 1.1 (0.8-1.1) Activated Partial Thromboplast Time 33 SEC (24-38) Sodium Level 139 mmol/L (136-145) Potassium Level 4.7 mmol/L (3.5-5.1) Chloride Level 102 mmol/L (98-107) Carbon Dioxide Level 26 mmol/L (21-32) Anion Gap 11 (6-14) Blood Urea Nitrogen 19 mg/dL (8-26) Creatinine 1.7 mg/dL (0.7-1.3) Estimated GFR (Cockcroft-Gault) 39.5 BUN/Creatinine Ratio 11 (6-20) Glucose Level 234 mg/dL (70-99) Lactic Acid Level 1.4 mmol/L (0.4-2.0) Calcium Level 8.4 mg/dL (8.5-10.1) Magnesium Level 1.3 mg/dL (1.8-2.4) Total Bilirubin 0.3 mg/dL (0.2-1.0) Aspartate Amino Transf (AST/SGOT) 26 U/L (15-37) Alanine Aminotransferase (ALT/SGPT) 24 U/L (16-63) Alkaline Phosphatase 71 U/L (46-116) Creatine Kinase 462 U/L (39-308) Troponin I Quantitative 0.023 ng/mL (0.000-0.055) DW-Pjm-G-Type Natriuretic Peptide 1575 pg/mL (0-449) Total Protein 7.4 g/dL (6.4-8.2) Albumin 3.3 g/dL (3.4-5.0) Albumin/Globulin Ratio 0.8 (1.0-1.7) Lipase 146 U/L (73-393) Urine Collection Type Unknown Urine Color Yellow Urine Clarity Clear Urine pH 5.5 Urine Specific Alpha 1.020 Urine Protein >=300 mg/dL (NEG-TRACE) Urine Glucose (UA) 100 mg/dL (NEG) Urine Ketones (Stick) Negative mg/dL (NEG) Urine Blood Moderate (NEG) Urine Nitrite Negative (NEG) Urine Bilirubin Negative (NEG) Urine Urobilinogen Dipstick 0.2 mg/dL (0.2 mg/dL) Urine Leukocyte Esterase Negative (NEG) Urine RBC 1-2 /HPF (0-2) Urine WBC Rare /HPF (0-4) Urine Squamous Epithelial Cells Few /LPF Urine Bacteria Few /HPF (0-FEW) Urine Mucus Mod /LPF Glucose (Fingerstick) 285 mg/dL (70-99) Test 11/05/17 03:50 11/05/17 07:21 11/05/17 10:56 11/05/17 16:25 White Blood Count 8.2 x10^3/uL (4.0-11.0) Red Blood Count 3.82 x10^6/uL (4.30-5.70) Hemoglobin 11.1 g/dL (13.0-17.5) Hematocrit 34.7 % (39.0-53.0) Mean Corpuscular Volume 91 fL (79-100) Mean Corpuscular Hemoglobin 29 pg (25-35) Mean Corpuscular Hemoglobin Concent 32 g/dL (31-37) Red Cell Distribution Width 15.2 % (11.5-14.5) Platelet Count 172 x10^3/uL (140-400) Neutrophils (%) (Auto) 89 % (31-73) Lymphocytes (%) (Auto) 6 % (24-48) Monocytes (%) (Auto) 5 % (0-9) Eosinophils (%) (Auto) 0 % (0-3) Basophils (%) (Auto) 0 % (0-3) Neutrophils # (Auto) 7.3 x10^3uL (1.8-7.7) Lymphocytes # (Auto) 0.5 x10^3/uL (1.0-4.8) Monocytes # (Auto) 0.4 x10^3/uL (0.0-1.1) Eosinophils # (Auto) 0.0 x10^3/uL (0.0-0.7) Basophils # (Auto) 0.0 x10^3/uL (0.0-0.2) Segmented Neutrophils % 86 % (35-66) Lymphocytes % 7 % (24-48) Monocytes % 7 % (0-10) Platelet Estimate Adequate (ADEQUATE) Large Platelets Few Target Cells Occ Sodium Level 139 mmol/L (136-145) Potassium Level 5.0 mmol/L (3.5-5.1) Chloride Level 103 mmol/L (98-107) Carbon Dioxide Level 27 mmol/L (21-32) Anion Gap 9 (6-14) Blood Urea Nitrogen 22 mg/dL (8-26) Creatinine 1.7 mg/dL (0.7-1.3) Estimated GFR (Cockcroft-Gault) 39.5 Glucose Level 303 mg/dL (70-99) Calcium Level 8.5 mg/dL (8.5-10.1) Glucose (Fingerstick) 236 mg/dL (70-99) 270 mg/dL (70-99) 367 mg/dL (70-99) Test 11/05/17 21:16 11/06/17 07:26 11/06/17 07:40 Glucose (Fingerstick) 293 mg/dL (70-99) 106 mg/dL (70-99) White Blood Count 10.7 x10^3/uL (4.0-11.0) Red Blood Count 3.72 x10^6/uL (4.30-5.70) Hemoglobin 10.8 g/dL (13.0-17.5) Hematocrit 33.7 % (39.0-53.0) Mean Corpuscular Volume 91 fL (79-100) Mean Corpuscular Hemoglobin 29 pg (25-35) Mean Corpuscular Hemoglobin Concent 32 g/dL (31-37) Red Cell Distribution Width 15.1 % (11.5-14.5) Platelet Count 190 x10^3/uL (140-400) Neutrophils (%) (Auto) 78 % (31-73) Lymphocytes (%) (Auto) 14 % (24-48) Monocytes (%) (Auto) 8 % (0-9) Eosinophils (%) (Auto) 0 % (0-3) Basophils (%) (Auto) 0 % (0-3) Neutrophils # (Auto) 8.3 x10^3uL (1.8-7.7) Lymphocytes # (Auto) 1.5 x10^3/uL (1.0-4.8) Monocytes # (Auto) 0.8 x10^3/uL (0.0-1.1) Eosinophils # (Auto) 0.0 x10^3/uL (0.0-0.7) Basophils # (Auto) 0.0 x10^3/uL (0.0-0.2) Sodium Level 140 mmol/L (136-145) Potassium Level 4.5 mmol/L (3.5-5.1) Chloride Level 104 mmol/L (98-107) Carbon Dioxide Level 28 mmol/L (21-32) Anion Gap 8 (6-14) Blood Urea Nitrogen 47 mg/dL (8-26) Creatinine 2.6 mg/dL (0.7-1.3) Estimated GFR (Cockcroft-Gault) 24.2 Glucose Level 120 mg/dL (70-99) Calcium Level 8.4 mg/dL (8.5-10.1) Laboratory Tests Test 11/05/17 16:25 11/05/17 21:16 11/06/17 07:26 11/06/17 07:40 Glucose (Fingerstick) 367 mg/dL (70-99) 293 mg/dL (70-99) 106 mg/dL (70-99) White Blood Count 10.7 x10^3/uL (4.0-11.0) Red Blood Count 3.72 x10^6/uL (4.30-5.70) Hemoglobin 10.8 g/dL (13.0-17.5) Hematocrit 33.7 % (39.0-53.0) Mean Corpuscular Volume 91 fL (79-100) Mean Corpuscular Hemoglobin 29 pg (25-35) Mean Corpuscular Hemoglobin Concent 32 g/dL (31-37) Red Cell Distribution Width 15.1 % (11.5-14.5) Platelet Count 190 x10^3/uL (140-400) Neutrophils (%) (Auto) 78 % (31-73) Lymphocytes (%) (Auto) 14 % (24-48) Monocytes (%) (Auto) 8 % (0-9) Eosinophils (%) (Auto) 0 % (0-3) Basophils (%) (Auto) 0 % (0-3) Neutrophils # (Auto) 8.3 x10^3uL (1.8-7.7) Lymphocytes # (Auto) 1.5 x10^3/uL (1.0-4.8) Monocytes # (Auto) 0.8 x10^3/uL (0.0-1.1) Eosinophils # (Auto) 0.0 x10^3/uL (0.0-0.7) Basophils # (Auto) 0.0 x10^3/uL (0.0-0.2) Sodium Level 140 mmol/L (136-145) Potassium Level 4.5 mmol/L (3.5-5.1) Chloride Level 104 mmol/L (98-107) Carbon Dioxide Level 28 mmol/L (21-32) Anion Gap 8 (6-14) Blood Urea Nitrogen 47 mg/dL (8-26) Creatinine 2.6 mg/dL (0.7-1.3) Estimated GFR (Cockcroft-Gault) 24.2 Glucose Level 120 mg/dL (70-99) Calcium Level 8.4 mg/dL (8.5-10.1) Microbiology 11/04/17 Blood Culture - Preliminary, Resulted NO GROWTH AFTER 1 DAY Medications Current Medications Albuterol/ Ipratropium (Duoneb) 3 ml 1X ONCE NEB Last administered on t 17:34; Start 11/04/17 at 17:30; Stop 11/04/17 at 17:31; Status DC Sodium Chloride 1,000 ml @ 1,000 mls/hr 1X ONCE IV Last administered on 17:42; Start 11/04/17 at 17:30; Stop 11/04/17 at 18:29; Status DC Methylprednisolone Sodium Succinate (SOLU-Medrol 125MG VIAL) 125 mg 1X ONCE IV Last administered on 11/04/17 17:42; Start 11/04/17 at 17:30; Stop 11/04/17 at 17:31; Status DC Oseltamivir Phosphate (Tamiflu) 75 mg 1X STAT PO Last administered on 18:24; Start 11/04/17 at 18:11; Stop 11/04/17 at 18:18; Status DC Magnesium Oxide (Magnesium Oxide) 800 mg 1X STAT PO Last administered on 20:35; Start 11/04/17 at 18:32; Stop 11/04/17 at 18:35; Status DC Acetaminophen (Tylenol) 1,000 mg 1X ONCE PO Last administered on 11/04/17 18: 40; Start 11/04/17 at 18:45; Stop 11/04/17 at 18:46; Status DC Ondansetron HCl (Zofran) 4 mg PRN Q8HRS PRN IV NAUSEA/VOMITING; Start 11/04/17 at 18:45; Stop 11/05/17 at 18:44; Status DC Fentanyl Citrate (Fentanyl 2ml Vial) 50 mcg PRN Q2HR PRN IV PAIN; Start at 18:45; Stop 11/05/17 at 18:44; Status DC Acetaminophen (Tylenol) 650 mg PRN Q6HRS PRN PO Headaches, Temp > 101.5F Last administered on 11/06/17 08:31; Start 11/04/17 at 20:45 Heparin Sodium (Porcine) (Heparin Sq) 5,000 unit Q8HRS SQ Last administered on 11/06/17 05:10; Start 11/04/17 at 22:00 Oseltamivir Phosphate (Tamiflu) 30 mg BID PO Last administered on 11/06/17 08: 31; Start 11/04/17 at 21:00; Stop 11/09/17 at 20:59 Albuterol/ Ipratropium (Duoneb) 3 ml RTQID NEB Last administered on 11/06/17 11:10; Start 11/05/17 at 08:00 Methylprednisolone Sodium Succinate (SOLU-Medrol 40MG VIAL) 40 mg Q24H IV Last administered on 11/06/17 08:32; Start 11/05/17 at 09:00 Insulin Aspart (NovoLOG) 0-5 UNITS TIDWMEALS SQ Last administered on 11/06/17 11:51; Start 11/05/17 at 08:00 Dextrose (Dextrose 50%-Water Syringe) 12.5 gm PRN Q15MIN PRN IV SEE COMMENTS; Start 11/04/17 at 20:45 Hydralazine HCl (Apresoline Inj) 10 mg PRN Q4HRS PRN IVP ELEVATED BP, SEE COMMENTS; Start 11/04/17 at 21:00 Pantoprazole Sodium (Protonix) 40 mg DAILYAC PO Last administered on 11/06/17 07:27; Start 11/05/17 at 07:30 Doxazosin Mesylate (Cardura) 4 mg QHS PO Last administered on 11/05/17 21:00; Start 11/04/17 at 21:00 Doxazosin Mesylate (Cardura) 4 mg DAILY PO ; Start 11/05/17 at 11:30; Status Cancel Metformin HCl (Glucophage) 1,000 mg BIDWMEALS PO Last administered on 08:31; Start 11/05/17 at 17:00 Simvastatin (Zocor) 40 mg DAILY PO Last administered on 11/06/17 08:31; Start 11/05/17 at 11:30 Lisinopril (Prinivil) 20 mg DAILY PO Last administered on 11/06/17 08:32; Start 11/05/17 at 11:30 Glipizide (Glucotrol) 10 mg BIDBFRMEAL PO Last administered on 11/06/17 07:27 ; Start 11/05/17 at 16:30 Pioglitazone HCl (Actos) 45 mg DAILY PO Last administered on 11/06/17 08:32; Start 11/05/17 at 12:00 Linagliptin (Tradjenta) 5 mg DAILY PO Last administered on 11/06/17 08:31; Start 11/05/17 at 12:00 Insulin Aspart (NovoLOG) 10 units 1X ONCE SQ Last administered on 11/05/17 16 :43; Start 11/05/17 at 16:45; Stop 11/05/17 at 16:46; Status DC Throat Lozenges (Chloraseptic) 1 spray PRN Q2HR PRN PO SORE THROAT Last administered on 11/06/17 08:32; Start 11/05/17 at 18:15 Sodium Chloride 1,000 ml @ 75 mls/hr [id number] IV Last administered on 10:31; Start 11/06/17 at 10:00 Magnesium Sulfate/ Dextrose 50 ml @ 25 mls/hr PRN DAILY PRN IV for Mag < 1.7 on am labs; Start 11/06/17 at 13:00 Active Scripts Active Reported Januvia (Sitagliptin Phosphate) 100 Mg Tablet 1 Tab PO DAILY Simvastatin 40 Mg Tablet 1 Tab PO DAILY Metformin Hcl 1,000 Mg Tablet 1,000 Mg PO BIDWMEALS Pioglitazone Hcl 45 Mg Tablet 45 Mg PO DAILY Doxazosin Mesylate 4 Mg Tablet 4 Mg PO DAILY Glipizide Er (Glipizide) 10 Mg Tab.er.24 10 Mg PO BID Benazepril Hcl 20 Mg Tablet 20 Mg PO DAILY Vitals/I & O Vital Sign - Last 24 Hours 11/05/17 11/05/17 11/05/17 11/05/17 15:00 15:12 19:00 19:30 Temp 98.8 97.9 98.8 97.9 Pulse 87 99 Resp 18 20 B/P (MAP) 132/65 (87) 98/44 (62) Pulse Ox 91 93 97 O2 Delivery Room Air Room Air Room Air Room Air 11/05/17 11/05/17 11/05/17 11/06/17 20:00 21:00 23:00 03:00 Temp 98.0 98.7 98.0 98.7 Pulse 87 100 98 Resp 22 20 B/P (MAP) 132/65 98/49 (65) 110/55 (73) Pulse Ox 94 92 O2 Delivery Room Air Room Air Room Air 11/06/17 11/06/17 11/06/17 11/06/17 07:00 08:00 08:12 08:32 Temp 100.2 100.2 Pulse 94 94 Resp 20 B/P (MAP) 146/74 (98) 146/74 Pulse Ox 91 94 O2 Delivery Room Air Nasal Cannula Room Air O2 Flow Rate 2.0 11/06/17 11/06/17 11:00 11:12 Temp 98.1 98.1 Pulse 87 Resp 20 B/P (MAP) 114/53 (73) Pulse Ox 94 O2 Delivery Room Air Room Air Intake and Output 11/05/17 11/05/17 11/06/17 15:00 23:00 07:00 Intake Total 150 ml 240 ml 300 ml Balance 150 ml 240 ml 300 ml BROOKE LINTON III DO Nov 06, 2017 13:38
[2017-11-06 15:00] VITALS: BP 127/67
[2017-11-06 15:16] LABS: % SAT IRON 7 % (15-34); IRON,SERUM 22 ug/dL (65-175)
[2017-11-06 19:00] VITALS: BP 151/55
[2017-11-06] MEDS: DOXAZOSIN MESYLATE 4 MG TABLET. PO SCH (21:50)
[2017-11-06] MEDS ORDERED: INSULIN DETEMIR 300 UNITS/3 ML INSULN.PEN. SQ SCH (22:30)
--- NOTE | 2017-11-06 22:49 | CONS ---
DATE OF CONSULTATION: PRIMARY PHYSICIAN: Dr. Garcia. REASON FOR CONSULTATION: Renal insufficiency. HISTORY OF PRESENT ILLNESS: The patient is a 77-year-old gentleman known to Dr. Alexandre, known to have CKD with baseline creatinine about 1.8-2.0. He was admitted here after he developed flu-like symptoms, had fevers, chills, generalized weakness and body aches, cough without phlegm production by his reports. No nausea, vomiting, diarrhea. He is known to have proteinuria, longstanding diabetes, hypertension. Creatinine has gotten somewhat worse from 1.8 to 2.6 and we were asked to see him for the same. He claims he has been urinating okay, has not had any urinary difficulty that he admits to at this time. Chest x-ray was clear. A1c is not available. Appetite has been somewhat down. In this setting, he is admitted to the hospital for further evaluation. We have been asked to see him for his renal insufficiency. PAST MEDICAL HISTORY: Positive for cataract extraction, lens implants, history of asthma, bronchitis, history of prostate cancer in the past, diabetes, CKD, hypertension, chronic anemia. FAMILY HISTORY: Positive for diabetes. He is not sure of renal insufficiency. For rest of detail, see electronic records. EDUARDO JACKMAN MD DR: JOANNA/santa JOB#: [id number] / [id number]
[2017-11-06 23:00] VITALS: BP 146/60
[2017-11-07 03:00] VITALS: BP 149/63
[2017-11-07 03:41] LABS: BASO % 0 % (0-3); EOS % 0 % (0-3); HEMATOCRIT 30.1 % (39.0-53.0); HEMOGLOBIN 9.6 g/dL (13.0-17.5); LYMPH % 13 % (24-48); MEAN CORPUSCULAR HEMOGLOBIN 29 pg (25-35); MEAN CORPUSCULAR HGB CONC 32 g/dL (31-37); MEAN CORPUSCULAR VOLUME 91 fL (79-100); MONO % 7 % (0-9); NEUT % 80 % (31-73); PLATELET COUNT 185 x10^3/uL (140-400); RED CELL DISTRIBUTION WIDTH 14.7 % (11.5-14.5); WHITE BLOOD COUNT 8.1 x10^3/uL (4.0-11.0)
[2017-11-07 04:08] LABS: GFR 32.7; PHOSPHORUS 3.4 mg/dL (2.6-4.7); POTASSIUM 4.6 mmol/L (3.5-5.1)
[2017-11-07] MEDS: HEPARIN PF for SUB-Q USE 5,000 UNIT/0.5 ML VIAL. SQ SCH (05:54)
[2017-11-07 07:35] VITALS: BP 147/70
[2017-11-07] MEDS: IPRATRPIUM/ALBUTEROL 0.5/2.5MG 3 ML NEBU. NEB SCH ×2 (07:47→11:41)
[2017-11-07] MEDS: SIMVASTATIN 40 MG TABLET. PO SCH (08:30)
[2017-11-07] MEDS: OSELTAMIVIR 30 MG CAPSULE PO SCH (08:30)
[2017-11-07] MEDS: PANTOPRAZOLE 40 MG TABLET.DR. PO SCH (08:30)
[2017-11-07] MEDS: glipiZIDE 5 MG TABLET PO SCH (08:30)
[2017-11-07] MEDS: PIOGLITAZONE 15 MG TABLET. PO SCH (08:31)
[2017-11-07] MEDS: LINAGLIPTIN 5 MG TABLET PO SCH (08:31)
[2017-11-07] MEDS: LISINOPRIL 20 MG TABLET PO SCH (08:31)
[2017-11-07] MEDS: methylPREDNISolone SOD SUCC PF 40 MG/ML VIAL. IV SCH (08:32)
[2017-11-07] MEDS: INSULIN ASPART 300 UNITS/3 ML INSULN.PEN SQ SCH ×2 (08:47→12:11)
[2017-11-07] MEDS: PHENOL ORAL SPRAY 177ML BOTTLE. PO PRN (08:48)
[2017-11-07 10:45] VITALS: BP 155/67
--- NOTE | 2017-11-07 12:07 | PDOC ---
Renal-Progress Notes Subjective Notes Notes NONE History of Present Illness Hx of present illness STABLE Vitals Vitals Vital Signs Date Time Temp Pulse Resp B/P (MAP) Pulse Ox O2 Delivery O2 Flow Rate FiO2 11/07/17 11:42 Room Air 11/07/17 10:45 97.5 78 18 155/67 (96) 94 97.5 11/07/17 08:00 2.0 Weight Weight [ ] I.O. Intake and Output Intake and Output 11/07/17 07:00 Intake Total 1155 ml Output Total 820 ml Balance 335 ml Intake Oral 600 ml IV Total 555 ml Output Urine Total 820 ml # Voids 4 Labs Labs Laboratory Tests Test 11/06/17 14:25 11/06/17 16:31 11/06/17 20:11 11/07/17 03:10 Erythrocyte Sedimentation Rate 74 (0-15) Iron Level 22 ug/dL (65-175) Total Iron Binding Capacity 323 ug/dL (250-450) Iron Saturation 7 % (15-34) Ferritin 122 ng/mL (26-388) Glucose (Fingerstick) 307 mg/dL (70-99) 296 mg/dL (70-99) White Blood Count 8.1 x10^3/uL (4.0-11.0) Red Blood Count 3.30 x10^6/uL (4.30-5.70) Hemoglobin 9.6 g/dL (13.0-17.5) Hematocrit 30.1 % (39.0-53.0) Mean Corpuscular Volume 91 fL (79-100) Mean Corpuscular Hemoglobin 29 pg (25-35) Mean Corpuscular Hemoglobin Concent 32 g/dL (31-37) Red Cell Distribution Width 14.7 % (11.5-14.5) Platelet Count 185 x10^3/uL (140-400) Neutrophils (%) (Auto) 80 % (31-73) Lymphocytes (%) (Auto) 13 % (24-48) Monocytes (%) (Auto) 7 % (0-9) Eosinophils (%) (Auto) 0 % (0-3) Basophils (%) (Auto) 0 % (0-3) Neutrophils # (Auto) 6.5 x10^3uL (1.8-7.7) Lymphocytes # (Auto) 1.0 x10^3/uL (1.0-4.8) Monocytes # (Auto) 0.6 x10^3/uL (0.0-1.1) Eosinophils # (Auto) 0.0 x10^3/uL (0.0-0.7) Basophils # (Auto) 0.0 x10^3/uL (0.0-0.2) Sodium Level 141 mmol/L (136-145) Potassium Level 4.6 mmol/L (3.5-5.1) Chloride Level 106 mmol/L (98-107) Carbon Dioxide Level 25 mmol/L (21-32) Anion Gap 10 (6-14) Blood Urea Nitrogen 49 mg/dL (8-26) Creatinine 2.0 mg/dL (0.7-1.3) Estimated GFR (Cockcroft-Gault) 32.7 Glucose Level 225 mg/dL (70-99) Calcium Level 8.0 mg/dL (8.5-10.1) Phosphorus Level 3.4 mg/dL (2.6-4.7) Magnesium Level 2.0 mg/dL (1.8-2.4) Albumin 3.0 g/dL (3.4-5.0) Test 11/07/17 07:36 11/07/17 11:26 Glucose (Fingerstick) 161 mg/dL (70-99) 234 mg/dL (70-99) Micro Micro Microbiology 11/04/17 Blood Culture - Preliminary, Resulted NO GROWTH AFTER 2 DAYS Review of Systems Constitutional: yes: weakness, alert, oriented Ears/Nose/Throat: Yes: no symptom reported Pulmonary: Yes no symptom reported Cardiovascular: Yes no symptom reported Gastrointestional: Yes: no symptom reported Genitourinary: Yes: no symptom reported Musculoskeletal: Yes: no symptom reported Skin: Yes no symptom reported Psychiatric/Neurological: Yes: no symptom reported Physical Exam General Appearance: no apparent distress Skin: warm Respiratory: bilateral CTA Heart: S1S2 Abdomen: soft, bowel sounds present Extremities: pulses present Neurology: alert Assessment Assessment IMP JOSETTE-RESOLVED CKD STAGE 3 - CR AT BASELINE NOW OF ABOUT 2.0 INFLUENZA A DM II HTN PLAN OK TO D/C FROM RENAL STANDPOINT HAVE ASKED HIM TO KEEP OV WITH ME HAYLIE BUCK MD Nov 07, 2017 12:07
[2017-11-07] MEDS: IV NORMAL SALINE 1000ML BAG 1,000 ML IV SCH (12:40)
--- NOTE | 2017-11-07 12:53 | PDOC ---
PROGRESS NOTES Chief Complaint Chief Complaint Cough, Fever, Chills Influenza A + HTN DM 2 JOSETTE - presumed from Flu A CKD III Anemia History of Present Illness History of Present Illness Pt. seen and examined today, droplet precautions in place Pt. desires discharge, Creatinine decreased today (2.0)- awaiting nephrology input, IVF at 75 cc/hr Care discussed with RN Vitals Vitals Vital Signs Date Time Temp Pulse Resp B/P (MAP) Pulse Ox O2 Delivery O2 Flow Rate FiO2 11/07/17 11:42 Room Air 11/07/17 10:45 97.5 78 18 155/67 (96) 94 97.5 11/07/17 08:00 2.0 Physical Exam Physical Exam Eyes: Sclera anicteric Neuro: [employer] II-XII grossly intact b/l General: Alert, Oriented X3, Cooperative, No acute distress Heart: Regular rate, Normal S1, Normal S2 Lungs: Clear, Other (No wheezes or crackles) Abdomen: Normal bowel sounds, Soft Extremities: No clubbing, No cyanosis Skin: No rashes, No breakdown Labs LABS Laboratory Tests Test 11/06/17 14:25 11/06/17 16:31 11/06/17 20:11 11/07/17 03:10 Erythrocyte Sedimentation Rate 74 (0-15) Iron Level 22 ug/dL (65-175) Total Iron Binding Capacity 323 ug/dL (250-450) Iron Saturation 7 % (15-34) Ferritin 122 ng/mL (26-388) Glucose (Fingerstick) 307 mg/dL (70-99) 296 mg/dL (70-99) White Blood Count 8.1 x10^3/uL (4.0-11.0) Red Blood Count 3.30 x10^6/uL (4.30-5.70) Hemoglobin 9.6 g/dL (13.0-17.5) Hematocrit 30.1 % (39.0-53.0) Mean Corpuscular Volume 91 fL (79-100) Mean Corpuscular Hemoglobin 29 pg (25-35) Mean Corpuscular Hemoglobin Concent 32 g/dL (31-37) Red Cell Distribution Width 14.7 % (11.5-14.5) Platelet Count 185 x10^3/uL (140-400) Neutrophils (%) (Auto) 80 % (31-73) Lymphocytes (%) (Auto) 13 % (24-48) Monocytes (%) (Auto) 7 % (0-9) Eosinophils (%) (Auto) 0 % (0-3) Basophils (%) (Auto) 0 % (0-3) Neutrophils # (Auto) 6.5 x10^3uL (1.8-7.7) Lymphocytes # (Auto) 1.0 x10^3/uL (1.0-4.8) Monocytes # (Auto) 0.6 x10^3/uL (0.0-1.1) Eosinophils # (Auto) 0.0 x10^3/uL (0.0-0.7) Basophils # (Auto) 0.0 x10^3/uL (0.0-0.2) Sodium Level 141 mmol/L (136-145) Potassium Level 4.6 mmol/L (3.5-5.1) Chloride Level 106 mmol/L (98-107) Carbon Dioxide Level 25 mmol/L (21-32) Anion Gap 10 (6-14) Blood Urea Nitrogen 49 mg/dL (8-26) Creatinine 2.0 mg/dL (0.7-1.3) Estimated GFR (Cockcroft-Gault) 32.7 Glucose Level 225 mg/dL (70-99) Calcium Level 8.0 mg/dL (8.5-10.1) Phosphorus Level 3.4 mg/dL (2.6-4.7) Magnesium Level 2.0 mg/dL (1.8-2.4) Albumin 3.0 g/dL (3.4-5.0) Test 11/07/17 07:36 11/07/17 11:26 Glucose (Fingerstick) 161 mg/dL (70-99) 234 mg/dL (70-99) Review of Systems Review of Systems GEN: Denies Fevers, Chills, Sweats CV: Denies CP RESP: Denies shortness of breath GI: Denies N/V Assessment and Plan Assessmemt and Plan Problems Medical Problems: (1) Elevated brain natriuretic peptide (BNP) level Status: Acute (2) Hypomagnesemia Status: Acute (3) Influenza A Status: Acute (4) Rhabdomyolysis Status: Acute Assessment: Cough, Fever, Chills Influenza A + HTN DM 2 JOSETTE - presumed from Flu A CKD III Anemia Plan: D/c home today Nephrology cleared for d/c Rx written for Tamiflu Continue home medications F/u with PCP in 1 week Problems: Comment Review of Relevant I have reviewed the following items elisa (where applicable) has been applied. Labs Laboratory Tests Test 11/05/17 16:25 11/05/17 21:16 11/06/17 07:26 11/06/17 07:40 Glucose (Fingerstick) 367 mg/dL (70-99) 293 mg/dL (70-99) 106 mg/dL (70-99) White Blood Count 10.7 x10^3/uL (4.0-11.0) Red Blood Count 3.72 x10^6/uL (4.30-5.70) Hemoglobin 10.8 g/dL (13.0-17.5) Hematocrit 33.7 % (39.0-53.0) Mean Corpuscular Volume 91 fL (79-100) Mean Corpuscular Hemoglobin 29 pg (25-35) Mean Corpuscular Hemoglobin Concent 32 g/dL (31-37) Red Cell Distribution Width 15.1 % (11.5-14.5) Platelet Count 190 x10^3/uL (140-400) Neutrophils (%) (Auto) 78 % (31-73) Lymphocytes (%) (Auto) 14 % (24-48) Monocytes (%) (Auto) 8 % (0-9) Eosinophils (%) (Auto) 0 % (0-3) Basophils (%) (Auto) 0 % (0-3) Neutrophils # (Auto) 8.3 x10^3uL (1.8-7.7) Lymphocytes # (Auto) 1.5 x10^3/uL (1.0-4.8) Monocytes # (Auto) 0.8 x10^3/uL (0.0-1.1) Eosinophils # (Auto) 0.0 x10^3/uL (0.0-0.7) Basophils # (Auto) 0.0 x10^3/uL (0.0-0.2) Reticulocyte Count (auto) 0.8 % (0.5-2.5) Sodium Level 140 mmol/L (136-145) Potassium Level 4.5 mmol/L (3.5-5.1) Chloride Level 104 mmol/L (98-107) Carbon Dioxide Level 28 mmol/L (21-32) Anion Gap 8 (6-14) Blood Urea Nitrogen 47 mg/dL (8-26) Creatinine 2.6 mg/dL (0.7-1.3) Estimated GFR (Cockcroft-Gault) 24.2 Glucose Level 120 mg/dL (70-99) Calcium Level 8.4 mg/dL (8.5-10.1) Test 11/06/17 10:50 11/06/17 14:25 11/06/17 16:31 11/06/17 20:11 Glucose (Fingerstick) 176 mg/dL (70-99) 307 mg/dL (70-99) 296 mg/dL (70-99) Erythrocyte Sedimentation Rate 74 (0-15) Iron Level 22 ug/dL (65-175) Total Iron Binding Capacity 323 ug/dL (250-450) Iron Saturation 7 % (15-34) Ferritin 122 ng/mL (26-388) Test 11/07/17 03:10 11/07/17 07:36 11/07/17 11:26 White Blood Count 8.1 x10^3/uL (4.0-11.0) Red Blood Count 3.30 x10^6/uL (4.30-5.70) Hemoglobin 9.6 g/dL (13.0-17.5) Hematocrit 30.1 % (39.0-53.0) Mean Corpuscular Volume 91 fL (79-100) Mean Corpuscular Hemoglobin 29 pg (25-35) Mean Corpuscular Hemoglobin Concent 32 g/dL (31-37) Red Cell Distribution Width 14.7 % (11.5-14.5) Platelet Count 185 x10^3/uL (140-400) Neutrophils (%) (Auto) 80 % (31-73) Lymphocytes (%) (Auto) 13 % (24-48) Monocytes (%) (Auto) 7 % (0-9) Eosinophils (%) (Auto) 0 % (0-3) Basophils (%) (Auto) 0 % (0-3) Neutrophils # (Auto) 6.5 x10^3uL (1.8-7.7) Lymphocytes # (Auto) 1.0 x10^3/uL (1.0-4.8) Monocytes # (Auto) 0.6 x10^3/uL (0.0-1.1) Eosinophils # (Auto) 0.0 x10^3/uL (0.0-0.7) Basophils # (Auto) 0.0 x10^3/uL (0.0-0.2) Sodium Level 141 mmol/L (136-145) Potassium Level 4.6 mmol/L (3.5-5.1) Chloride Level 106 mmol/L (98-107) Carbon Dioxide Level 25 mmol/L (21-32) Anion Gap 10 (6-14) Blood Urea Nitrogen 49 mg/dL (8-26) Creatinine 2.0 mg/dL (0.7-1.3) Estimated GFR (Cockcroft-Gault) 32.7 Glucose Level 225 mg/dL (70-99) Calcium Level 8.0 mg/dL (8.5-10.1) Phosphorus Level 3.4 mg/dL (2.6-4.7) Magnesium Level 2.0 mg/dL (1.8-2.4) Albumin 3.0 g/dL (3.4-5.0) Glucose (Fingerstick) 161 mg/dL (70-99) 234 mg/dL (70-99) Laboratory Tests Test 11/06/17 14:25 11/06/17 16:31 11/06/17 20:11 11/07/17 03:10 Erythrocyte Sedimentation Rate 74 (0-15) Iron Level 22 ug/dL (65-175) Total Iron Binding Capacity 323 ug/dL (250-450) Iron Saturation 7 % (15-34) Ferritin 122 ng/mL (26-388) Glucose (Fingerstick) 307 mg/dL (70-99) 296 mg/dL (70-99) White Blood Count 8.1 x10^3/uL (4.0-11.0) Red Blood Count 3.30 x10^6/uL (4.30-5.70) Hemoglobin 9.6 g/dL (13.0-17.5) Hematocrit 30.1 % (39.0-53.0) Mean Corpuscular Volume 91 fL (79-100) Mean Corpuscular Hemoglobin 29 pg (25-35) Mean Corpuscular Hemoglobin Concent 32 g/dL (31-37) Red Cell Distribution Width 14.7 % (11.5-14.5) Platelet Count 185 x10^3/uL (140-400) Neutrophils (%) (Auto) 80 % (31-73) Lymphocytes (%) (Auto) 13 % (24-48) Monocytes (%) (Auto) 7 % (0-9) Eosinophils (%) (Auto) 0 % (0-3) Basophils (%) (Auto) 0 % (0-3) Neutrophils # (Auto) 6.5 x10^3uL (1.8-7.7) Lymphocytes # (Auto) 1.0 x10^3/uL (1.0-4.8) Monocytes # (Auto) 0.6 x10^3/uL (0.0-1.1) Eosinophils # (Auto) 0.0 x10^3/uL (0.0-0.7) Basophils # (Auto) 0.0 x10^3/uL (0.0-0.2) Sodium Level 141 mmol/L (136-145) Potassium Level 4.6 mmol/L (3.5-5.1) Chloride Level 106 mmol/L (98-107) Carbon Dioxide Level 25 mmol/L (21-32) Anion Gap 10 (6-14) Blood Urea Nitrogen 49 mg/dL (8-26) Creatinine 2.0 mg/dL (0.7-1.3) Estimated GFR (Cockcroft-Gault) 32.7 Glucose Level 225 mg/dL (70-99) Calcium Level 8.0 mg/dL (8.5-10.1) Phosphorus Level 3.4 mg/dL (2.6-4.7) Magnesium Level 2.0 mg/dL (1.8-2.4) Albumin 3.0 g/dL (3.4-5.0) Test 11/07/17 07:36 11/07/17 11:26 Glucose (Fingerstick) 161 mg/dL (70-99) 234 mg/dL (70-99) Microbiology 11/04/17 Blood Culture - Preliminary, Resulted NO GROWTH AFTER 2 DAYS Medications Current Medications Albuterol/ Ipratropium (Duoneb) 3 ml 1X ONCE NEB Last administered on t 17:34; Start 11/04/17 at 17:30; Stop 11/04/17 at 17:31; Status DC Sodium Chloride 1,000 ml @ 1,000 mls/hr 1X ONCE IV Last administered on 17:42; Start 11/04/17 at 17:30; Stop 11/04/17 at 18:29; Status DC Methylprednisolone Sodium Succinate (SOLU-Medrol 125MG VIAL) 125 mg 1X ONCE IV Last administered on 11/04/17 17:42; Start 11/04/17 at 17:30; Stop 11/04/17 at 17:31; Status DC Oseltamivir Phosphate (Tamiflu) 75 mg 1X STAT PO Last administered on 18:24; Start 11/04/17 at 18:11; Stop 11/04/17 at 18:18; Status DC Magnesium Oxide (Magnesium Oxide) 800 mg 1X STAT PO Last administered on 20:35; Start 11/04/17 at 18:32; Stop 11/04/17 at 18:35; Status DC Acetaminophen (Tylenol) 1,000 mg 1X ONCE PO Last administered on 11/04/17 18: 40; Start 11/04/17 at 18:45; Stop 11/04/17 at 18:46; Status DC Ondansetron HCl (Zofran) 4 mg PRN Q8HRS PRN IV NAUSEA/VOMITING; Start 11/04/17 at 18:45; Stop 11/05/17 at 18:44; Status DC Fentanyl Citrate (Fentanyl 2ml Vial) 50 mcg PRN Q2HR PRN IV PAIN; Start at 18:45; Stop 11/05/17 at 18:44; Status DC Acetaminophen (Tylenol) 650 mg PRN Q6HRS PRN PO Headaches, Temp > 101.5F Last administered on 11/06/17 08:31; Start 11/04/17 at 20:45 Heparin Sodium (Porcine) (Heparin Sq) 5,000 unit Q8HRS SQ Last administered on 11/07/17 05:54; Start 11/04/17 at 22:00 Oseltamivir Phosphate (Tamiflu) 30 mg BID PO Last administered on 11/07/17 08: 30; Start 11/04/17 at 21:00; Stop 11/09/17 at 20:59 Albuterol/ Ipratropium (Duoneb) 3 ml RTQID NEB Last administered on 11/07/17 11:41; Start 11/05/17 at 08:00 Methylprednisolone Sodium Succinate (SOLU-Medrol 40MG VIAL) 40 mg Q24H IV Last administered on 11/07/17 08:32; Start 11/05/17 at 09:00 Insulin Aspart (NovoLOG) 0-5 UNITS TIDWMEALS SQ Last administered on 11/07/17 12:11; Start 11/05/17 at 08:00 Dextrose (Dextrose 50%-Water Syringe) 12.5 gm PRN Q15MIN PRN IV SEE COMMENTS; Start 11/04/17 at 20:45 Hydralazine HCl (Apresoline Inj) 10 mg PRN Q4HRS PRN IVP ELEVATED BP, SEE COMMENTS; Start 11/04/17 at 21:00 Pantoprazole Sodium (Protonix) 40 mg DAILYAC PO Last administered on 11/07/17 08:30; Start 11/05/17 at 07:30 Doxazosin Mesylate (Cardura) 4 mg QHS PO Last administered on 11/06/17 21:50; Start 11/04/17 at 21:00 Doxazosin Mesylate (Cardura) 4 mg DAILY PO ; Start 11/05/17 at 11:30; Status Cancel Metformin HCl (Glucophage) 1,000 mg BIDWMEALS PO Last administered on 08:31; Start 11/05/17 at 17:00; Stop 11/06/17 at 14:46; Status DC Simvastatin (Zocor) 40 mg DAILY PO Last administered on 11/07/17 08:30; Start 11/05/17 at 11:30 Lisinopril (Prinivil) 20 mg DAILY PO Last administered on 11/07/17 08:31; Start 11/05/17 at 11:30 Glipizide (Glucotrol) 10 mg BIDBFRMEAL PO Last administered on 11/07/17 08:30 ; Start 11/05/17 at 16:30 Pioglitazone HCl (Actos) 45 mg DAILY PO Last administered on 11/07/17 08:31; Start 11/05/17 at 12:00 Linagliptin (Tradjenta) 5 mg DAILY PO Last administered on 11/07/17 08:31; Start 11/05/17 at 12:00 Insulin Aspart (NovoLOG) 10 units 1X ONCE SQ Last administered on 11/05/17 16 :43; Start 11/05/17 at 16:45; Stop 11/05/17 at 16:46; Status DC Throat Lozenges (Chloraseptic) 1 spray PRN Q2HR PRN PO SORE THROAT Last administered on 11/07/17 08:48; Start 11/05/17 at 18:15 Sodium Chloride 1,000 ml @ 75 mls/hr [id number] IV Last administered on 21:52; Start 11/06/17 at 10:00 Magnesium Sulfate/ Dextrose 50 ml @ 25 mls/hr PRN DAILY PRN IV for Mag < 1.7 on am labs; Start 11/06/17 at 13:00 Insulin Detemir (Levemir) 15 units QHS SQ Last administered on 11/06/17 22:30 ; Start 11/06/17 at 22:30 Active Scripts Active Reported Januvia (Sitagliptin Phosphate) 100 Mg Tablet 1 Tab PO DAILY Simvastatin 40 Mg Tablet 1 Tab PO DAILY Metformin Hcl 1,000 Mg Tablet 1,000 Mg PO BIDWMEALS Pioglitazone Hcl 45 Mg Tablet 45 Mg PO DAILY Doxazosin Mesylate 4 Mg Tablet 4 Mg PO DAILY Glipizide Er (Glipizide) 10 Mg Tab.er.24 10 Mg PO BID Benazepril Hcl 20 Mg Tablet 20 Mg PO DAILY Vitals/I & O Vital Sign - Last 24 Hours 11/06/17 11/06/17 11/06/17 11/06/17 14:51 15:00 19:00 19:45 Temp 97.9 97.9 97.9 97.9 Pulse 87 90 Resp 20 20 B/P (MAP) 127/67 (87) 151/55 (87) Pulse Ox 96 91 O2 Delivery Room Air Room Air Room Air Room Air 11/06/17 11/06/17 11/06/17 11/07/17 20:21 21:50 23:00 03:00 Temp 97.1 97.1 97.1 97.1 Pulse 87 87 78 Resp 20 20 B/P (MAP) 127/67 146/60 (88) 149/63 (91) Pulse Ox 94 95 O2 Delivery Room Air Room Air Room Air 11/07/17 11/07/17 11/07/17 11/07/17 07:35 07:48 08:00 08:31 Temp 97.7 97.7 Pulse 74 78 Resp 18 B/P (MAP) 147/70 (95) 149/63 Pulse Ox 95 95 O2 Delivery Room Air Room Air Room Air O2 Flow Rate 2.0 11/07/17 11/07/17 10:45 11:42 Temp 97.5 97.5 Pulse 78 Resp 18 B/P (MAP) 155/67 (96) Pulse Ox 94 O2 Delivery Room Air Room Air Intake and Output 11/06/17 11/06/17 11/07/17 15:00 23:00 07:00 Intake Total 735 ml 420 ml Output Total 540 ml 280 ml Balance -540 ml 455 ml 420 ml BROOKE LINTON III DO Nov 07, 2017 12:53
[2017-11-07 16:14] LABS: UR PROTEIN RD 53.6 mg/dL (Not Estab.)
== END 2017-11-07 13:30 | disposition home or self-care (01) | DRG 193 ==
LOC: ER 17:05 → 5 NORTH 18:12
PROVIDERS: ADMIT Internal Medicine; ATTEND Internal Medicine
DX: J10.1 Influenza due to other identified influenza virus with other respiratory manifestations (principal); J96.01 Acute respiratory failure with hypoxia; N17.9 Acute kidney failure, unspecified; M62.82 Rhabdomyolysis; E11.22 Type 2 diabetes mellitus with diabetic chronic kidney disease; E83.42 Hypomagnesemia; W19.XXXA Unspecified fall, initial encounter; D64.9 Anemia, unspecified; I12.9 Hypertensive chronic kidney disease with stage 1 through stage 4 chronic kidney disease, or unspecified chronic kidney disease; I25.10 Atherosclerotic heart disease of native coronary artery without angina pectoris; J45.909 Unspecified asthma, uncomplicated; Z96.1 Presence of intraocular lens; N18.3 Chronic kidney disease, stage 3 (moderate); Y93.89 Activity, other specified; Y92.89 Other specified places as the place of occurrence of the external cause; Y99.8 Other external cause status; Z85.46 Personal history of malignant neoplasm of prostate; Z83.3 Family history of diabetes mellitus; Z79.899 Other long term (current) drug therapy
CPT/HCPCS: 36415; 70450; 71010; 80048; 80053; 80069; 81001; 82550; 82570; 82728; 82962; 83540; 83550; 83605; 83690; 83735; 83880; 84156; 84484; 85007; 85025; 85045; 85610; 85651; 85730; 87040; 87804; 93005; 94250; 94640; 94760; J1815; J2920; J2930; J7030; J7620

== ENCOUNTER 2020-10-05 15:14 | Inpatient (IN) | payer OTHER, MEDICARE ==
[~2020-10-05] VITALS: Ht 165.1 cm; Wt 109.9 kg
[~2020-10-05 15:14] MED LIST changes: -BENA20TA2 PO; +BENA20TA4 PO; -GLIP-112 PO; +GLIP10TA24 PO; -METF-620 PO; +METF10007 PO; -PIOG45TA3 PO; +PIOG45TA62 PO; +SIMV40TA18 PO; +SITA100T PO
[2020-10-05 16:03] LABS: BASO % 0 % (0-3); EOS % 1 % (0-3); HEMATOCRIT 31.9 % (39.0-53.0); HEMOGLOBIN 10.4 g/dL (13.0-17.5); LYMPH # 0.9 x10^3/uL (1.0-4.8); LYMPH % 14 % (24-48); MEAN CORPUSCULAR HEMOGLOBIN 29 pg (25-35); MEAN CORPUSCULAR HGB CONC 33 g/dL (31-37); MEAN CORPUSCULAR VOLUME 89 fL (79-100); MONO # 0.7 x10^3/uL (0.0-1.1); MONO % 12 % (0-9); NEUT # 4.6 x10^3/uL (1.8-7.7); NEUT % 74 % (31-73); PLATELET COUNT 227 x10^3/uL (140-400); RED CELL DISTRIBUTION WIDTH 14.2 % (11.5-14.5); WHITE BLOOD COUNT 6.3 x10^3/uL (4.0-11.0)
[2020-10-05 16:19] LABS: CALCIUM 7.6 mg/dL (8.5-10.1); CREATININE 2.3 mg/dL (0.7-1.3); GFR 27.6
[2020-10-05 16:25] LABS: ALBUMIN 2.7 g/dL (3.4-5.0); ALBUMIN/GLOBULIN RATIO 0.6 (1.0-1.7); C-REACTIVE PROTEIN 116.3 mg/L (0-3.3); TOTAL BILIRUBIN 0.2 mg/dL (0.2-1.0); TOTAL PROTEIN 7.1 g/dL (6.4-8.2)
--- NOTE | 2020-10-05 16:38 | RAD ---
EXAM: Chest, single view. HISTORY: Cough. COMPARISON: 11/04/2017 FINDINGS: A frontal view the chest is obtained. There is stable mild eventration of the right hemidiaphragm. There is mild diffuse increased interstitial opacity likely due to relative decreased lung volumes. There is superimposed linear atelectasis or scarring within the right mid thorax. The heart is normal in size. No consolidation, pleural effusion or pneumothorax is seen. IMPRESSION: Mild diffuse increased interstitial opacity likely due to relative decreased lung volumes with associated vascular crowding and atelectasis. No consolidated infiltrate is seen. Electronically signed by: Shaila Merritt MD (10/05/2020 4:35 PM) [id number]
[2020-10-05] MEDS ORDERED: DEXAMETHASONE SOD PHOS 4 MG/ML VIAL IVP ONE (17:00)
--- NOTE | 2020-10-05 18:07 | ED.ADGEN ---
Past Medical History Past Medical History: Anemia, Asthma, Bronchitis, CAD, Cancer, Diabetes-Type II, Hypertension, Renal Disease, Other Additional Past Medical Histor: PROSTATE CA, Past Surgical History: Other Additional Past Surgical Histo: CATARACT SX, L THUMB Smoking Status: Never Smoker Alcohol Use: None Drug Use: None General Adult EDM: Chief Complaint: SHORTNESS OF BREATH HPI: HPI: Patient is a 80-year-old male with past medical history of diabetes who presents to the emergency room after being sent here from urgent care for symptoms concerning of coronavirus 19. He has been having body aches, fever, cough, shortness of breath, fevers for the last week. He states initially it started with mild symptoms and he started developing the fever over the last day or so. He was seen at the urgent care and was found to be hypoxic particularly with ambulation. He is not sure take anything for symptoms. They did not give him anything at the urgent care Review of Systems: Review of Systems: Complete ROS is negative unless otherwise documented in HPI Current Medications: Current Medications Medications (Trade) Dose Ordered Sig/Alicia Start Time Stop Time Status Last Admin Dose Admin Dexamethasone Sodium Phosphate (Decadron) 10 mg 1X ONCE 10/05/20 17:00 10/05/20 17:01 DC 10/05/20 17:57 10 MG Allergies: Allergies: Allergies Coded Allergies Type Severity Reaction Last Updated Verified No Known Drug Allergies 10/03/15 No Physical Exam: PE: General: Awake, alert, NAD. Well Nourished, well hydrated. Cooperative HEENT: Atraumatic, EOMI, PERRL, airway patent, moist oral mucosa Neck: Supple, trachea midline Respiratory: Decreased breath sounds bilaterally with mild crackles, tachypnea CV: RRR, no murmur, cap refill <2 GI: Soft, nondistended, nontender, no masses MSK: No obvious deformities Skin: Warm, dry, intact Neuro: A&O x3, speech NL, sensory and motor grossly intact, no focal deficits Psych: Normal affect, normal mood, not suicidal or homicidal Current Patient Data: Labs: Laboratory Tests Test 10/05/20 15:50 10/05/20 16:54 White Blood Count 6.3 x10^3/uL (4.0-11.0) Red Blood Count 3.60 x10^6/uL (4.30-5.70) L Hemoglobin 10.4 g/dL (13.0-17.5) L Hematocrit 31.9 % (39.0-53.0) L Mean Corpuscular Volume 89 fL (79-100) Mean Corpuscular Hemoglobin 29 pg (25-35) Mean Corpuscular Hemoglobin Concent 33 g/dL (31-37) Red Cell Distribution Width 14.2 % (11.5-14.5) Platelet Count 227 x10^3/uL (140-400) Neutrophils (%) (Auto) 74 % (31-73) H Lymphocytes (%) (Auto) 14 % (24-48) L Monocytes (%) (Auto) 12 % (0-9) H Eosinophils (%) (Auto) 1 % (0-3) Basophils (%) (Auto) 0 % (0-3) Neutrophils # (Auto) 4.6 x10^3/uL (1.8-7.7) Lymphocytes # (Auto) 0.9 x10^3/uL (1.0-4.8) L Monocytes # (Auto) 0.7 x10^3/uL (0.0-1.1) Eosinophils # (Auto) 0.0 x10^3/uL (0.0-0.7) Basophils # (Auto) 0.0 x10^3/uL (0.0-0.2) Sodium Level 137 mmol/L (136-145) Potassium Level 5.0 mmol/L (3.5-5.1) Chloride Level 103 mmol/L (98-107) Carbon Dioxide Level 23 mmol/L (21-32) Anion Gap 11 (6-14) Blood Urea Nitrogen 28 mg/dL (8-26) H Creatinine 2.3 mg/dL (0.7-1.3) H Estimated GFR (Cockcroft-Gault) 27.6 BUN/Creatinine Ratio 12 (6-20) Glucose Level 179 mg/dL (70-99) H Calcium Level 7.6 mg/dL (8.5-10.1) L Total Bilirubin 0.2 mg/dL (0.2-1.0) Aspartate Amino Transferase (AST) 33 U/L (15-37) Alanine Aminotransferase (ALT) 23 U/L (16-63) Alkaline Phosphatase 60 U/L (46-116) Lactate Dehydrogenase 342 U/L (85-227) H Creatine Kinase 132 U/L (39-308) Troponin I Quantitative 0.048 ng/mL (0.000-0.055) C-Reactive Protein, Quantitative 116.3 mg/L (0-3.3) H GN-Zrd-P-Type Natriuretic Peptide 2491 pg/mL (0-449) H Total Protein 7.1 g/dL (6.4-8.2) Albumin 2.7 g/dL (3.4-5.0) L Albumin/Globulin Ratio 0.6 (1.0-1.7) L D-Dimer (Delma) 1.70 ug/mlFEU (0.00-0.50) H Laboratory Tests 10/05/20 15:50 Laboratory Tests 10/05/20 15:50 Vital Signs: Vital Signs Date Time Temp Pulse Resp B/P (MAP) Pulse Ox O2 Delivery O2 Flow Rate FiO2 10/05/20 17:20 100.5 100.5 10/05/20 16:09 94 18 148/67 (94) 96 Nasal Cannula 2.0 EKG: EKG: [] Heart Score: Risk Factors: Risk Factors: DM, Current or recent (<one month) smoker, HTN, HLP, family history of CAD, obesity. Risk Scores: Score 0 - 3: 2.5% MACE over next 6 weeks - Discharge Home Score 4 - 6: 20.3% MACE over next 6 weeks - Admit for Clinical Observation Score 7 - 10: 72.7% MACE over next 6 weeks - Early Invasive Strategies Radiology/Procedures: Radiology/Procedures: [] Course & Med Decision Making: Course & Med Decision Making Pertinent Labs and Imaging studies reviewed. (See chart for details) Patient is a 80-year-old male who presents to the emergency room with cough, hypoxia, shortness of breath. At this time there is concern for the novel coronavirus 19. Patient's risk factors include diabetes, obesity. Risk st ratifying work-up was ordered including chest x-ray, d-dimer, CPK, CRP, LDH, troponin, ferritin, CBC, CMP. At this time, patients labs, vitals, and exam are significant for hypoxia, acute kidney injury. Due to patient's risk and clinical picture, they will need to be admitted at this time. IVFs will be limited due to concern for fluid overload in COVID-19 patients. Patient will be given empiric antibiotics due to infiltrates and risk of co-bacterial infection. Further treatment will be dictated by the inpatient team. Henry Disclaimer: Henry Disclaimer: This electronic medical record was generated, in whole or in part, using a voice recognition dictation system. Departure Departure Impression: Primary Impression: Suspected 2019-nCoV infection Additional Impressions: JOSETTE (acute kidney injury) Hypoxia Disposition: 09 ADMITTED INPT THIS HOSP Condition: IMPROVED Referrals: EMI ARNETT (PCP) Problem Qualifiers PEDRO CAMPBELL MD Oct 05, 2020 18:07
[2020-10-05 21:05] VITALS: BP 146/67
[2020-10-05 23:00] VITALS: BP 155/70
--- NOTE | 2020-10-05 23:27 | HP ---
ADMIT DATE: 10/05/2020 CHIEF COMPLAINT: Shortness of breath. HISTORY OF PRESENT ILLNESS: The patient is a pleasant 80-year-old male who presented to the ER with shortness of breath, rates it at 6/10, it is worse with moving, better with sitting still. While in the ER, he was noted to be a little anemic with a hemoglobin of 10.4. Chest x-ray showing some possible atypical infection. He has also in renal failure with creatinine of 2.3 and a BUN of 28. I discussed the case with ER physician. We are going to admit the patient and rule out COVID-19 and give him some IV fluids. PAST MEDICAL HISTORY: Anemia, asthma, bronchitis, CAD, diabetes, hypertension, hyperlipidemia, renal disease, prostate cancer, cataract surgery, left thumb surgery. ALLERGIES: None. FAMILY HISTORY: Diabetes. SOCIAL HISTORY: Does not drink, smoke or take drugs. He is retired. MEDICATIONS: Reviewed, please refer to the MRAD. REVIEW OF SYSTEMS: GENERAL: No history of weight change, weakness or fevers. SKIN: No bruising, hair changes or rashes. EYES: No blurred, double or loss of vision. NOSE AND THROAT: No history of nosebleeds, hoarseness or sore throat. HEART: No history of palpitations, chest pain or shortness of breath on exertion. PULMONARY: He complains of shortness of breath. GASTROINTESTINAL: Denies changes in appetite, nausea, vomiting, diarrhea or constipation. GENITOURINARY: No history of frequency, urgency, hesitancy or nocturia. NEUROLOGIC: Denies history of numbness, tingling, tremor or weakness. PSYCHIATRIC: No history of panic, anxiety or depression. ENDOCRINE: No history of heat or cold intolerance, polyuria or polydipsia. EXTREMITIES: Denies muscle weakness, joint pain, pain on walking or stiffness. PHYSICAL EXAMINATION: VITALS: Within normal limits and are stable. GENERAL: No apparent distress. Alert and oriented. HEENT: Normal cephalic atraumatic, external auditory canals are patent EYES: Extraocular muscles are intact, pupils are equally round and reactive to light and accommodation MUSCULOSKELETAL: Well developed, well nourished, good range of motion ENDOCRINE: No thyromegaly was palpated LYMPHATICS: No cervical chain or axillary nodes were noted HEMATOPOIETIC: No bruising NECK: Supple, no JVD, no thyromegaly was noted. PULMONARY: He has crackles bilaterally. HEART: RRR, S1, S2 present. Peripheral pulses intact, no obvious murmurs were noted. ABDOMEN: Soft, nontender. Positive bowel sounds no organomegaly, normal bowel sounds. EXTREMITIES: Without any cyanosis, clubbing, or edema. Pedal pulses intact, Homans sign is negative. NEUROLOGIC: Normal speech, normal tone. A & O x3, moves all extremities, no obvious focal deficits. PSYCHIATRIC: Normal affect, normal mood. Stable. SKIN: No ulcerations or rashes, good skin turgor, no jaundice. VASCULAR: Good capillary refill, neurovascular bundle appears to be intact. RADIOLOGICAL DATA: Chest x-ray shows possible pneumonia. ASSESSMENT AND PLAN: Shortness of breath and atypical chest x-ray, rule out COVID-19 with an incidental finding of acute on chronic renal failure. The patient will be admitted. We will give IV fluids. Respiratory isolation, swab him for COVID-19. Home meds, DVT prophylaxis. Full code. BROOKE LINTON DO DR: SANDRA/santa JOB#: [id number] / [id number]
[2020-10-06 03:00] VITALS: BP 161/72
[2020-10-06] MEDS ORDERED: MORPHINE SULFATE 4 MG/ML VIAL. IV PRN (04:00)
[2020-10-06 08:00] VITALS: BP 148/76
[2020-10-06] MEDS ORDERED: SENNOSIDES 8.6 MG TABLET PO PRN (09:45)
[2020-10-06] MEDS ORDERED: ONDANSETRON PF 4 MG/2 ML VIAL. IVP PRN (09:45)
[2020-10-06] MEDS ORDERED: DEXTROSE 50% 25 GM / 50ML DISP.SYRIN. IV PRN (09:45)
[2020-10-06] MEDS ORDERED: DOCUSATE SODIUM 100 MG CAPSULE. PO PRN (09:45)
[2020-10-06] MEDS ORDERED: ENOXAPARIN 40 MG/0.4 ML SYRINGE. SQ SCH (10:00)
[2020-10-06 11:00] VITALS: BP 150/68
[2020-10-06] MEDS ORDERED: INSULIN LISPRO 300 UNITS/3 ML VIAL. SQ SCH (12:00)
[2020-10-06 12:03] LABS: CALCIUM 7.8 mg/dL (8.5-10.1); CREATININE 2.3 mg/dL (0.7-1.3); GFR 27.6; POTASSIUM 5.3 mmol/L (3.5-5.1)
[2020-10-06] MEDS ORDERED: THIAMINE INJ 100 MG in IV DEXTROSE 5% 50 ML IV SCH (14:00)
[2020-10-06] MEDS ORDERED: ASCORBIC ACID 500 MG TABLET PO SCH (14:00)
[2020-10-06] MEDS ORDERED: methylPREDNISolone SOD SUCC PF 40 MG/ML VIAL. IV SCH (14:00)
[2020-10-06 15:00] VITALS: BP 156/68
--- NOTE | 2020-10-06 15:12 | PDOC ---
[facility] PROGRESS NOTE Date of Service DOS: DATE: 10/06/20 TIME: 15:04 Chief Complaint Chief Complaint Acute hypoxic respiratory distress Investigation for Covid Anemia of chronic disease JOSETTE due to vasomotor nephropathy Hyperkalemia Elevated D-dimer Morbid obesity O2 supplementation to titrate greater than 92% Combivent inhaler as needed Strict I's and O's Avoid nephrotoxic agents Pending nephrology evaluation Heparin for DVT prophylaxis ADA diet Full code Discussed with RN and SW Disposition inpatient care as above Surrogate decision maker is the History of Present Illness History of Present Illness 10/06/2020 No acute events overnight. Patient saturating 96% on 2 L nasal cannula. Patient able to speak in full sentences during our interview. Patient's chart, labs, images were reviewed and discussed with RN 80-year-old male who presented to the ER with shortness of breath, rates it at 6/10, it is worse with moving, better with sitting still. While in the ER, he was noted to be a little anemic with a hemoglobin of 10.4. Chest x-ray showing some possible atypical infection. He has also in renal failure with creatinine of 2.3 and a BUN of 28. Vitals/I&O Vitals/I&O: Vital Signs Date Time Temp Pulse Resp B/P (MAP) Pulse Ox O2 Delivery O2 Flow Rate FiO2 10/06/20 11:00 98.6 73 20 150/68 (95) 98 Nasal Cannula 2.0 98.6 I & O 10/05/20 10/05/20 10/06/20 15:00 23:00 07:00 Intake Total 50 ml Balance 50 ml Physical Exam Lungs: Clear, Other Labs Labs: Laboratory Tests Test 10/05/20 15:50 10/05/20 16:54 10/05/20 21:54 10/06/20 08:10 White Blood Count 6.3 x10^3/uL (4.0-11.0) Red Blood Count 3.60 x10^6/uL (4.30-5.70) Hemoglobin 10.4 g/dL (13.0-17.5) Hematocrit 31.9 % (39.0-53.0) Mean Corpuscular Volume 89 fL (79-100) Mean Corpuscular Hemoglobin 29 pg (25-35) Mean Corpuscular Hemoglobin Concent 33 g/dL (31-37) Red Cell Distribution Width 14.2 % (11.5-14.5) Platelet Count 227 x10^3/uL (140-400) Neutrophils (%) (Auto) 74 % (31-73) Lymphocytes (%) (Auto) 14 % (24-48) Monocytes (%) (Auto) 12 % (0-9) Eosinophils (%) (Auto) 1 % (0-3) Basophils (%) (Auto) 0 % (0-3) Neutrophils # (Auto) 4.6 x10^3/uL (1.8-7.7) Lymphocytes # (Auto) 0.9 x10^3/uL (1.0-4.8) Monocytes # (Auto) 0.7 x10^3/uL (0.0-1.1) Eosinophils # (Auto) 0.0 x10^3/uL (0.0-0.7) Basophils # (Auto) 0.0 x10^3/uL (0.0-0.2) Sodium Level 137 mmol/L (136-145) Potassium Level 5.0 mmol/L (3.5-5.1) Chloride Level 103 mmol/L (98-107) Carbon Dioxide Level 23 mmol/L (21-32) Anion Gap 11 (6-14) Blood Urea Nitrogen 28 mg/dL (8-26) Creatinine 2.3 mg/dL (0.7-1.3) Estimated GFR (Cockcroft-Gault) 27.6 BUN/Creatinine Ratio 12 (6-20) Glucose Level 179 mg/dL (70-99) Calcium Level 7.6 mg/dL (8.5-10.1) Total Bilirubin 0.2 mg/dL (0.2-1.0) Aspartate Amino Transf (AST/SGOT) 33 U/L (15-37) Alanine Aminotransferase (ALT/SGPT) 23 U/L (16-63) Alkaline Phosphatase 60 U/L (46-116) Lactate Dehydrogenase 342 U/L (85-227) Creatine Kinase 132 U/L (39-308) Troponin I Quantitative 0.048 ng/mL (0.000-0.055) C-Reactive Protein, Quantitative 116.3 mg/L (0-3.3) AV-Csb-Z-Type Natriuretic Peptide 2491 pg/mL (0-449) Total Protein 7.1 g/dL (6.4-8.2) Albumin 2.7 g/dL (3.4-5.0) Albumin/Globulin Ratio 0.6 (1.0-1.7) D-Dimer (Delma) 1.70 ug/mlFEU (0.00-0.50) Glucose (Fingerstick) 152 mg/dL (70-99) 258 mg/dL (70-99) Test 10/06/20 10:42 10/06/20 11:32 D-Dimer (Delma) 1.85 ug/mlFEU (0.00-0.50) Sodium Level 137 mmol/L (136-145) Potassium Level 5.3 mmol/L (3.5-5.1) Chloride Level 104 mmol/L (98-107) Carbon Dioxide Level 24 mmol/L (21-32) Anion Gap 9 (6-14) Blood Urea Nitrogen 40 mg/dL (8-26) Creatinine 2.3 mg/dL (0.7-1.3) Estimated GFR (Cockcroft-Gault) 27.6 Glucose Level 263 mg/dL (70-99) Calcium Level 7.8 mg/dL (8.5-10.1) Magnesium Level 2.0 mg/dL (1.8-2.4) C-Reactive Protein, Quantitative 102.4 mg/L (0-3.3) Procalcitonin < 0.10 ng/mL (0.00-0.10) Glucose (Fingerstick) 254 mg/dL (70-99) Assessment and Plan Assessmemt and Plan Problems Medical Problems: (1) JOSETTE (acute kidney injury) Status: Acute (2) Hypoxia Status: Acute (3) Suspected 2019-nCoV infection Status: Acute Comment Review of Relevant I have reviewed the following items elisa (where applicable) has been applied. Medications: Current Medications Medications (Trade) Dose Ordered Sig/Alicia Route PRN Reason Start Time Stop Time Status Last Admin Dose Admin Dexamethasone Sodium Phosphate (Decadron) 10 mg 1X ONCE IVP 10/05/20 17:00 10/06/20 09:28 DC 10/05/20 17:57 Insulin Human Lispro (HumaLOG) 0-7 UNITS TIDWMEALS SQ 10/06/20 12:00 10/06/20 13:27 DC 10/06/20 12:32 Enoxaparin Sodium (Lovenox 40mg Syringe) 40 mg Q24H SQ 10/06/20 10:00 10/06/20 11:52 Justifications for Admission Other Justification MILLER ROMERO MD Oct 06, 2020 15:12
[2020-10-06] MEDS: ASCORBIC ACID 500 MG TABLET PO SCH ×2 (16:56→23:07)
[2020-10-06] MEDS: THIAMINE INJ 100 MG in IV DEXTROSE 5% 50 ML IV SCH ×2 (16:56→23:07)
[2020-10-06 17:04] LABS: LACTATE DEHYDROGENASE 360 U/L (85-227)
[2020-10-06] MEDS: INSULIN LISPRO 300 UNITS/3 ML VIAL. SQ SCH (18:17)
--- NOTE | 2020-10-06 18:30 | NUR ---
pATIENT GAVE PERMISSION FOR ME TO GIVE [facility] UPDATES AND RESULTS. PATIENT WAS SEEN IN THE URGENT CARE YESTERDAY BY DR CARVALHO. DR CARVALHO CALLED [facility] THIS MORNING WITH CONCERNS FOR THE PT AND TO STATE THAT THE PT HAD A POSITIVE COVID TEST FROM THE URGENT CARE CLINIC. DR CARVALHO FAXED THE NOTES AND RESULTS. DR ROMERO GIVEN INFORMATION THIS SHIFT.
[2020-10-06 19:10] VITALS: BP 149/70
[2020-10-06] MEDS ORDERED: DEXAMETHASONE SOD PHOS 4 MG/ML VIAL IVP SCH (21:00)
[2020-10-06] MEDS ORDERED: SIMVASTATIN 40 MG TABLET. PO SCH (21:00)
[2020-10-06 23:00] VITALS: BP 156/70
[2020-10-06 23:54] LABS: INFLUENZA A PATIENT NEGATIVE (NEGATIVE); INFLUENZA B PATIENT NEGATIVE (NEGATIVE)
[2020-10-07 03:40] VITALS: BP 153/67
[2020-10-07 04:15] LABS: CALCIUM 7.6 mg/dL (8.5-10.1); CREATININE 2.2 mg/dL (0.7-1.3); GFR 29.1; MAGNESIUM 2.2 mg/dL (1.8-2.4); PHOSPHORUS 3.5 mg/dL (2.6-4.7); POTASSIUM 5.2 mmol/L (3.5-5.1)
[2020-10-07 05:01] LABS: BASO % 0 % (0-3); EOS % 0 % (0-3); HEMATOCRIT 30.1 % (39.0-53.0); HEMOGLOBIN 9.8 g/dL (13.0-17.5); LYMPH % 9 % (24-48); MEAN CORPUSCULAR HEMOGLOBIN 29 pg (25-35); MEAN CORPUSCULAR HGB CONC 32 g/dL (31-37); MEAN CORPUSCULAR VOLUME 89 fL (79-100); MONO # 1.2 x10^3/uL (0.0-1.1); MONO % 11 % (0-9); NEUT % 79 % (31-73); PLATELET COUNT 284 x10^3/uL (140-400); RED BLOOD COUNT 3.38 x10^6/uL (4.30-5.70); RED CELL DISTRIBUTION WIDTH 14.2 % (11.5-14.5); WHITE BLOOD COUNT 10.1 x10^3/uL (4.0-11.0)
[2020-10-07] MEDS: THIAMINE INJ 100 MG in IV DEXTROSE 5% 50 ML IV SCH ×2 (05:41→14:00)
[2020-10-07 07:16] VITALS: BP 150/69
[2020-10-07 07:41] LABS: % BANDS 5 % (0-9); % LYMPHS 14 % (24-48); % METAS 1 % (0-0); % MONOS 5 % (0-10); % MYELOS 2 % (0-0); % SEGS 73 % (35-66); PLT ESTIMATE ADEQUATE (ADEQUATE)
[2020-10-07] MEDS ORDERED: amLODIPine BESYLATE 10 MG TABLET PO SCH (09:00)
[2020-10-07] MEDS ORDERED: DOXAZOSIN MESYLATE 4 MG TABLET. PO SCH (09:00)
[2020-10-07] MEDS ORDERED: HEPARIN for SUB-Q USE 5,000 UNIT/ML VIAL. SQ SCH (09:00)
[2020-10-07] MEDS ORDERED: LISINOPRIL 20 MG TABLET PO SCH (09:00)
[2020-10-07] MEDS: INSULIN LISPRO 300 UNITS/3 ML VIAL. SQ SCH ×3 (09:04→17:00)
[2020-10-07] MEDS: ASCORBIC ACID 500 MG TABLET PO SCH ×2 (09:06→12:51)
[2020-10-07 11:11] VITALS: BP 133/65
--- NOTE | 2020-10-07 12:26 | DISCH ---
DISCHARGE INSTRUCTIONS Condition on Discharge Condition on Discharge: Stable (Please follow closely with Dr. Alexandre with nephrology. You will need an appointment NA[facility] for your acute renal failure) Activity After Discharge Activity Instructions for Disc: Resume previous activity Bathing Instructions: Shower-keep dressing dry Lifting Instructions after Dis: No heavy lifting, No pulling or pushing, Do not lift >10 pounds, Add. restrict see below Driving Instructions after Dis: Do not drive today Weight Bearing Status after Di: As tolerated Diet after Discharge Diet after Discharge: Diabetic No Calorie Level Diet Texture: Regular Contacting the DRAlan after DC Call your doctor for: If your condition worsens Follow-Up Follow up with: PCP within 2 weeks of discharge Follow Up With: Nephrology this week MILLER GOMEZ MD Oct 07, 2020 12:26
[2020-10-07 15:27] VITALS: BP 128/62
--- NOTE | 2020-10-08 16:18 | EKG ---
[facility] [address] [place] [address] Test Date: 2020-10-05 Test Time: 15:37:17 Pat Name: AUGUSTO CUNHA Department: Room: Gender: M Prepress Specialist: : 1940 Requested By: PEDRO CAMPBELL Order Number: [id number] Reading MD: Measurements Intervals [place] Rate: 100 P: 31 [place]: 130 QRS: -25 QRSD: 92 T: -30 QT: 300 QTc: 390 Interpretive Statements SINUS RHYTHM LEFTWARD AXIS T ABNORMALITY IN ANTERIOR LEADS INFEROLATERAL LEADS ABNORMAL ECG RI6.02 No previous ECG available for comparison
--- NOTE | 2020-10-08 22:52 | PDOC3 ---
[facility]-Discharge Summary Date of Admission: Date of Admission: Oct 06, 2020 Date of Discharge: Date of Discharge: Oct 07, 2020 Discharge Diagnosis: Discharge Diagnosis: Acute hypoxic respiratory distress Investigation for Covid Anemia of chronic disease JOSETTE due to vasomotor nephropathy Hyperkalemia Elevated D-dimer Morbid obesity Hospital Course: Hospital Course: 80-year-old male who presented to the ER with shortness of breath, rates it at 6/10, it is worse with moving, better with sitting still. While in the ER, he was noted to be a little anemic with a hemoglobin of 10.4. Chest x-ray showing some possible atypical infection. He has also in renal failure with creatinine of 2.3 and a BUN of 28. Patient was admitted for observation and O2 supplementation. He did not have any desat episodes and his renal function did remain stable. He does have follow up planned with Dr Alexandre and he will call to verify his appointment tomorrow. He will need to follow closely regarding his elevated Cr and his ARF. The rest of his hospital course was uneventful Disposition: Disposition/Orders: D/C to Home Activity: Activity: Resume previous activity Diet: Diet: Renal Medications: Home Meds Reported Medications Sitagliptin Phosphate (JANUVIA) 100 Mg Tablet, 1 TAB PO DAILY, #30 TAB 5 Refills 11/05/17 Simvastatin (SIMVASTATIN) 40 Mg Tablet, 1 TAB PO DAILY, #30 TAB 5 Refills 11/04/17 Metformin Hcl (METFORMIN HCL) 1,000 Mg Tablet, 1000 MG PO BIDWMEALS for ANTI- DIABETIC, TAB 0 Refills 10/03/15 Pioglitazone Hcl (PIOGLITAZONE HCL) 45 Mg Tablet, 45 MG PO DAILY, TAB 10/03/15 Doxazosin Mesylate (DOXAZOSIN MESYLATE) 4 Mg Tablet, 4 MG PO DAILY, TAB 10/03/15 Glipizide (GLIPIZIDE ER) 10 Mg Tab.er.24, 10 MG PO BID, TAB.SR 10/03/15 Discontinued Reported Medications Benazepril Hcl (BENAZEPRIL HCL) 20 Mg Tablet, 20 MG PO DAILY, TAB 10/03/15 Scheduled Doxazosin Mesylate (Doxazosin Mesylate), 4 MG PO DAILY, (Reported) Glipizide (Glipizide Er), 10 MG PO BID, (Reported) Metformin Hcl (Metformin Hcl), 1,000 MG PO BIDWMEALS, (Reported) Pioglitazone Hcl (Pioglitazone Hcl), 45 MG PO DAILY, (Reported) Simvastatin (Simvastatin), 1 TAB PO DAILY, (Reported) Sitagliptin Phosphate (Januvia), 1 TAB PO DAILY, (Reported) Discontinued Medications Benazepril Hcl (Benazepril Hcl), 20 MG PO DAILY, (Reported) Total Time: Total Time: Total time spent was 25 minutes in preparing scripts, discharge planning with SW and RN, and preparing this discharge summary. Patient seen and examined on day of discharge. Justicifation of Admission Dx: Justifications for Admission: Justification of Admission Dx: Yes Respiratory Failure: Severe Resp Distress MILLER ROMERO MD Oct 08, 2020 22:52
== END 2020-10-07 17:30 | disposition home or self-care (01) | DRG 683 ==
LOC: ER 15:14 → 6 SOUTH 18:08
PROVIDERS: ADMIT Internal Medicine; ATTEND Internal Medicine
DX: N17.0 Acute kidney failure with tubular necrosis (principal); Z68.41 Body mass index [BMI] 40.0-44.9, adult; I25.10 Atherosclerotic heart disease of native coronary artery without angina pectoris; D63.8 Anemia in other chronic diseases classified elsewhere; E87.5 Hyperkalemia; E66.01 Morbid (severe) obesity due to excess calories; N18.9 Chronic kidney disease, unspecified; E11.22 Type 2 diabetes mellitus with diabetic chronic kidney disease; I12.9 Hypertensive chronic kidney disease with stage 1 through stage 4 chronic kidney disease, or unspecified chronic kidney disease; E78.5 Hyperlipidemia, unspecified; J45.909 Unspecified asthma, uncomplicated; R09.02 Hypoxemia; Z20.828 Contact with and (suspected) exposure to other viral communicable diseases; Z85.46 Personal history of malignant neoplasm of prostate; Z98.49 Cataract extraction status, unspecified eye; Z83.3 Family history of diabetes mellitus
CPT/HCPCS: 36415; 71045; 80048; 80053; 82550; 82728; 82962; 83615; 83735; 83880; 84100; 84145; 84484; 85007; 85025; 85379; 86140; 87804; 93005; 94618; 96374; J1100; J1644; J1650; J1815; J3411; J7060; U0003; 99285-25; G0378

== ENCOUNTER 2021-10-31 09:04 | Inpatient (IN) | payer OTHER, MEDICARE ==
[~2021-10-31] VITALS: Ht 165.1 cm; Wt 108.9 kg
[~2021-10-31 09:04] MED LIST changes: -BENA20TA4 PO; +BENA20TA84 PO
--- NOTE | 2021-10-31 09:39 | ED.ADGEN ---
Past Medical History Past Medical History: Anemia, Asthma, Bronchitis, CAD, Cancer, Diabetes-Type II, Hypertension, Renal Disease, Other Additional Past Medical Histor: PROSTATE CA, Past Surgical History: Other Additional Past Surgical Histo: CATARACT SX, L THUMB Smoking Status: Light Tobacco Smoker Alcohol Use: None Drug Use: None General Adult EDM: Chief Complaint: LOWER EXTREMITY SWELLING HPI: HPI: Patient is a 81-year-old male who arrives ambulatory to the emergency department complaint of left lower extremity swelling. Patient reports his swelling is been present for about 3 days. Patient states in addition of this he has been more short of air than normal. Patient states he did speak with his primary care physician who referred him to the emergency department for further evaluation. Patient states despite having the swelling of his left lower extremity he is without pain. Patient further states he has never had a blood clot before. During this time the patient is not had any cough or fever. Additionally he denies chest pain of any kind. He further denies any history of a DVT. He is awake, alert and nontoxic-appearing Review of Systems: Review of Systems: Constitutional: Denies fever or chills. [] Eyes: Denies change in visual acuity. [] HENT: Denies nasal congestion or sore throat. [] Respiratory: Reports shortness of air. Denies cough [] Cardiovascular: Denies chest pain or edema. [] GI: Denies abdominal pain, nausea, vomiting, bloody stools or diarrhea. [] : Denies dysuria. [] Musculoskeletal: Denies back pain or joint pain. [] Integument: Denies rash. [] Neurologic: Denies headache, focal weakness or sensory changes. [] Endocrine: Denies polyuria or polydipsia. [] Lymphatic: Denies swollen glands. [] Psychiatric: Denies depression or anxiety. [] Current Medications: Current Medications Medications (Trade) Dose Ordered Sig/Alicia Start Time Stop Time Status Last Admin Dose Admin Furosemide (Lasix) 40 mg 1X ONCE 10/31/21 10:45 10/31/21 10:46 DC Ondansetron HCl (Zofran) 4 mg PRN Q8HRS PRN 10/31/21 10:45 11/01/21 10:44 Allergies: Allergies: Allergies Coded Allergies Type Severity Reaction Last Updated Verified No Known Drug Allergies 10/03/15 No Physical Exam: PE: Constitutional: Well developed, well nourished, no acute distress, non-toxic appearance. [] HENT: Normocephalic, atraumatic, bilateral external ears normal, oropharynx moist, no oral exudates, nose normal. [] Eyes: PERRLA, EOMI, conjunctiva normal, no discharge. [] Neck: Normal range of motion, no tenderness, supple, no stridor. [] Cardiovascular:Heart rate regular rhythm, no murmur [] Lungs & Thorax: Bilateral breath sounds clear to auscultation [] Abdomen: Bowel sounds normal, soft, no tenderness, no masses, no pulsatile masses. [] Skin: Warm, dry, no erythema, no rash. [] Back: No tenderness, no CVA tenderness. [] Extremities: No tenderness, no cyanosis, no clubbing, ROM intact, no edema. [] Neurologic: Alert and oriented X 3, normal motor function, normal sensory function, no focal deficits noted. [] Psychologic: Affect normal, judgement normal, mood normal. [] Current Patient Data: Labs: Laboratory Tests Test 10/31/21 09:38 10/31/21 10:25 White Blood Count 6.9 x10^3/uL (4.0-11.0) Red Blood Count 3.56 x10^6/uL (4.30-5.70) L Hemoglobin 9.8 g/dL (13.0-17.5) L Hematocrit 31.8 % (39.0-53.0) L Mean Corpuscular Volume 90 fL (79-100) Mean Corpuscular Hemoglobin 28 pg (25-35) Mean Corpuscular Hemoglobin Concent 31 g/dL (31-37) Red Cell Distribution Width 15.1 % (11.5-14.5) H Platelet Count 126 x10^3/uL (140-400) L Neutrophils (%) (Auto) 72 % (31-73) Lymphocytes (%) (Auto) 17 % (24-48) L Monocytes (%) (Auto) 8 % (0-9) Eosinophils (%) (Auto) 3 % (0-3) Basophils (%) (Auto) 1 % (0-3) Neutrophils # (Auto) 4.9 x10^3/uL (1.8-7.7) Lymphocytes # (Auto) 1.1 x10^3/uL (1.0-4.8) Monocytes # (Auto) 0.6 x10^3/uL (0.0-1.1) Eosinophils # (Auto) 0.2 x10^3/uL (0.0-0.7) Basophils # (Auto) 0.0 x10^3/uL (0.0-0.2) Sodium Level 142 mmol/L (136-145) Potassium Level 5.6 mmol/L (3.5-5.1) H Chloride Level 108 mmol/L (98-107) H Carbon Dioxide Level 28 mmol/L (21-32) Anion Gap 6 (6-14) Blood Urea Nitrogen 36 mg/dL (8-26) H Creatinine 2.3 mg/dL (0.7-1.3) H Estimated GFR (Cockcroft-Gault) 27.6 BUN/Creatinine Ratio 16 (6-20) Glucose Level 65 mg/dL (70-99) L Calcium Level 7.7 mg/dL (8.5-10.1) L Total Bilirubin 0.2 mg/dL (0.2-1.0) Aspartate Amino Transferase (AST) 19 U/L (15-37) Alanine Aminotransferase (ALT) 19 U/L (16-63) Alkaline Phosphatase 87 U/L (46-116) Troponin I High Sensitivity 36 ng/L (4-75) HN-Gtt-Z-Type Natriuretic Peptide 21974 pg/mL (0-449) H Total Protein 7.2 g/dL (6.4-8.2) Albumin 3.3 g/dL (3.4-5.0) L Albumin/Globulin Ratio 0.8 (1.0-1.7) L SARS-CoV-2 Antigen (Rapid) Negative (NEGATIVE) Laboratory Tests 10/31/21 09:38 Laboratory Tests 10/31/21 09:38 Vital Signs: Vital Signs Date Time Temp Pulse Resp B/P (MAP) Pulse Ox O2 Delivery O2 Flow Rate FiO2 10/31/21 10:51 72 27 153/69 (97) 97 Nasal Cannula 2.0 10/31/21 09:15 98.0 98.0 EKG: EKG: EKG was obtained at 9:47 AM revealed a normal sinus rhythm with a ventricular rate of 79 bpm. There is left axis deviation with what appears to be a left bundle branch block. There are no acute ST/T wave changes to denote ischemia otherwise. There is no STEMI. [] Heart Score: C/O Chest Pain: No Risk Factors: Risk Factors: DM, Current or recent (<one month) smoker, HTN, HLP, family h istory of CAD, obesity. Risk Scores: Score 0 - 3: 2.5% MACE over next 6 weeks - Discharge Home Score 4 - 6: 20.3% MACE over next 6 weeks - Admit for Clinical Observation Score 7 - 10: 72.7% MACE over next 6 weeks - Early Invasive Strategies Radiology/Procedures: Radiology/Procedures: [][address] [address] IMAGING REPORT Signed PATIENT: AUGUSTO CUNHA ACCOUNT: [id number] : 1940 LOCATION: ER AGE: 81 SEX: M EXAM STATUS: REG ER ORD. PHYSICIAN: JOSELYN LOPEZ DO REASON: SOA PROCEDURE: PORTABLE CHEST 1V EXAM: AP View of the chest DATE: 10/31/2021 9:36 AM INDICATION: Reason: SOA / Spl. Instructions: / History: COMPARISON: 10/05/2020 11/04/2017 FINDINGS: Heart is mildly enlarged. Mediastinal and hilar contours are stable. Linear and patchy opacities right midlung and bilateral lung bases. No pleural effusion or pneumothorax. IMPRESSION: Linear and patchy opacities right midlung and bilateral lung bases may represent atelectasis or developing consolidation. Electronically signed by: Valeriano Juárez MD (10/31/2021 10:22 AM) [id number] DICTATED and SIGNED BY: VALERIANO JUÁREZ MD DATE: 10/31/21 [id number] [id number] IMAGING REPORT Signed PATIENT: AUGUSTO CUNHA ACCOUNT: [id number] : 1940 LOCATION: ER AGE: 81 SEX: M EXAM STATUS: REG ER ORD. PHYSICIAN: JOSELYN LOPEZ DO REASON: SWELLING PROCEDURE: VENOUS LOWER EXTREMITY LEFT EXAMINATION: US DPLX VENOUS EXTREMITY LOWER LT (LOWER EXTREMITY VENOUS ULTRASOUND) CLINICAL HISTORY: Left lower extremity edema TECHNIQUE: Sonographic grayscale images obtained of the left lower extremity de ep venous system with color flow Doppler, compression, and augmentation techniques as indicated. Images obtained and stored in a permanent archive. COMPARISON: None FINDINGS: No evidence of absent flow or incompressibility within the common femoral vein, femoral vein, or popliteal vein. Visualized calf veins appear patent on limited evaluation. IMPRESSION: No evidence of left lower extremity DVT. Electronically signed by: Jairo Cameron DO (10/31/2021 10:19 AM) [id number] DICTATED and SIGNED BY: JAIRO CAMERON DO DATE: 10/31/21 [id number] Course & Med Decision Making: Course & Med Decision Making Pertinent Labs and Imaging studies reviewed. (See chart for details) [] Dragon Disclaimer: Dragon Disclaimer: This electronic medical record was generated, in whole or in part, using a voice recognition dictation system. Departure Departure Impression: Primary Impression: Congestive heart failure Additional Impressions: Hyperkalemia Renal insufficiency Hypoglycemia Disposition: ADMITTED INPATIENT Admitting Physician: HIMS Condition: STABLE Referrals: EMI ARNETT (PCP) Problem Qualifiers JOSELYN LOPEZ DO Oct 31, 2021 09:39
[2021-10-31 09:46] LABS: BASO % 1 % (0-3); EOS # 0.2 x10^3/uL (0.0-0.7); EOS % 3 % (0-3); HEMATOCRIT 31.8 % (39.0-53.0); HEMOGLOBIN 9.8 g/dL (13.0-17.5); LYMPH # 1.1 x10^3/uL (1.0-4.8); LYMPH % 17 % (24-48); MEAN CORPUSCULAR HEMOGLOBIN 28 pg (25-35); MEAN CORPUSCULAR HGB CONC 31 g/dL (31-37); MEAN CORPUSCULAR VOLUME 90 fL (79-100); MONO # 0.6 x10^3/uL (0.0-1.1); MONO % 8 % (0-9); NEUT # 4.9 x10^3/uL (1.8-7.7); NEUT % 72 % (31-73); PLATELET COUNT 126 x10^3/uL (140-400); RED BLOOD COUNT 3.56 x10^6/uL (4.30-5.70); RED CELL DISTRIBUTION WIDTH 15.1 % (11.5-14.5); WHITE BLOOD COUNT 6.9 x10^3/uL (4.0-11.0)
[2021-10-31 10:00] LABS: CALCIUM 7.7 mg/dL (8.5-10.1); CREATININE 2.3 mg/dL (0.7-1.3); GFR 27.6
[2021-10-31 10:02] LABS: POTASSIUM 5.6 mmol/L (3.5-5.1)
[2021-10-31 10:06] LABS: ALBUMIN 3.3 g/dL (3.4-5.0); ALBUMIN/GLOBULIN RATIO 0.8 (1.0-1.7); TOTAL BILIRUBIN 0.2 mg/dL (0.2-1.0); TOTAL PROTEIN 7.2 g/dL (6.4-8.2)
--- NOTE | 2021-10-31 10:21 | RAD ---
EXAMINATION: US DPLX VENOUS EXTREMITY LOWER LT (LOWER EXTREMITY VENOUS ULTRASOUND) CLINICAL HISTORY: Left lower extremity edema TECHNIQUE: Sonographic grayscale images obtained of the left lower extremity deep venous system with color flow Doppler, compression, and augmentation techniques as indicated. Images obtained and store d in a permanent archive. COMPARISON: None FINDINGS: No evidence of absent flow or incompressibility within the common femoral vein, femoral vein, or popl iteal vein. Visualized calf veins appear patent on limited evaluation. IMPRESSION: No evidence of left lower extremity DVT. Electronically signed by: Jairo Rivera DO (10/31/2021 10:19 AM) [id number]
--- NOTE | 2021-10-31 10:24 | RAD ---
EXAM: AP View of the chest DATE: 10/31/2021 9:36 AM INDICATION: Reason: SOA / Spl. Instructions: / History: COMPARISON: 10/05/2020 11/04/2017 FINDINGS: Heart is mildly enlarged. Mediastinal and hilar contours are stable. Linear and patchy opacities righ t midlung and bilateral lung bases. No pleural effusion or pneumothorax. IMPRESSION: Linear and patchy opacities right midlung and bilateral lung bases may represent atelectasis or devel oping consolidation. Electronically signed by: Valeriano Portillo MD (10/31/2021 10:22 AM) [email or web address]
[2021-10-31] MEDS ORDERED: ONDANSETRON PF 4 MG/2 ML VIAL. IVP PRN (10:45)
[2021-10-31] MEDS ORDERED: FUROSEMIDE 40 MG TABLET. PO ONE ×2 (10:45→18:30)
--- NOTE | 2021-10-31 11:02 | EKG ---
[facility] [address] [place] [address] Test Date: 2021-10-31 Test Time: 09:47:33 Pat Name: AUGUSTO CUNHA Department: Room: Gender: M Senior Trainer: : 1940 Requested By: JOSELYN LOPEZ Order Number: [id number] Reading MD: Tobin Slaughter MD Measurements Intervals [place] Rate: 79 P: 31 [place]: 180 QRS: -27 QRSD: 128 T: 138 QT: 404 QTc: 464 Interpretive Statements SINUS RHYTHM LBBB Electronically Signed On 11-03-2021 21:37:25 ETHOLOGIST by Tobin Slaughter MD
[2021-10-31 13:40] VITALS: BP 136/60
[2021-10-31] MEDS ORDERED: TAMSULOSIN 0.4 MG CAP.ER.24H. PO ONE (14:30)
[2021-10-31] MEDS ORDERED: BENA20TA84 PO (14:45)
[2021-10-31 14:48] VITALS: BP 118/56
[2021-10-31] MEDS: FUROSEMIDE 40 MG/4 ML VIAL. IVP SCH (14:54)
--- NOTE | 2021-10-31 15:08 | PDOC1 ---
History and Physical Date of Admission Date of Admission DATE: 10/31/21 TIME: 15:07 Source Source: Chart review, Patient History of Present Illness History of Present Illness MR. Humphries, is a 81-year-old male, admit wtih new shortness of breath and complaint of left lower extremity swelling, worse over 3 days. worse dyaspne on exertion and had orthopnea in the ER, he got a dose of lasix there and feels a little better already. his primary doctor, Dr. Holliday directed him to the ER. no chest pain. no cough or fever. 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[employer], [employer], Past Medical History Cardiovascular: HTN Renal/: Chronic renal insuff Endocrine: Diabetes Family History Family History: No Significant, Diabetes Social History Smoke: No ALCOHOL: none Current Problem List Problem List Problems Medical Problems: (1) Congestive heart failure Status: Acute (2) Hyperkalemia Status: Acute (3) Hypoglycemia Status: Acute (4) Renal insufficiency Status: Acute Current Medications Current Medications Current Medications Furosemide (Lasix) 40 mg 1X ONCE PO Last administered on 10/31/21at 11:15; Start 10/31/21 at 10:45; Stop 10/31/21 at 10:46; Status DC Ondansetron HCl (Zofran) 4 mg PRN Q8HRS PRN IVP NAUSEA/VOMITING; Start 10/31/21 at 10:45; Stop 11/01/21 at 10:44 Furosemide (Lasix) 40 mg BID92 IVP Last administered on 10/31/21at 14:54; Start 10/31/21 at 14:30 Tamsulosin HCl (Flomax) 0.4 mg 1X ONCE PO Last administered on 10/31/21at 14:54; Start 10/31/21 at 14:30; Stop 10/31/21 at 14:31; Status DC Tamsulosin HCl (Flomax) 0.4 mg DAILY PO ; Start 11/01/21 at 09:00 Doxazosin Mesylate (Cardura) 4 mg DAILY PO ; Start 11/01/21 at 09:00; Status UNV Simvastatin (Zocor) 40 mg DAILY PO ; Start 11/01/21 at 09:00; Status UNV Non-Formulary Medication (Benazepril Hcl ) 20 mg DAILY PO ; Start 11/01/21 at 09:00; Status UNV Non-Formulary Medication (Glipizide (Glipizide Er)) 10 mg BID PO ; Start 10/31/21 at 21:00; Status UNV Non-Formulary Medication (Pioglitazone Hcl ) 45 mg DAILY PO ; Start 11/01/21 at 09:00; Status UNV Non-Formulary Medication (Sitagliptin Phosphate (Januvia)) 1 tab DAILY PO ; Start 11/01/21 at 09:00; Status UNV Active Scripts Active Reported Benazepril Hcl 20 Mg Tablet 20 Mg PO DAILY Januvia (Sitagliptin Phosphate) 100 Mg Tablet 1 Tab PO DAILY Simvastatin 40 Mg Tablet 1 Tab PO DAILY Metformin Hcl 1,000 Mg Tablet 1,000 Mg PO BIDWMEALS Pioglitazone Hcl 45 Mg Tablet 45 Mg PO DAILY Doxazosin Mesylate 4 Mg Tablet 4 Mg PO DAILY Glipizide Er (Glipizide) 10 Mg Tab.er.24 10 Mg PO BID Allergies Allergies: Coded Allergies: No Known Drug Allergies (Unverified , 10/03/15) ROS General: No: Chills, Night Sweats, Fatigue, Malaise, Appetite, Other PSYCHOLOGICAL ROS: No: Anxiety, Behavioral Disorder, Concentration difficultie, Decreased libido, Depression, Disorientation, Hallucinations, Hostility, Irritablity, Memory difficulties, Mood Swings, Obsessive thoughts, Physical abuse, Sexual abuse, Sleep disturbances, Suicidal ideation, Other HEENT: No: Heacaches, Visual Changes, Hearing change, Nasal congestion, Nasal discharge, Oral lesions, Sinus pain, Sore Throat, Epistaxis, Sneezing, Snoring, Tinnitus, Vertigo, Vocal changes, Other Respiratory: YES: Orthopnea, Shortness of breath, SOB with excertion; No: Cough, Hemoptysis, Pleuritic Pain, Sputum Changes, Stridor, Tachypnea, Wheezing, Other Cardiovascular: yes Edema; No Chest Pain, No Palpitations, No Orthopnea, No Lt Headedness, No Other Gastrointestinal: No Nausea, No Vomiting, No Abdominal Pain, No Diarrhea, No Constipation, No Melena, No Hematochezia, No Other Genitourinary: YES Urgency, YES Other (low volume ); No Dysuria, No Frequency, No Incontinence, No Hematuria, No Retention, No Discharge, No Pain, No Flank Pain, No , No , No , No , No , No , No Musculoskeletal: No Gait Disturbance, No Joint Pain, No Joint Stiffness, No Joint Swelling, No Muscle Pain, No Muscular Weakness, No Pain In:, No Swelling In:, No Other Neurological: No Behavorial Changes, No Bowel/Bladder ControlChng, No Confusion, No Dizziness, No Gait Disturbance, No Headaches, No Impaired Coord/balance, No Memory Loss, No Numbness/Tingling, No Seizures, No Speech Problems, No Tremors, No Visual Changes, No Weakness, No Other Skin: No Dry Skin, No Eczema, No Hair Changes, No Lumps, No Mole Changes, No Mottling, No Nail Changes, No Pruritus, No Rash, No Skin Lesion Changes, No Other, No Acne Physical Exam General: Alert, Oriented X3, Cooperative HEENT: Atraumatic Lungs: Clear to auscultation Heart: S1S2, no murmurs Abdomen: Normal bowel sounds, Soft Extremities: No cyanosis, Other (2+ LE Edema) Skin: No breakdown Neuro: Normal speech, Sensation intact Psych/Mental Status: Mental status NL, Mood NL Vitals Vitals Vital Signs Date Time Temp Pulse Resp B/P (MAP) Pulse Ox O2 Delivery O2 Flow Rate FiO2 10/31/21 14:48 97.7 77 20 118/56 (76) 93 Nasal Cannula 2.0 97.7 Labs Labs Laboratory Tests Test 10/31/21 09:38 10/31/21 10:25 White Blood Count 6.9 x10^3/uL (4.0-11.0) Red Blood Count 3.56 x10^6/uL (4.30-5.70) Hemoglobin 9.8 g/dL (13.0-17.5) Hematocrit 31.8 % (39.0-53.0) Mean Corpuscular Volume 90 fL (79-100) Mean Corpuscular Hemoglobin 28 pg (25-35) Mean Corpuscular Hemoglobin Concent 31 g/dL (31-37) Red Cell Distribution Width 15.1 % (11.5-14.5) Platelet Count 126 x10^3/uL (140-400) Neutrophils (%) (Auto) 72 % (31-73) Lymphocytes (%) (Auto) 17 % (24-48) Monocytes (%) (Auto) 8 % (0-9) Eosinophils (%) (Auto) 3 % (0-3) Basophils (%) (Auto) 1 % (0-3) Neutrophils # (Auto) 4.9 x10^3/uL (1.8-7.7) Lymphocytes # (Auto) 1.1 x10^3/uL (1.0-4.8) Monocytes # (Auto) 0.6 x10^3/uL (0.0-1.1) Eosinophils # (Auto) 0.2 x10^3/uL (0.0-0.7) Basophils # (Auto) 0.0 x10^3/uL (0.0-0.2) Sodium Level 142 mmol/L (136-145) Potassium Level 5.6 mmol/L (3.5-5.1) Chloride Level 108 mmol/L (98-107) Carbon Dioxide Level 28 mmol/L (21-32) Anion Gap 6 (6-14) Blood Urea Nitrogen 36 mg/dL (8-26) Creatinine 2.3 mg/dL (0.7-1.3) Estimated GFR (Cockcroft-Gault) 27.6 BUN/Creatinine Ratio 16 (6-20) Glucose Level 65 mg/dL (70-99) Calcium Level 7.7 mg/dL (8.5-10.1) Total Bilirubin 0.2 mg/dL (0.2-1.0) Aspartate Amino Transf (AST/SGOT) 19 U/L (15-37) Alanine Aminotransferase (ALT/SGPT) 19 U/L (16-63) Alkaline Phosphatase 87 U/L (46-116) Troponin I High Sensitivity 36 ng/L (4-75) KE-Ous-H-Type Natriuretic Peptide 95838 pg/mL (0-449) Total Protein 7.2 g/dL (6.4-8.2) Albumin 3.3 g/dL (3.4-5.0) Albumin/Globulin Ratio 0.8 (1.0-1.7) SARS-CoV-2 RNA (DADA) Negative (Negative) SARS-CoV-2 Antigen (Rapid) Negative (NEGATIVE) Laboratory Tests Test 10/31/21 09:38 10/31/21 10:25 White Blood Count 6.9 x10^3/uL (4.0-11.0) Red Blood Count 3.56 x10^6/uL (4.30-5.70) Hemoglobin 9.8 g/dL (13.0-17.5) Hematocrit 31.8 % (39.0-53.0) Mean Corpuscular Volume 90 fL (79-100) Mean Corpuscular Hemoglobin 28 pg (25-35) Mean Corpuscular Hemoglobin Concent 31 g/dL (31-37) Red Cell Distribution Width 15.1 % (11.5-14.5) Platelet Count 126 x10^3/uL (140-400) Neutrophils (%) (Auto) 72 % (31-73) Lymphocytes (%) (Auto) 17 % (24-48) Monocytes (%) (Auto) 8 % (0-9) Eosinophils (%) (Auto) 3 % (0-3) Basophils (%) (Auto) 1 % (0-3) Neutrophils # (Auto) 4.9 x10^3/uL (1.8-7.7) Lymphocytes # (Auto) 1.1 x10^3/uL (1.0-4.8) Monocytes # (Auto) 0.6 x10^3/uL (0.0-1.1) Eosinophils # (Auto) 0.2 x10^3/uL (0.0-0.7) Basophils # (Auto) 0.0 x10^3/uL (0.0-0.2) Sodium Level 142 mmol/L (136-145) Potassium Level 5.6 mmol/L (3.5-5.1) Chloride Level 108 mmol/L (98-107) Carbon Dioxide Level 28 mmol/L (21-32) Anion Gap 6 (6-14) Blood Urea Nitrogen 36 mg/dL (8-26) Creatinine 2.3 mg/dL (0.7-1.3) Estimated GFR (Cockcroft-Gault) 27.6 BUN/Creatinine Ratio 16 (6-20) Glucose Level 65 mg/dL (70-99) Calcium Level 7.7 mg/dL (8.5-10.1) Total Bilirubin 0.2 mg/dL (0.2-1.0) Aspartate Amino Transf (AST/SGOT) 19 U/L (15-37) Alanine Aminotransferase (ALT/SGPT) 19 U/L (16-63) Alkaline Phosphatase 87 U/L (46-116) Troponin I High Sensitivity 36 ng/L (4-75) YX-Dzn-W-Type Natriuretic Peptide 44281 pg/mL (0-449) Total Protein 7.2 g/dL (6.4-8.2) Albumin 3.3 g/dL (3.4-5.0) Albumin/Globulin Ratio 0.8 (1.0-1.7) SARS-CoV-2 RNA (DADA) Negative (Negative) SARS-CoV-2 Antigen (Rapid) Negative (NEGATIVE) VTE Prophylaxis Ordered VTE Prophylaxis Devices: Yes VTE Pharmacological Prophylaxi: Yes Assessment/Plan Assessment/Plan Acute systolic CHF LE edema consutl CV BPH, add flomax obese, BMI 42 Dm2, hold metfomin, add SSI, for CV eval CKD 3, has seen Dr. Hawkins, will consult, check bladder scan, UA, Justifications for Admission Other Justification ANDREI RAMIREZ MD Oct 31, 2021 15:08
[2021-10-31] MEDS ORDERED: DEXTROSE 50% 25 GM / 50ML DISP.SYRIN. IV PRN (15:15)
[2021-10-31] MEDS ORDERED: LISINOPRIL 20 MG TABLET PO SCH (16:00)
[2021-10-31] MEDS ORDERED: ENOXAPARIN 30 MG/0.3 ML SYRINGE. SQ SCH (16:00)
[2021-10-31] MEDS: INSULIN LISPRO 300 UNITS/3 ML VIAL. SQ SCH ×2 (16:30→21:00)
[2021-10-31] MEDS: glipiZIDE ER 2.5 MG TAB.ER.24 PO SCH (17:04)
[2021-10-31] MEDS: DOXAZOSIN MESYLATE 4 MG TABLET. PO SCH (17:04)
[2021-10-31 17:40] LABS: CALCIUM 7.7 mg/dL (8.5-10.1); CREATININE 2.3 mg/dL (0.7-1.3); GFR 27.6
[2021-10-31 17:46] LABS: POTASSIUM 6.6 mmol/L (3.5-5.1)
[2021-10-31 18:21] VITALS: BP 140/60
[2021-10-31] MEDS ORDERED: SODIUM POLYSTYRENE SULFON/SORB 15 GM/60 ML ORAL.SUSP. PO ONE (18:30)
[2021-10-31] MEDS: SIMVASTATIN 40 MG TABLET. PO SCH (21:33)
[2021-10-31 22:18] VITALS: BP 161/73
[2021-10-31 23:48] LABS: BILIRUBIN,URINE NEGATIVE (NEG); CLARITY,URINE CLEAR; COLOR,URINE YELLOW; NITRITE,URINE NEGATIVE (NEG); PROTEIN,URINE NEGATIVE (NEG-TRACE); UROBILINOGEN,URINE 0.2 mg/dL (0.2 mg/dL)
[2021-11-01] VITALS (7 sets, daily range): BP systolic 147–190; BP diastolic 57–92
[2021-11-01] LABS: BACTERIA,URINE 0 /HPF (0-FEW); RBC,URINE 0 /HPF (0-2); WBC,URINE 0 /HPF (0-4)
[2021-11-01] MEDS: INSULIN LISPRO 300 UNITS/3 ML VIAL. SQ SCH ×4 (07:30→20:11)
[2021-11-01 08:56] LABS: CALCIUM 7.9 mg/dL (8.5-10.1); CREATININE 2.2 mg/dL (0.7-1.3)
[2021-11-01 09:00] LABS: BASO % 1 % (0-3); EOS # 0.1 x10^3/uL (0.0-0.7); EOS % 1 % (0-3); HEMATOCRIT 30.7 % (39.0-53.0); HEMOGLOBIN 9.5 g/dL (13.0-17.5); LYMPH # 1.1 x10^3/uL (1.0-4.8); LYMPH % 16 % (24-48); MEAN CORPUSCULAR HEMOGLOBIN 28 pg (25-35); MEAN CORPUSCULAR HGB CONC 31 g/dL (31-37); MEAN CORPUSCULAR VOLUME 90 fL (79-100); MONO # 0.7 x10^3/uL (0.0-1.1); MONO % 10 % (0-9); NEUT % 71 % (31-73); PLATELET COUNT 110 x10^3/uL (140-400); RED BLOOD COUNT 3.41 x10^6/uL (4.30-5.70); RED CELL DISTRIBUTION WIDTH 14.9 % (11.5-14.5)
[2021-11-01] MEDS: DOXAZOSIN MESYLATE 4 MG TABLET. PO SCH (09:00)
[2021-11-01] MEDS: FUROSEMIDE 40 MG/4 ML VIAL. IVP SCH ×2 (09:01→14:34)
[2021-11-01] MEDS: glipiZIDE ER 2.5 MG TAB.ER.24 PO SCH (09:01)
[2021-11-01] MEDS: PIOGLITAZONE 15 MG TABLET. PO SCH (09:01)
[2021-11-01] MEDS: LINAGLIPTIN 5 MG TABLET PO SCH (09:01)
[2021-11-01] MEDS: TAMSULOSIN 0.4 MG CAP.ER.24H. PO SCH (09:01)
[2021-11-01 09:04] LABS: POTASSIUM 6.3 mmol/L (3.5-5.1)
[2021-11-01] MEDS ORDERED: SODIUM POLYSTYRENE SULFON/SORB 15 GM/60 ML ORAL.SUSP. PO ONE (10:15)
--- NOTE | 2021-11-01 10:21 | PDOC2 ---
CARDIAC CONSULT DATE OF CONSULT Date of Consult DATE: 11/01/21 TIME: 10:07 REASON FOR CONSULT Reason for Consult: Acute CHF REFERRING PHYSICIAN Referring Physician: Samuel SOURCE Source: Chart review, Patient HISTORY OF PRESENT ILLNESS HISTORY OF PRESENT ILLNESS This is a pleasant 81 yo male admitted for complains of SOA. He has been having this in the last few days. He has not been worked up for LOGAN. 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 He is diabetic and has been having hypoglycemic reaction as an inpt. Denies any hx of arrhythmia, CAD or CVA. Denies any recent pneumonia productive cough any past hx of VTE. He does not take NSAIDs except for baby ASA. It appears that he is not a good historian. PAST MEDICAL HISTORY Cardiovascular: CAD (?), HTN, Hyperlipidemia, Other (PAD) Pulmonary: Asthma CENTRAL NERVOUS SYSTEM: Other (No pertinent history) GI: No pertinent hx Heme/Onc: Anemia NOS Hepatobiliary: No pertinent hx Psych: No pertinent hx Musculoskeletal: Osteoarthritis Rheumatologic: No pertinent hx Infectious disease: No pertinent hx ENT: Other (cataract) Renal/: Chronic renal insuff, Prostate Ca. (?) Endocrine: Diabetes (2) Dermatology: No pertinent hx PAST SURGICAL HISTORY Past Surgical History: Cataract Removal, Tonsillectomy FAMILY HISTORY Family History: Diabetes SOCIAL HISTORY Smoke: No ALCOHOL: none Drugs: None Lives: with Family CURRENT MEDICATIONS CURRENT MEDICATIONS Current Medications Medications (Trade) Dose Ordered Sig/Alicia Route PRN Reason Start Time Stop Time Status Last Admin Dose Admin Furosemide (Lasix) 40 mg 1X ONCE PO 10/31/21 10:45 10/31/21 10:46 DC 10/31/21 11:15 Furosemide (Lasix) 40 mg BID92 IVP 10/31/21 14:30 11/01/21 09:01 Tamsulosin HCl (Flomax) 0.4 mg 1X ONCE PO 10/31/21 14:30 10/31/21 14:31 DC 10/31/21 14:54 Tamsulosin HCl (Flomax) 0.4 mg DAILY PO 11/01/21 09:00 11/01/21 09:01 Doxazosin Mesylate (Cardura) 4 mg DAILY PO 10/31/21 16:00 11/01/21 09:00 Simvastatin (Zocor) 40 mg QHS PO 10/31/21 21:00 10/31/21 21:33 Glipizide (Glucotrol Er) 10 mg BIDAC PO 10/31/21 16:30 11/01/21 09:01 Pioglitazone HCl (Actos) 45 mg DAILY PO 11/01/21 09:00 11/01/21 09:01 Linagliptin (Tradjenta) 5 mg DAILY PO 11/01/21 09:00 11/01/21 09:01 Enoxaparin Sodium (Lovenox 30mg Syringe) 30 mg Q24H SQ 10/31/21 16:00 10/31/21 17:05 Furosemide (Lasix) 40 mg 1X ONCE PO 10/31/21 18:30 10/31/21 18:31 DC 10/31/21 18:28 Sodium Polystyrene Sulfonate (Kayexalate) 15 gm 1X ONCE PO 10/31/21 18:30 10/31/21 18:31 DC 10/31/21 18:27 ALLERGIES ALLERGIES: Coded Allergies: No Known Drug Allergies (Unverified , 10/03/15) ROS Review of System Limited, poor historian PHYSICAL EXAM General: Alert, Oriented X3, Cooperative, No acute distress HEENT: Atraumatic, Mucous membr. moist/pink Lungs: Other (basilar crackles) Heart: Regular rate (SR), Normal S1, Normal S2, No murmurs Abdomen: Soft, No tenderness Extremities: No cyanosis, Other (3+ bilateral LE pitting edema) Skin: No breakdown, No significant lesion Neuro: Normal speech, Sensation intact Psych/Mental Status: Mental status NL, Mood NL MUSCULOSKELETAL: Osteoarthritic changes both hands VITALS/I&O VITALS/I&O: Vital Signs Date Time Temp Pulse Resp B/P (MAP) Pulse Ox O2 Delivery O2 Flow Rate FiO2 11/01/21 09:00 75 147/63 11/01/21 08:00 Nasal Cannula 1.0 11/01/21 07:00 98.7 18 93 98.7 I & O 10/31/21 10/31/21 11/01/21 15:00 23:00 07:00 Intake Total 180 ml 100 ml Output Total 850 ml 675 ml Balance -670 ml -575 ml LABS Lab: Laboratory Tests Test 10/31/21 10:25 10/31/21 17:06 10/31/21 17:20 10/31/21 20:29 SARS-CoV-2 RNA (DADA) Negative (Negative) SARS-CoV-2 Antigen (Rapid) Negative (NEGATIVE) Glucose (Fingerstick) 72 mg/dL (70-99) 100 mg/dL (70-99) H Sodium Level 142 mmol/L (136-145) Potassium Level 6.6 mmol/L (3.5-5.1) *H Chloride Level 107 mmol/L (98-107) Carbon Dioxide Level 28 mmol/L (21-32) Anion Gap 7 (6-14) Blood Urea Nitrogen 39 mg/dL (8-26) H Creatinine 2.3 mg/dL (0.7-1.3) H Estimated GFR (Cockcroft-Gault) 27.6 Glucose Level 87 mg/dL (70-99) Calcium Level 7.7 mg/dL (8.5-10.1) L Test 10/31/21 22:15 11/01/21 08:40 11/01/21 08:59 11/01/21 09:51 Urine Collection Type Unknown Urine Color Yellow Urine Clarity Clear Urine pH 5.0 (<5.0-8.0) Urine Specific [place] <=1.005 (1.000-1.030) Urine Protein Negative mg/dL (NEG-TRACE) Urine Glucose (UA) Negative mg/dL (NEG) Urine Ketones (Stick) Negative mg/dL (NEG) Urine Blood Negative (NEG) Urine Nitrite Negative (NEG) Urine Bilirubin Negative (NEG) Urine Urobilinogen Dipstick 0.2 mg/dL (0.2 mg/dL) Urine Leukocyte Esterase Negative (NEG) Urine RBC 0 /HPF (0-2) Urine WBC 0 /HPF (0-4) Urine Squamous Epithelial Cells Few /LPF Urine Bacteria 0 /HPF (0-FEW) Urine Mucus Slight /LPF White Blood Count 7.0 x10^3/uL (4.0-11.0) Red Blood Count 3.41 x10^6/uL (4.30-5.70) L Hemoglobin 9.5 g/dL (13.0-17.5) L Hematocrit 30.7 % (39.0-53.0) L Mean Corpuscular Volume 90 fL (79-100) Mean Corpuscular Hemoglobin 28 pg (25-35) Mean Corpuscular Hemoglobin Concent 31 g/dL (31-37) Red Cell Distribution Width 14.9 % (11.5-14.5) H Platelet Count 110 x10^3/uL (140-400) L Neutrophils (%) (Auto) 71 % (31-73) Lymphocytes (%) (Auto) 16 % (24-48) L Monocytes (%) (Auto) 10 % (0-9) H Eosinophils (%) (Auto) 1 % (0-3) Basophils (%) (Auto) 1 % (0-3) Neutrophils # (Auto) 5.0 x10^3/uL (1.8-7.7) Lymphocytes # (Auto) 1.1 x10^3/uL (1.0-4.8) Monocytes # (Auto) 0.7 x10^3/uL (0.0-1.1) Eosinophils # (Auto) 0.1 x10^3/uL (0.0-0.7) Basophils # (Auto) 0.0 x10^3/uL (0.0-0.2) Sodium Level 142 mmol/L (136-145) Potassium Level 6.3 mmol/L (3.5-5.1) *H Chloride Level 106 mmol/L (98-107) Carbon Dioxide Level 29 mmol/L (21-32) Anion Gap 7 (6-14) Blood Urea Nitrogen 39 mg/dL (8-26) H Creatinine 2.2 mg/dL (0.7-1.3) H Estimated GFR (Cockcroft-Gault) 29.0 Glucose Level 55 mg/dL (70-99) L Calcium Level 7.9 mg/dL (8.5-10.1) L Glucose (Fingerstick) 52 mg/dL (70-99) L 89 mg/dL (70-99) Laboratory Tests 11/01/21 08:40 Laboratory Tests 10/31/21 17:20 11/01/21 08:40 ASSESSMENT/PLAN ASSESSMENT/PLAN 1. Acute on chronic CHF with pssible diastolic/systolic dysfunction 2. JOSETTE on CKD3 with hyperkalemia 3. HTN: controlled 4. HLP 5. DM2 with hypoglycemic episode: per PCP 6. Hx of LE PAD: no pain no wounds 7. Morbid obesity 8. suspect CM Recommendations 1. TTE, TSH and FLP 2. will need DM regimen adjustment, defer to PCP 3. Continue ASA, DC lisinopril will adjust BP regimen per trend 4. Consult nephrology 5. Kayexelate. Continue lasix therapy 6. Recommend LOGAN w/u 7. Ischemic workup possibly as an outpt and recommend quantaflow readings as an outpt as well for LE PAD 8. Follow up with Dr. Feldman on 11/2021 JEANETH BUTTS APRN Nov 01, 2021 10:21
[2021-11-01 10:42] LABS: CHOLESTEROL/HDL RATIO 1.8
--- NOTE | 2021-11-01 11:06 | CARD ---
MR#: [id number] Date of Study: 11/01/2021 Ordering Physician: JEANETH BUTTS, Referring Physician: JEANETH BUTTS Tech: Marilee Cruz [facility] APPROVED REPORT EXAM: Two-dimensional and M-mode echocardiogram with Doppler and color Doppler. Other Information Quality : AverageHR: 58bpm Rhythm : NSR INDICATION Congestive Heart Failure RISK FACTORS Hypertension Obesity Hyperlipidemia 2D DIMENSIONS RVDd4.4 (2.9-3.5cm)Left Atrium(2D)5.1 (1.6-4.0cm) IVSd1.4 (0.7-1.1cm)LVDd6.4 (3.9-5.9cm) LVOT Diameter2.4 (1.8-2.4cm)PWd1.2 (0.7-1.1cm) LVDs5.1 (2.5-4.0cm)FS (%) 20.0 % SV83.9 ml Aortic Valve AoV Peak Mynor.192.9cm/sAoV VTI37.6cm AO Peak GR.14.9mmHgLVOT Peak Mynor.108.7cm/s AO Mean GR.8mmHgAVA (VMAX)2.54cm2 Mitral Valve MV E Liuhajrg886.4cm/sMV DECEL [id number] MV A Ghjkiukg475.3cm/sE/A Ratio1.2 Pulmonary Valve PV Peak Zovuougy371.1cm/s Tricuspid Valve TR P. Maamhcnr957jh/sTR Peak Gr.40mmHg LEFT VENTRICLE The Left Ventricle is mild to moderately dilated. There is mild concentric left ventricular hypertrop hy. Left ventricular systolic function is moderately decreased. Estimated LV ejection fraction is 35 %. There is a septal wall motion abnormality as well as mild global hypokinesis. RIGHT VENTRICLE The right ventricle is normal size. There is normal right ventricular wall thickness. The right ventr icular systolic function is normal. ATRIA The left atrium is mildly dilated. The right atrium size is normal. The interatrial septum is intact with no evidence for an atrial septal defect or patent foramen ovale as noted on 2-D or Doppler imagi ng. AORTIC VALVE The aortic valve is normal in structure and function. Doppler and Color Flow revealed trace aortic re gurgitation. There is no significant aortic valvular stenosis. MITRAL VALVE The mitral valve is normal in structure and function. There is no evidence of mitral valve prolapse. There is no mitral valve stenosis. Doppler and Color-flow revealed mild mitral regurgitation. TRICUSPID VALVE The tricuspid valve is normal in structure and function. Doppler and Color Flow revealed trace to mil d tricuspid regurgitation. Estimated PAP 30-35 mmHg. There is no tricuspid valve stenosis. PULMONIC VALVE The pulmonary valve is normal in structure and function. Doppler and Color Flow revealed trace pulmon ic valvular regurgitation. GREAT VESSELS The aortic root is normal in size. PERICARDIAL EFFUSION There is no evidence of significant pericardial effusion. Critical Notification Critical Value: No <Conclusion> The Left Ventricle is mild to moderately dilated. Left ventricular systolic function is moderately decreased. Estimated LV ejection fraction is 35%. There is a septal wall motion abnormality as well as mild global hypokinesis. There is mild concentric left ventricular hypertrophy. Doppler and Color Flow revealed trace aortic regurgitation. There is no significant aortic valvular stenosis. Doppler and Color-flow revealed mild mitral regurgitation. Doppler and Color Flow revealed trace to mild tricuspid regurgitation. Estimated PAP 30-35 mmHg. Signed by : Stefan Feldman MD Electronically Approved : 11/01/2021 11:05:43
--- NOTE | 2021-11-01 12:55 | PDOC2 ---
CONSULT Date of Consult Date of Consult DATE: 11/01/21 TIME: 12:47 Reason for Consult Reason for Consult: RENAL FAILURE Referring Physician Referring Physician: ASHLEY Identification/Chief Complaint Chief Complaint SOB Source Source: Chart review, Patient History of Present Illness Reason for Visit: THIS IS A 81 YR OLD WITH SOB. ADMITTED WITH DX OF CHF. BEING EVALUATED BY CARDIOLOGY AT THIS TIME. ECHOCARDIOGRAM SHOWED EF OF 35%. K OF 6.3 AND CR OF 2.3. HE HAS CKD STAGE 3B WITH BASELINE CR OF 2.3. CKD IS DUE TO DM II AND HTN HX. HE HAS BEEN ON METFORMIN AND THIS HAS BEEN CONTINUED DUE TO STABLE RENAL FXN. HE HAS ALSO BEEN AN GUDELIA-I TO LIMIT HIS END ORGAN DAMAGE AND HTN. HEMODYNAMICALLY STABLE. OTHER HX NOTABLE FOR BPH WITH LUTS AND HE HAS BEEN ON FLOMAX Past Medical History Cardiovascular: CAD (?), HTN, Hyperlipidemia, Other (PAD) Pulmonary: Asthma CENTRAL NERVOUS SYSTEM: Other (No pertinent history) GI: No pertinent hx Heme/Onc: Anemia NOS Hepatobiliary: No pertinent hx Psych: No pertinent hx Musculoskeletal: Osteoarthritis Rheumatologic: No pertinent hx Infectious disease: No pertinent hx ENT: Other (cataract) Renal/: Chronic renal insuff, Prostate Ca. (?) Endocrine: Diabetes (2) Dermatology: No pertinent hx Past Surgical History Past Surgical History: Cataract Removal, Tonsillectomy Family History Family History: Diabetes Social History No ALCOHOL: none Drugs: None Lives: with Family Current Problem List Problem List Problems Medical Problems: (1) Congestive heart failure Status: Acute (2) Hyperkalemia Status: Acute (3) Hypoglycemia Status: Acute (4) Renal insufficiency Status: Acute Current Medications Current Medications Current Medications Furosemide (Lasix) 40 mg 1X ONCE PO Last administered on 10/31/21at 11:15; Start 10/31/21 at 10:45; Stop 10/31/21 at 10:46; Status DC Ondansetron HCl (Zofran) 4 mg PRN Q8HRS PRN IVP NAUSEA/VOMITING; Start 10/31/21 at 10:45; Stop 11/01/21 at 10:44; Status DC Furosemide (Lasix) 40 mg BID92 IVP Last administered on 11/01/21at 09:01; Start 10/31/21 at 14:30 Tamsulosin HCl (Flomax) 0.4 mg 1X ONCE PO Last administered on 10/31/21at 14:54; Start 10/31/21 at 14:30; Stop 10/31/21 at 14:31; Status DC Tamsulosin HCl (Flomax) 0.4 mg DAILY PO Last administered on 11/01/21at 09:01; Start 11/01/21 at 09:00 Doxazosin Mesylate (Cardura) 4 mg DAILY PO Last administered on 11/01/21at 09 :00; Start 10/31/21 at 16:00 Simvastatin (Zocor) 40 mg QHS PO Last administered on 10/31/21at 21:33; Start 10/31/21 at 21:00 Lisinopril (Prinivil) 20 mg DAILY PO ; Start 10/31/21 at 16:00; Stop 10/31/21 at 16:58; Status DC Glipizide (Glucotrol Er) 10 mg BIDAC PO Last administered on 11/01/21at 09:01; Start 10/31/21 at 16:30 Pioglitazone HCl (Actos) 45 mg DAILY PO Last administered on 11/01/21at 09:01; Start 11/01/21 at 09:00 Linagliptin (Tradjenta) 5 mg DAILY PO Last administered on 11/01/21at 09:01; Start 11/01/21 at 09:00 Insulin Human Lispro (HumaLOG) 0-9 UNITS QIDACHS SQ ; Start 10/31/21 at 16:30 Dextrose (Dextrose 50%-Water Syringe) 12.5 gm PRN Q15MIN PRN IV SEE COMMENTS; Start 10/31/21 at 15:15 Enoxaparin Sodium (Lovenox Per Pharmacy Prophylaxis Dosing) 1 each PRN DAILY PRN MC SEE COMMENTS; Start 10/31/21 at 15:30 Enoxaparin Sodium (Lovenox 30mg Syringe) 30 mg Q24H SQ Last administered on 10/31/21at 17:05; Start 10/31/21 at 16:00 Furosemide (Lasix) 40 mg 1X ONCE PO Last administered on 10/31/21at 18:28; Start 10/31/21 at 18:30; Stop 10/31/21 at 18:31; Status DC Sodium Polystyrene Sulfonate (Kayexalate) 15 gm 1X ONCE PO Last administered on 12/2/21at 18:27; Start 10/31/21 at 18:30; Stop 10/31/21 at 18:31; Status DC Sodium Polystyrene Sulfonate (Kayexalate) 15 gm 1X ONCE PO Last administered on 11/01/21at 10:23; Start 11/01/21 at 10:15; Stop 11/01/21 at 10:16; Status DC Aspirin (Ecotrin) 81 mg DAILYWBKFT PO ; Start 11/02/21 at 08:00 Active Scripts Active Reported Benazepril Hcl 20 Mg Tablet 20 Mg PO DAILY Januvia (Sitagliptin Phosphate) 100 Mg Tablet 1 Tab PO DAILY Simvastatin 40 Mg Tablet 1 Tab PO DAILY Metformin Hcl 1,000 Mg Tablet 1,000 Mg PO BIDWMEALS Pioglitazone Hcl 45 Mg Tablet 45 Mg PO DAILY Doxazosin Mesylate 4 Mg Tablet 4 Mg PO DAILY Glipizide Er (Glipizide) 10 Mg Tab.er.24 10 Mg PO BID Allergies Allergies: Coded Allergies: No Known Drug Allergies (Unverified , 10/03/15) ROS General: YES: Fatigue, Malaise, Appetite Eyes: Yes Decreased vision HEENT: YES: Heacaches Respiratory: YES: Cough, Shortness of breath Cardiovascular: yes Orthopnea, yes Edema Gastrointestinal: Yes Constipation Genitourinary: YES Other (NOCTURIA) Musculoskeletal: Yes Muscular Weakness Skin: Yes Dry Skin Physical Exam General: Alert, Oriented X3, Cooperative, No acute distress HEENT: Atraumatic, PERRLA Lungs: Other (DECREASED AT BASES) Heart: Regular rate Abdomen: Normal bowel sounds, Soft, No tenderness Extremities: No clubbing Skin: No breakdown Neuro: Normal speech, Cranial nerves 3-12 NL Psych/Mental Status: Mental status NL, Mood NL MUSCULOSKELETAL: No joint tenderness, No deformity Vitals VITALS Vital Signs Date Time Temp Pulse Resp B/P (MAP) Pulse Ox O2 Delivery O2 Flow Rate FiO2 11/01/21 11:06 99.4 82 20 163/57 (92) 92 Nasal Cannula 1.0 99.4 Labs Labs Laboratory Tests Test 10/31/21 09:38 10/31/21 10:25 10/31/21 17:06 10/31/21 17:20 White Blood Count 6.9 x10^3/uL (4.0-11.0) Red Blood Count 3.56 x10^6/uL (4.30-5.70) Hemoglobin 9.8 g/dL (13.0-17.5) Hematocrit 31.8 % (39.0-53.0) Mean Corpuscular Volume 90 fL (79-100) Mean Corpuscular Hemoglobin 28 pg (25-35) Mean Corpuscular Hemoglobin Concent 31 g/dL (31-37) Red Cell Distribution Width 15.1 % (11.5-14.5) Platelet Count 126 x10^3/uL (140-400) Neutrophils (%) (Auto) 72 % (31-73) Lymphocytes (%) (Auto) 17 % (24-48) Monocytes (%) (Auto) 8 % (0-9) Eosinophils (%) (Auto) 3 % (0-3) Basophils (%) (Auto) 1 % (0-3) Neutrophils # (Auto) 4.9 x10^3/uL (1.8-7.7) Lymphocytes # (Auto) 1.1 x10^3/uL (1.0-4.8) Monocytes # (Auto) 0.6 x10^3/uL (0.0-1.1) Eosinophils # (Auto) 0.2 x10^3/uL (0.0-0.7) Basophils # (Auto) 0.0 x10^3/uL (0.0-0.2) Sodium Level 142 mmol/L (136-145) 142 mmol/L (136-145) Potassium Level 5.6 mmol/L (3.5-5.1) 6.6 mmol/L (3.5-5.1) Chloride Level 108 mmol/L (98-107) 107 mmol/L (98-107) Carbon Dioxide Level 28 mmol/L (21-32) 28 mmol/L (21-32) Anion Gap 6 (6-14) 7 (6-14) Blood Urea Nitrogen 36 mg/dL (8-26) 39 mg/dL (8-26) Creatinine 2.3 mg/dL (0.7-1.3) 2.3 mg/dL (0.7-1.3) Estimated GFR (Cockcroft-Gault) 27.6 27.6 BUN/Creatinine Ratio 16 (6-20) Glucose Level 65 mg/dL (70-99) 87 mg/dL (70-99) Calcium Level 7.7 mg/dL (8.5-10.1) 7.7 mg/dL (8.5-10.1) Total Bilirubin 0.2 mg/dL (0.2-1.0) Aspartate Amino Transf (AST/SGOT) 19 U/L (15-37) Alanine Aminotransferase (ALT/SGPT) 19 U/L (16-63) Alkaline Phosphatase 87 U/L (46-116) Troponin I High Sensitivity 36 ng/L (4-75) BD-Pgu-B-Type Natriuretic Peptide 04365 pg/mL (0-449) Total Protein 7.2 g/dL (6.4-8.2) Albumin 3.3 g/dL (3.4-5.0) Albumin/Globulin Ratio 0.8 (1.0-1.7) SARS-CoV-2 RNA (DADA) Negative (Negative) SARS-CoV-2 Antigen (Rapid) Negative (NEGATIVE) Glucose (Fingerstick) 72 mg/dL (70-99) Test 10/31/21 20:29 10/31/21 22:15 11/01/21 08:40 11/01/21 08:59 Glucose (Fingerstick) 100 mg/dL (70-99) 52 mg/dL (70-99) Urine Collection Type Unknown Urine Color Yellow Urine Clarity Clear Urine pH 5.0 (<5.0-8.0) Urine Specific [place] <=1.005 (1.000-1.030) Urine Protein Negative mg/dL (NEG-TRACE) Urine Glucose (UA) Negative mg/dL (NEG) Urine Ketones (Stick) Negative mg/dL (NEG) Urine Blood Negative (NEG) Urine Nitrite Negative (NEG) Urine Bilirubin Negative (NEG) Urine Urobilinogen Dipstick 0.2 mg/dL (0.2 mg/dL) Urine Leukocyte Esterase Negative (NEG) Urine RBC 0 /HPF (0-2) Urine WBC 0 /HPF (0-4) Urine Squamous Epithelial Cells Few /LPF Urine Bacteria 0 /HPF (0-FEW) Urine Mucus Slight /LPF White Blood Count 7.0 x10^3/uL (4.0-11.0) Red Blood Count 3.41 x10^6/uL (4.30-5.70) Hemoglobin 9.5 g/dL (13.0-17.5) Hematocrit 30.7 % (39.0-53.0) Mean Corpuscular Volume 90 fL (79-100) Mean Corpuscular Hemoglobin 28 pg (25-35) Mean Corpuscular Hemoglobin Concent 31 g/dL (31-37) Red Cell Distribution Width 14.9 % (11.5-14.5) Platelet Count 110 x10^3/uL (140-400) Neutrophils (%) (Auto) 71 % (31-73) Lymphocytes (%) (Auto) 16 % (24-48) Monocytes (%) (Auto) 10 % (0-9) Eosinophils (%) (Auto) 1 % (0-3) Basophils (%) (Auto) 1 % (0-3) Neutrophils # (Auto) 5.0 x10^3/uL (1.8-7.7) Lymphocytes # (Auto) 1.1 x10^3/uL (1.0-4.8) Monocytes # (Auto) 0.7 x10^3/uL (0.0-1.1) Eosinophils # (Auto) 0.1 x10^3/uL (0.0-0.7) Basophils # (Auto) 0.0 x10^3/uL (0.0-0.2) Sodium Level 142 mmol/L (136-145) Potassium Level 6.3 mmol/L (3.5-5.1) Chloride Level 106 mmol/L (98-107) Carbon Dioxide Level 29 mmol/L (21-32) Anion Gap 7 (6-14) Blood Urea Nitrogen 39 mg/dL (8-26) Creatinine 2.2 mg/dL (0.7-1.3) Estimated GFR (Cockcroft-Gault) 29.0 Glucose Level 55 mg/dL (70-99) Calcium Level 7.9 mg/dL (8.5-10.1) Triglycerides Level 63 mg/dL (0-150) Cholesterol Level 98 mg/dL (0-200) LDL Cholesterol, Calculated 32 mg/dL (0-100) VLDL Cholesterol, Calculated 13 mg/dL (0-40) Non-HDL Cholesterol Calculated 45 mg/dL (0-129) HDL Cholesterol 53 mg/dL (40-60) Cholesterol/HDL Ratio 1.8 Thyroid Stimulating Hormone (TSH) 2.517 uIU/mL (0.358-3.74) Test 11/01/21 09:51 11/01/21 11:33 Glucose (Fingerstick) 89 mg/dL (70-99) 77 mg/dL (70-99) Laboratory Tests Test 10/31/21 17:06 10/31/21 17:20 10/31/21 20:29 10/31/21 22:15 Glucose (Fingerstick) 72 mg/dL (70-99) 100 mg/dL (70-99) Sodium Level 142 mmol/L (136-145) Potassium Level 6.6 mmol/L (3.5-5.1) Chloride Level 107 mmol/L (98-107) Carbon Dioxide Level 28 mmol/L (21-32) Anion Gap 7 (6-14) Blood Urea Nitrogen 39 mg/dL (8-26) Creatinine 2.3 mg/dL (0.7-1.3) Estimated GFR (Cockcroft-Gault) 27.6 Glucose Level 87 mg/dL (70-99) Calcium Level 7.7 mg/dL (8.5-10.1) Urine Collection Type Unknown Urine Color Yellow Urine Clarity Clear Urine pH 5.0 (<5.0-8.0) Urine Specific [place] <=1.005 (1.000-1.030) Urine Protein Negative mg/dL (NEG-TRACE) Urine Glucose (UA) Negative mg/dL (NEG) Urine Ketones (Stick) Negative mg/dL (NEG) Urine Blood Negative (NEG) Urine Nitrite Negative (NEG) Urine Bilirubin Negative (NEG) Urine Urobilinogen Dipstick 0.2 mg/dL (0.2 mg/dL) Urine Leukocyte Esterase Negative (NEG) Urine RBC 0 /HPF (0-2) Urine WBC 0 /HPF (0-4) Urine Squamous Epithelial Cells Few /LPF Urine Bacteria 0 /HPF (0-FEW) Urine Mucus Slight /LPF Test 11/01/21 08:40 11/01/21 08:59 11/01/21 09:51 11/01/21 11:33 White Blood Count 7.0 x10^3/uL (4.0-11.0) Red Blood Count 3.41 x10^6/uL (4.30-5.70) Hemoglobin 9.5 g/dL (13.0-17.5) Hematocrit 30.7 % (39.0-53.0) Mean Corpuscular Volume 90 fL (79-100) Mean Corpuscular Hemoglobin 28 pg (25-35) Mean Corpuscular Hemoglobin Concent 31 g/dL (31-37) Red Cell Distribution Width 14.9 % (11.5-14.5) Platelet Count 110 x10^3/uL (140-400) Neutrophils (%) (Auto) 71 % (31-73) Lymphocytes (%) (Auto) 16 % (24-48) Monocytes (%) (Auto) 10 % (0-9) Eosinophils (%) (Auto) 1 % (0-3) Basophils (%) (Auto) 1 % (0-3) Neutrophils # (Auto) 5.0 x10^3/uL (1.8-7.7) Lymphocytes # (Auto) 1.1 x10^3/uL (1.0-4.8) Monocytes # (Auto) 0.7 x10^3/uL (0.0-1.1) Eosinophils # (Auto) 0.1 x10^3/uL (0.0-0.7) Basophils # (Auto) 0.0 x10^3/uL (0.0-0.2) Sodium Level 142 mmol/L (136-145) Potassium Level 6.3 mmol/L (3.5-5.1) Chloride Level 106 mmol/L (98-107) Carbon Dioxide Level 29 mmol/L (21-32) Anion Gap 7 (6-14) Blood Urea Nitrogen 39 mg/dL (8-26) Creatinine 2.2 mg/dL (0.7-1.3) Estimated GFR (Cockcroft-Gault) 29.0 Glucose Level 55 mg/dL (70-99) Calcium Level 7.9 mg/dL (8.5-10.1) Triglycerides Level 63 mg/dL (0-150) Cholesterol Level 98 mg/dL (0-200) LDL Cholesterol, Calculated 32 mg/dL (0-100) VLDL Cholesterol, Calculated 13 mg/dL (0-40) Non-HDL Cholesterol Calculated 45 mg/dL (0-129) HDL Cholesterol 53 mg/dL (40-60) Cholesterol/HDL Ratio 1.8 Thyroid Stimulating Hormone (TSH) 2.517 uIU/mL (0.358-3.74) Glucose (Fingerstick) 52 mg/dL (70-99) 89 mg/dL (70-99) 77 mg/dL (70-99) Images Images EXAM: AP View of the chest DATE: 10/31/2021 9:36 AM INDICATION: Reason: SOA / Spl. Instructions: / History: COMPARISON: 10/05/2020 11/04/2017 FINDINGS: Heart is mildly enlarged. Mediastinal and hilar contours are stable. Linear and patchy opacities right midlung and bilateral lung bases. No pleural effusion or pneumothorax. IMPRESSION: Linear and patchy opacities right midlung and bilateral lung bases may represent atelectasis or developing consolidation. Electronically signed by: Valeriano Portillo MD (10/31/2021 10:22 AM) [id number] Assessment/Plan Assessment/Plan IMP HYPERKALEMIA CKD STAGE 3B-CR STABLE AT 2.3 ACUTE ON CHRONIC SYSTOLIC CHF CARDIOMYOPATHY WITH EF OF 35% LE EDEMA DM II HTN PLAN K BINDER IV LASIX CARDIOLOGY EVALUATION HOLD GUDELIA- AND METFORMIN FOR NOW LABS IN AM WILL FOLLOW HAYLIE BUCK MD Nov 01, 2021 12:55
--- NOTE | 2021-11-01 13:03 | PDOC ---
[employer] PROGRESS NOTE Date of Service DOS: DATE: 11/01/21 TIME: 13:00 Chief Complaint Chief Complaint Acute systolic CHF LE edema consutl CV BPH, add flomax obese, BMI 42 Dm2, hold metfomin, add SSI, for CV eval CKD 3, has seen Dr. Hawkins, will consult, check bladder scan, UA, Possible history of LOGAN will try a nighttime CPAP BiPAP to see how he tolerates. Can do sleep study outpatient. History of Present Illness History of Present Illness MR. Humphries, is a 81-year-old male, admit wtih new shortness of breath and complaint of left lower extremity swelling, worse over 3 days. worse dyaspne on exertion and had orthopnea in the ER, he got a dose of lasix there and feels a little better already. his primary doctor, Dr. Holliday directed him to the ER. no chest pain. no cough or fever. 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 Resting in bed evaluated no complaints. On supplemental O2. Handful of cardiac work-up pending still. Continue to follow closely. Diuresis. Vitals/I&O Vitals/I&O: Vital Signs Date Time Temp Pulse Resp B/P (MAP) Pulse Ox O2 Delivery O2 Flow Rate FiO2 11/01/21 11:06 99.4 82 20 163/57 (92) 92 Nasal Cannula 1.0 99.4 I & O 10/31/21 10/31/21 11/01/21 15:00 23:00 07:00 Intake Total 180 ml 100 ml Output Total 850 ml 675 ml Balance -670 ml -575 ml Physical Exam General: Alert, Oriented X3, Cooperative, No acute distress Heart: Regular rate Lungs: Clear, Other Abdomen: Normal bowel sounds, Soft, No tenderness Extremities: Normal pulses, Other (Lower extremity edema) Skin: No breakdown, No significant lesion Labs Labs: Laboratory Tests Test 10/31/21 17:06 10/31/21 17:20 10/31/21 20:29 10/31/21 22:15 Glucose (Fingerstick) 72 mg/dL (70-99) 100 mg/dL (70-99) Sodium Level 142 mmol/L (136-145) Potassium Level 6.6 mmol/L (3.5-5.1) Chloride Level 107 mmol/L (98-107) Carbon Dioxide Level 28 mmol/L (21-32) Anion Gap 7 (6-14) Blood Urea Nitrogen 39 mg/dL (8-26) Creatinine 2.3 mg/dL (0.7-1.3) Estimated GFR (Cockcroft-Gault) 27.6 Glucose Level 87 mg/dL (70-99) Calcium Level 7.7 mg/dL (8.5-10.1) Urine Collection Type Unknown Urine Color Yellow Urine Clarity Clear Urine pH 5.0 (<5.0-8.0) Urine Specific [place] <=1.005 (1.000-1.030) Urine Protein Negative mg/dL (NEG-TRACE) Urine Glucose (UA) Negative mg/dL (NEG) Urine Ketones (Stick) Negative mg/dL (NEG) Urine Blood Negative (NEG) Urine Nitrite Negative (NEG) Urine Bilirubin Negative (NEG) Urine Urobilinogen Dipstick 0.2 mg/dL (0.2 mg/dL) Urine Leukocyte Esterase Negative (NEG) Urine RBC 0 /HPF (0-2) Urine WBC 0 /HPF (0-4) Urine Squamous Epithelial Cells Few /LPF Urine Bacteria 0 /HPF (0-FEW) Urine Mucus Slight /LPF Test 11/01/21 08:40 11/01/21 08:59 11/01/21 09:51 11/01/21 11:33 White Blood Count 7.0 x10^3/uL (4.0-11.0) Red Blood Count 3.41 x10^6/uL (4.30-5.70) Hemoglobin 9.5 g/dL (13.0-17.5) Hematocrit 30.7 % (39.0-53.0) Mean Corpuscular Volume 90 fL (79-100) Mean Corpuscular Hemoglobin 28 pg (25-35) Mean Corpuscular Hemoglobin Concent 31 g/dL (31-37) Red Cell Distribution Width 14.9 % (11.5-14.5) Platelet Count 110 x10^3/uL (140-400) Neutrophils (%) (Auto) 71 % (31-73) Lymphocytes (%) (Auto) 16 % (24-48) Monocytes (%) (Auto) 10 % (0-9) Eosinophils (%) (Auto) 1 % (0-3) Basophils (%) (Auto) 1 % (0-3) Neutrophils # (Auto) 5.0 x10^3/uL (1.8-7.7) Lymphocytes # (Auto) 1.1 x10^3/uL (1.0-4.8) Monocytes # (Auto) 0.7 x10^3/uL (0.0-1.1) Eosinophils # (Auto) 0.1 x10^3/uL (0.0-0.7) Basophils # (Auto) 0.0 x10^3/uL (0.0-0.2) Sodium Level 142 mmol/L (136-145) Potassium Level 6.3 mmol/L (3.5-5.1) Chloride Level 106 mmol/L (98-107) Carbon Dioxide Level 29 mmol/L (21-32) Anion Gap 7 (6-14) Blood Urea Nitrogen 39 mg/dL (8-26) Creatinine 2.2 mg/dL (0.7-1.3) Estimated GFR (Cockcroft-Gault) 29.0 Glucose Level 55 mg/dL (70-99) Calcium Level 7.9 mg/dL (8.5-10.1) Triglycerides Level 63 mg/dL (0-150) Cholesterol Level 98 mg/dL (0-200) LDL Cholesterol, Calculated 32 mg/dL (0-100) VLDL Cholesterol, Calculated 13 mg/dL (0-40) Non-HDL Cholesterol Calculated 45 mg/dL (0-129) HDL Cholesterol 53 mg/dL (40-60) Cholesterol/HDL Ratio 1.8 Thyroid Stimulating Hormone (TSH) 2.517 uIU/mL (0.358-3.74) Glucose (Fingerstick) 52 mg/dL (70-99) 89 mg/dL (70-99) 77 mg/dL (70-99) Assessment and Plan Assessmemt and Plan Problems Medical Problems: (1) Congestive heart failure Status: Acute (2) Hyperkalemia Status: Acute (3) Hypoglycemia Status: Acute (4) Renal insufficiency Status: Acute Comment Review of Relevant I have reviewed the following items elisa (where applicable) has been applied. Medications: Current Medications Medications (Trade) Dose Ordered Sig/Alicia Route PRN Reason Start Time Stop Time Status Last Admin Dose Admin Furosemide (Lasix) 40 mg BID92 IVP 10/31/21 14:30 11/01/21 09:01 Tamsulosin HCl (Flomax) 0.4 mg 1X ONCE PO 10/31/21 14:30 10/31/21 14:31 DC 10/31/21 14:54 Tamsulosin HCl (Flomax) 0.4 mg DAILY PO 11/01/21 09:00 11/01/21 09:01 Doxazosin Mesylate (Cardura) 4 mg DAILY PO 10/31/21 16:00 11/01/21 09:00 Simvastatin (Zocor) 40 mg QHS PO 10/31/21 21:00 10/31/21 21:33 Glipizide (Glucotrol Er) 10 mg BIDAC PO 10/31/21 16:30 Hold 11/01/21 09:01 Pioglitazone HCl (Actos) 45 mg DAILY PO 11/01/21 09:00 11/01/21 09:01 Linagliptin (Tradjenta) 5 mg DAILY PO 11/01/21 09:00 11/01/21 09:01 Enoxaparin Sodium (Lovenox 30mg Syringe) 30 mg Q24H SQ 10/31/21 16:00 10/31/21 17:05 Furosemide (Lasix) 40 mg 1X ONCE PO 10/31/21 18:30 10/31/21 18:31 DC 10/31/21 18:28 Sodium Polystyrene Sulfonate (Kayexalate) 15 gm 1X ONCE PO 10/31/21 18:30 10/31/21 18:31 DC 10/31/21 18:27 Sodium Polystyrene Sulfonate (Kayexalate) 15 gm 1X ONCE PO 11/01/21 10:15 11/01/21 10:16 DC 11/01/21 10:23 Justifications for Admission Other Justification PRAVEENA BUTT MD Nov 01, 2021 13:03
--- NOTE | 2021-11-01 13:37 | NUR ---
SS following for discharge planning. SS reviewed pt chart and discussed with pt RN. Pt is currently requiring oxygen at one liter nasal canula. COVID19 negative. Cardiology and Nephrology following. Pt had critical potassium today. Pt on IV Lasix and diuresing. SS will continue to follow for discharge planning.
[2021-11-01] MEDS: SIMVASTATIN 40 MG TABLET. PO SCH (20:10)
[2021-11-01] MEDS: ENOXAPARIN 40 MG/0.4 ML SYRINGE. SQ SCH (20:12)
[2021-11-02 03:00] VITALS: BP 177/60
[2021-11-02 04:48] LABS: CALCIUM 7.7 mg/dL (8.5-10.1); CREATININE 2.3 mg/dL (0.7-1.3); GFR 27.6; MAGNESIUM 1.7 mg/dL (1.8-2.4); POTASSIUM 5.8 mmol/L (3.5-5.1)
[2021-11-02 06:07] VITALS: BP 151/61
[2021-11-02] MEDS: INSULIN LISPRO 300 UNITS/3 ML VIAL. SQ SCH ×4 (07:30→21:00)
[2021-11-02] MEDS: glipiZIDE ER 2.5 MG TAB.ER.24 PO SCH (09:22)
[2021-11-02] MEDS: ASPIRIN ENTERIC COATED 81 MG TABLET.DR. PO SCH (09:24)
[2021-11-02] MEDS: LINAGLIPTIN 5 MG TABLET PO SCH (09:24)
[2021-11-02] MEDS: PIOGLITAZONE 15 MG TABLET. PO SCH (09:24)
[2021-11-02] MEDS: DOXAZOSIN MESYLATE 4 MG TABLET. PO SCH (09:24)
[2021-11-02] MEDS: TAMSULOSIN 0.4 MG CAP.ER.24H. PO SCH (09:24)
[2021-11-02] MEDS: FUROSEMIDE 40 MG/4 ML VIAL. IVP SCH ×2 (09:25→15:09)
[2021-11-02] MEDS: ENOXAPARIN 40 MG/0.4 ML SYRINGE. SQ SCH ×2 (09:26→22:59)
[2021-11-02 10:01] VITALS: BP 183/73
[2021-11-02 15:00] VITALS: BP 149/58
--- NOTE | 2021-11-02 17:26 | PDOC ---
[employer] PROGRESS NOTE Date of Service DOS: DATE: 11/02/21 TIME: 17:25 Chief Complaint Chief Complaint Acute systolic CHF LE edema consutl CV BPH, add flomax obese, BMI 42 Dm2, hold metfomin, add SSI, for CV eval CKD 3, has seen Dr. Hawkins, will consult, check bladder scan, UA, Possible history of LOGAN will try a nighttime CPAP BiPAP to see how he tolerates. Can do sleep study outpatient. History of Present Illness History of Present Illness MR. Humphries, is a 81-year-old male, admit wtih new shortness of breath and complaint of left lower extremity swelling, worse over 3 days. worse dyaspne on exertion and had orthopnea in the ER, he got a dose of lasix there and feels a little better already. his primary doctor, Dr. Holliday directed him to the ER. no chest pain. no cough or fever. 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 Resting in bed evaluated no complaints. On supplemental O2. Handful of cardiac work-up pending still. Continue to follow closely. Diuresis. 11/02 Patient evaluated examined at bedside. Resting in bed no acute complaints. Continue current plan. Cardiology following. Vitals/I&O Vitals/I&O: Vital Signs Date Time Temp Pulse Resp B/P (MAP) Pulse Ox O2 Delivery O2 Flow Rate FiO2 11/02/21 15:00 99.3 88 18 149/58 (88) 92 Nasal Cannula 1.0 99.3 I & O 11/01/21 11/01/21 11/02/21 15:00 23:00 07:00 Intake Total 420 ml 330 ml Output Total 1700 ml 600 ml Balance -1280 ml 330 ml -600 ml Physical Exam General: Alert, Oriented X3, Cooperative, No acute distress Heart: Regular rate Lungs: Clear, Other Abdomen: Normal bowel sounds, Soft, No tenderness Extremities: Normal pulses, Other (Lower extremity edema) Skin: No breakdown, No significant lesion Labs Labs: Laboratory Tests Test 11/01/21 19:55 11/02/21 04:00 11/02/21 07:10 11/02/21 11:53 Glucose (Fingerstick) 145 mg/dL (70-99) 123 mg/dL (70-99) 222 mg/dL (70-99) Sodium Level 144 mmol/L (136-145) Potassium Level 5.8 mmol/L (3.5-5.1) Chloride Level 105 mmol/L (98-107) Carbon Dioxide Level 31 mmol/L (21-32) Anion Gap 8 (6-14) Blood Urea Nitrogen 40 mg/dL (8-26) Creatinine 2.3 mg/dL (0.7-1.3) Estimated GFR (Cockcroft-Gault) 27.6 Glucose Level 120 mg/dL (70-99) Calcium Level 7.7 mg/dL (8.5-10.1) Magnesium Level 1.7 mg/dL (1.8-2.4) Test 11/02/21 16:40 Glucose (Fingerstick) 192 mg/dL (70-99) Assessment and Plan Assessmemt and Plan Problems Medical Problems: (1) Congestive heart failure Status: Acute (2) Hyperkalemia Status: Acute (3) Hypoglycemia Status: Acute (4) Renal insufficiency Status: Acute Comment Review of Relevant I have reviewed the following items elisa (where applicable) has been applied. Medications: Current Medications Medications (Trade) Dose Ordered Sig/Alicia Route PRN Reason Start Time Stop Time Status Last Admin Dose Admin Aspirin (Ecotrin) 81 mg DAILYWBKFT PO 11/02/21 08:00 11/02/21 09:24 Glipizide (Glucotrol Er) 10 mg DAILY08 PO 11/02/21 08:00 11/02/21 09:22 Enoxaparin Sodium (Lovenox 40mg Syringe) 40 mg Q12HR SQ 11/01/21 21:00 11/02/21 09:26 Justifications for Admission Other Justification PRAVEENA BUTT MD Nov 02, 2021 17:26
--- NOTE | 2021-11-02 18:14 | PDOC ---
PROGRESS NOTES Date of Service DATE: 11/02/21 TIME: 18:11 Subjective Subjective Patient seen and examined Objective Objective Vital Signs Date Time Temp Pulse Resp B/P (MAP) Pulse Ox O2 Delivery O2 Flow Rate FiO2 11/02/21 15:00 99.3 88 18 149/58 (88) 92 Nasal Cannula 1.0 99.3 Intake and Output 11/02/21 07:00 Intake Total 750 ml Output Total 2300 ml Balance -1550 ml Intake Oral 750 ml Output Urine Total 2300 ml # Bowel Movements 1 Physical Exam Abdomen: Normal bowel sounds Heart: Regular rate General: mild distress Lungs: Other (Mildly decreased breath sounds) Assessment Assessment Problems Medical Problems: (1) Congestive heart failure Status: Acute (2) Hyperkalemia Status: Acute (3) Hypoglycemia Status: Acute (4) Renal insufficiency Status: Acute 1. Acute on chronic CHF. Improved. Echo as noted above with an ejection fraction of 35%. We will continue present treatment. Outpatient ischemia work- up. 2. JOSETTE on CKD3 with hyperkalemia. Followed by the renal service. Morning potassium of 5.8 and creatinine of 2.3. 3. HTN: controlled 4. HLP. Continue present treatment. 5. DM2 with hypoglycemic episode: per PCP 6. Hx of LE PAD: no pain no wounds Comment Review of Relevant I have reviewed the following items elisa (where applicable) has been applied. Labs Laboratory Tests Test 10/31/21 20:29 10/31/21 22:15 11/01/21 08:40 11/01/21 08:59 Glucose (Fingerstick) 100 mg/dL (70-99) 52 mg/dL (70-99) Urine Collection Type Unknown Urine Color Yellow Urine Clarity Clear Urine pH 5.0 (<5.0-8.0) Urine Specific [place] <=1.005 (1.000-1.030) Urine Protein Negative mg/dL (NEG-TRACE) Urine Glucose (UA) Negative mg/dL (NEG) Urine Ketones (Stick) Negative mg/dL (NEG) Urine Blood Negative (NEG) Urine Nitrite Negative (NEG) Urine Bilirubin Negative (NEG) Urine Urobilinogen Dipstick 0.2 mg/dL (0.2 mg/dL) Urine Leukocyte Esterase Negative (NEG) Urine RBC 0 /HPF (0-2) Urine WBC 0 /HPF (0-4) Urine Squamous Epithelial Cells Few /LPF Urine Bacteria 0 /HPF (0-FEW) Urine Mucus Slight /LPF White Blood Count 7.0 x10^3/uL (4.0-11.0) Red Blood Count 3.41 x10^6/uL (4.30-5.70) Hemoglobin 9.5 g/dL (13.0-17.5) Hematocrit 30.7 % (39.0-53.0) Mean Corpuscular Volume 90 fL (79-100) Mean Corpuscular Hemoglobin 28 pg (25-35) Mean Corpuscular Hemoglobin Concent 31 g/dL (31-37) Red Cell Distribution Width 14.9 % (11.5-14.5) Platelet Count 110 x10^3/uL (140-400) Neutrophils (%) (Auto) 71 % (31-73) Lymphocytes (%) (Auto) 16 % (24-48) Monocytes (%) (Auto) 10 % (0-9) Eosinophils (%) (Auto) 1 % (0-3) Basophils (%) (Auto) 1 % (0-3) Neutrophils # (Auto) 5.0 x10^3/uL (1.8-7.7) Lymphocytes # (Auto) 1.1 x10^3/uL (1.0-4.8) Monocytes # (Auto) 0.7 x10^3/uL (0.0-1.1) Eosinophils # (Auto) 0.1 x10^3/uL (0.0-0.7) Basophils # (Auto) 0.0 x10^3/uL (0.0-0.2) Sodium Level 142 mmol/L (136-145) Potassium Level 6.3 mmol/L (3.5-5.1) Chloride Level 106 mmol/L (98-107) Carbon Dioxide Level 29 mmol/L (21-32) Anion Gap 7 (6-14) Blood Urea Nitrogen 39 mg/dL (8-26) Creatinine 2.2 mg/dL (0.7-1.3) Estimated GFR (Cockcroft-Gault) 29.0 Glucose Level 55 mg/dL (70-99) Calcium Level 7.9 mg/dL (8.5-10.1) Triglycerides Level 63 mg/dL (0-150) Cholesterol Level 98 mg/dL (0-200) LDL Cholesterol, Calculated 32 mg/dL (0-100) VLDL Cholesterol, Calculated 13 mg/dL (0-40) Non-HDL Cholesterol Calculated 45 mg/dL (0-129) HDL Cholesterol 53 mg/dL (40-60) Cholesterol/HDL Ratio 1.8 Thyroid Stimulating Hormone (TSH) 2.517 uIU/mL (0.358-3.74) Test 11/01/21 09:51 11/01/21 11:33 11/01/21 17:06 11/01/21 19:55 Glucose (Fingerstick) 89 mg/dL (70-99) 77 mg/dL (70-99) 82 mg/dL (70-99) 145 mg/dL (70-99) Test 11/02/21 04:00 11/02/21 07:10 11/02/21 11:53 11/02/21 16:40 Sodium Level 144 mmol/L (136-145) Potassium Level 5.8 mmol/L (3.5-5.1) Chloride Level 105 mmol/L (98-107) Carbon Dioxide Level 31 mmol/L (21-32) Anion Gap 8 (6-14) Blood Urea Nitrogen 40 mg/dL (8-26) Creatinine 2.3 mg/dL (0.7-1.3) Estimated GFR (Cockcroft-Gault) 27.6 Glucose Level 120 mg/dL (70-99) Calcium Level 7.7 mg/dL (8.5-10.1) Magnesium Level 1.7 mg/dL (1.8-2.4) Glucose (Fingerstick) 123 mg/dL (70-99) 222 mg/dL (70-99) 192 mg/dL (70-99) Laboratory Tests Test 11/01/21 19:55 11/02/21 04:00 11/02/21 07:10 11/02/21 11:53 Glucose (Fingerstick) 145 mg/dL (70-99) 123 mg/dL (70-99) 222 mg/dL (70-99) Sodium Level 144 mmol/L (136-145) Potassium Level 5.8 mmol/L (3.5-5.1) Chloride Level 105 mmol/L (98-107) Carbon Dioxide Level 31 mmol/L (21-32) Anion Gap 8 (6-14) Blood Urea Nitrogen 40 mg/dL (8-26) Creatinine 2.3 mg/dL (0.7-1.3) Estimated GFR (Cockcroft-Gault) 27.6 Glucose Level 120 mg/dL (70-99) Calcium Level 7.7 mg/dL (8.5-10.1) Magnesium Level 1.7 mg/dL (1.8-2.4) Test 11/02/21 16:40 Glucose (Fingerstick) 192 mg/dL (70-99) Medications Current Medications Furosemide (Lasix) 40 mg 1X ONCE PO Last administered on 10/31/21at 11:15; Start 10/31/21 at 10:45; Stop 10/31/21 at 10:46; Status DC Ondansetron HCl (Zofran) 4 mg PRN Q8HRS PRN IVP NAUSEA/VOMITING; Start 10/31/21 at 10:45; Stop 11/01/21 at 10:44; Status DC Furosemide (Lasix) 40 mg BID92 IVP Last administered on 11/02/21at 15:09; Start 10/31/21 at 14:30 Tamsulosin HCl (Flomax) 0.4 mg 1X ONCE PO Last administered on 10/31/21at 14:54; Start 10/31/21 at 14:30; Stop 10/31/21 at 14:31; Status DC Tamsulosin HCl (Flomax) 0.4 mg DAILY PO Last administered on 11/02/21at 09:24; Start 11/01/21 at 09:00 Doxazosin Mesylate (Cardura) 4 mg DAILY PO Last administered on 11/02/21at 09:24; Start 10/31/21 at 16:00 Simvastatin (Zocor) 40 mg QHS PO Last administered on 11/01/21at 20:10; Start 10/31/21 at 21:00 Lisinopril (Prinivil) 20 mg DAILY PO ; Start 10/31/21 at 16:00; Stop 10/31/21 at 16:58; Status DC Glipizide (Glucotrol Er) 10 mg BIDAC PO Last administered on 11/01/21at 09:01; Start 10/31/21 at 16:30; Stop 11/01/21 at 13:02; Status DC Pioglitazone HCl (Actos) 45 mg DAILY PO Last administered on 11/02/21at 09:24; Start 11/01/21 at 09:00 Linagliptin (Tradjenta) 5 mg DAILY PO Last administered on 11/02/21at 09:24; Start 11/01/21 at 09:00 Insulin Human Lispro (HumaLOG) 0-9 UNITS QIDACHS SQ Last administered on 11/02/21at 17:48; Start 10/31/21 at 16:30 Dextrose (Dextrose 50%-Water Syringe) 12.5 gm PRN Q15MIN PRN IV SEE COMMENTS; Start 10/31/21 at 15:15 Enoxaparin Sodium (Lovenox Per Pharmacy Prophylaxis Dosing) 1 each PRN DAILY PRN MC SEE COMMENTS; Start 10/31/21 at 15:30 Enoxaparin Sodium (Lovenox 30mg Syringe) 30 mg Q24H SQ Last administered on 10/31/21at 17:05; Start 10/31/21 at 16:00; Stop 11/01/21 at 13:33; Status DC Furosemide (Lasix) 40 mg 1X ONCE PO Last administered on 10/31/21at 18:28; Start 10/31/21 at 18:30; Stop 10/31/21 at 18:31; Status DC Sodium Polystyrene Sulfonate (Kayexalate) 15 gm 1X ONCE PO Last administered on 10/31/21at 18:27; Start 10/31/21 at 18:30; Stop 10/31/21 at 18:31; Status DC Sodium Polystyrene Sulfonate (Kayexalate) 15 gm 1X ONCE PO Last administered on 11/01/21at 10:23; Start 11/01/21 at 10:15; Stop 11/01/21 at 10:16; Status DC Aspirin (Ecotrin) 81 mg DAILYWBKFT PO Last administered on 11/02/21at 09:24; Start 11/02/21 at 08:00 Glipizide (Glucotrol Er) 10 mg DAILY08 PO Last administered on 11/02/21at 09:22; Start 11/02/21 at 08:00 Enoxaparin Sodium (Lovenox 40mg Syringe) 40 mg Q12HR SQ Last administered on 11/02/21at 09:26; Start 11/01/21 at 21:00 Active Scripts Active Reported Benazepril Hcl 20 Mg Tablet 20 Mg PO DAILY Januvia (Sitagliptin Phosphate) 100 Mg Tablet 1 Tab PO DAILY Simvastatin 40 Mg Tablet 1 Tab PO DAILY Metformin Hcl 1,000 Mg Tablet 1,000 Mg PO BIDWMEALS Pioglitazone Hcl 45 Mg Tablet 45 Mg PO DAILY Doxazosin Mesylate 4 Mg Tablet 4 Mg PO DAILY Glipizide Er (Glipizide) 10 Mg Tab.er.24 10 Mg PO BID Vitals/I & O Vital Sign - Last 24 Hours 11/01/21 11/01/21 11/01/21 11/01/21 19:00 20:10 22:59 23:30 Temp 97.8 98.2 97.8 98.2 Pulse 80 83 Resp 18 18 B/P (MAP) 179/92 (121) 190/61 (104) Pulse Ox 94 94 96 O2 Delivery Nasal Cannula Nasal Cannula Nasal Cannula BiPAP/CPAP O2 Flow Rate 1.0 1.0 1.0 11/02/21 11/02/21 11/02/21 11/02/21 03:00 06:07 08:00 09:24 Temp 98.0 98.0 98.0 98.0 Pulse 82 77 77 Resp 21 18 B/P (MAP) 177/60 (99) 151/61 (91) 151/61 Pulse Ox 93 96 O2 Delivery Nasal Cannula Nasal Cannula Nasal Cannula O2 Flow Rate 1.0 1.0 1.0 11/02/21 11/02/21 10:01 15:00 Temp 100.1 99.3 100.1 99.3 Pulse 73 88 Resp 18 18 B/P (MAP) 183/73 (109) 149/58 (88) Pulse Ox 94 92 O2 Delivery Nasal Cannula Nasal Cannula O2 Flow Rate 1.0 1.0 Intake and Output 11/01/21 11/01/21 11/02/21 15:00 23:00 07:00 Intake Total 420 ml 330 ml Output Total 1700 ml 600 ml Balance -1280 ml 330 ml -600 ml Justifications for Admission Other Justification VERENICE MERRILL MD Nov 02, 2021 18:14
[2021-11-02 19:18] VITALS: BP 154/68
[2021-11-02 22:38] VITALS: BP 127/57
[2021-11-02] MEDS: SIMVASTATIN 40 MG TABLET. PO SCH (22:59)
[2021-11-03 02:49] VITALS: BP 180/71
[2021-11-03 04:56] LABS: CALCIUM 7.8 mg/dL (8.5-10.1); CREATININE 2.2 mg/dL (0.7-1.3); POTASSIUM 5.1 mmol/L (3.5-5.1)
[2021-11-03 07:00] VITALS: BP 210/78
[2021-11-03] MEDS: INSULIN LISPRO 300 UNITS/3 ML VIAL. SQ SCH ×4 (07:30→20:50)
[2021-11-03] MEDS: glipiZIDE ER 2.5 MG TAB.ER.24 PO SCH (08:53)
[2021-11-03] MEDS: ASPIRIN ENTERIC COATED 81 MG TABLET.DR. PO SCH (08:53)
[2021-11-03] MEDS: DOXAZOSIN MESYLATE 4 MG TABLET. PO SCH (08:53)
[2021-11-03] MEDS: PIOGLITAZONE 15 MG TABLET. PO SCH (08:54)
[2021-11-03] MEDS: LINAGLIPTIN 5 MG TABLET PO SCH (08:54)
[2021-11-03] MEDS: FUROSEMIDE 40 MG/4 ML VIAL. IVP SCH ×2 (08:54→13:45)
[2021-11-03] MEDS: TAMSULOSIN 0.4 MG CAP.ER.24H. PO SCH (08:54)
[2021-11-03] MEDS: ENOXAPARIN 40 MG/0.4 ML SYRINGE. SQ SCH ×2 (09:03→20:52)
[2021-11-03 11:00] VITALS: BP 156/56
--- NOTE | 2021-11-03 13:06 | PDOC ---
[facility] PROGRESS NOTE Date of Service DOS: DATE: 11/03/21 TIME: 13:05 Chief Complaint Chief Complaint Acute systolic CHF LE edema consutl CV BPH, add flomax obese, BMI 42 Dm2, hold metfomin, add SSI, for CV eval CKD 3, has seen Dr. Hawkins, will consult, check bladder scan, UA, Possible history of LOGAN will try a nighttime CPAP BiPAP to see how he tolerates. Can do sleep study outpatient. History of Present Illness History of Present Illness MR. Humphries, is a 81-year-old male, admit wtih new shortness of breath and complaint of left lower extremity swelling, worse over 3 days. worse dyaspne on exertion and had orthopnea in the ER, he got a dose of lasix there and feels a little better already. his primary doctor, Dr. Holliday directed him to the ER. no chest pain. no cough or fever. 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 Resting in bed evaluated no complaints. On supplemental O2. Handful of cardiac work-up pending still. Continue to follow closely. Diuresis. 11/02 Patient evaluated examined at bedside. Resting in bed no acute complaints. Continue current plan. Cardiology following. 11/02 Patient valuation at bedside. Resting in bed doing well. Diuresis continued today possible DC in the next day or 2 Vitals/I&O Vitals/I&O: Vital Signs Date Time Temp Pulse Resp B/P (MAP) Pulse Ox O2 Delivery O2 Flow Rate FiO2 11/03/21 11:00 99.1 73 18 156/56 (89) 96 Nasal Cannula 1.0 99.1 I & O 11/02/21 11/02/21 11/03/21 15:00 23:00 07:00 Intake Total 360 ml 180 ml 0 ml Output Total 525 ml 850 ml 300 ml Balance -165 ml -670 ml -300 ml Physical Exam General: Alert, mild distress Heart: Regular rate Lungs: Clear, Other Abdomen: Normal bowel sounds Extremities: Normal pulses, Other (Lower extremity edema) Skin: No breakdown, No significant lesion Labs Labs: Laboratory Tests Test 11/02/21 16:40 11/02/21 20:53 11/03/21 03:40 11/03/21 06:11 Glucose (Fingerstick) 192 mg/dL (70-99) 118 mg/dL (70-99) 85 mg/dL (70-99) Sodium Level 143 mmol/L (136-145) Potassium Level 5.1 mmol/L (3.5-5.1) Chloride Level 103 mmol/L (98-107) Carbon Dioxide Level 32 mmol/L (21-32) Anion Gap 8 (6-14) Blood Urea Nitrogen 44 mg/dL (8-26) Creatinine 2.2 mg/dL (0.7-1.3) Estimated GFR (Cockcroft-Gault) 29.0 Glucose Level 86 mg/dL (70-99) Calcium Level 7.8 mg/dL (8.5-10.1) Test 11/03/21 11:55 Glucose (Fingerstick) 143 mg/dL (70-99) Assessment and Plan Assessmemt and Plan Problems Medical Problems: (1) Congestive heart failure Status: Acute (2) Hyperkalemia Status: Acute (3) Hypoglycemia Status: Acute (4) Renal insufficiency Status: Acute Comment Review of Relevant I have reviewed the following items elisa (where applicable) has been applied. Justifications for Admission Other Justification PRAVEENA BUTT MD Nov 03, 2021 13:06
[2021-11-03 15:00] VITALS: BP 148/63
--- NOTE | 2021-11-03 16:14 | PDOC ---
PROGRESS NOTES Date of Service DATE: 11/03/21 TIME: 16:12 Subjective Subjective Patient seen and examined He is more comfortable today. Objective Objective Vital Signs Date Time Temp Pulse Resp B/P (MAP) Pulse Ox O2 Delivery O2 Flow Rate FiO2 11/03/21 11:00 99.1 73 18 156/56 (89) 96 Nasal Cannula 1.0 99.1 Intake and Output 11/03/21 07:00 Intake Total 540 ml Output Total 1675 ml Balance -1135 ml Intake Oral 540 ml Output Urine Total 1675 ml Physical Exam Abdomen: Normal bowel sounds Heart: Regular rate General: No acute distress Lungs: Other (Mildly decreased breath sounds) Assessment Assessment Problems Medical Problems: (1) Congestive heart failure Status: Acute (2) Hyperkalemia Status: Acute (3) Hypoglycemia Status: Acute (4) Renal insufficiency Status: Acute 1. Acute on chronic CHF. Continued improvement. Echo as noted above with an ejection fraction of 35%. We will continue present treatment. Outpatient ischemia work-up. 2. JOSETTE on CKD3 with hyperkalemia. Followed by the renal service. Morning potassium has improved to 5.1. Creatinine mildly improved at 2.2. 3. HTN: controlled 4. HLP. Continue present treatment. 5. DM2 with hypoglycemic episode: per PCP 6. Hx of LE PAD: no pain no wounds. Continue present treatment. Comment Review of Relevant I have reviewed the following items elisa (where applicable) has been applied. Labs Laboratory Tests Test 11/01/21 17:06 11/01/21 19:55 11/02/21 04:00 11/02/21 07:10 Glucose (Fingerstick) 82 mg/dL (70-99) 145 mg/dL (70-99) 123 mg/dL (70-99) Sodium Level 144 mmol/L (136-145) Potassium Level 5.8 mmol/L (3.5-5.1) Chloride Level 105 mmol/L (98-107) Carbon Dioxide Level 31 mmol/L (21-32) Anion Gap 8 (6-14) Blood Urea Nitrogen 40 mg/dL (8-26) Creatinine 2.3 mg/dL (0.7-1.3) Estimated GFR (Cockcroft-Gault) 27.6 Glucose Level 120 mg/dL (70-99) Calcium Level 7.7 mg/dL (8.5-10.1) Magnesium Level 1.7 mg/dL (1.8-2.4) Test 11/02/21 11:53 11/02/21 16:40 11/02/21 20:53 11/03/21 03:40 Glucose (Fingerstick) 222 mg/dL (70-99) 192 mg/dL (70-99) 118 mg/dL (70-99) Sodium Level 143 mmol/L (136-145) Potassium Level 5.1 mmol/L (3.5-5.1) Chloride Level 103 mmol/L (98-107) Carbon Dioxide Level 32 mmol/L (21-32) Anion Gap 8 (6-14) Blood Urea Nitrogen 44 mg/dL (8-26) Creatinine 2.2 mg/dL (0.7-1.3) Estimated GFR (Cockcroft-Gault) 29.0 Glucose Level 86 mg/dL (70-99) Calcium Level 7.8 mg/dL (8.5-10.1) Test 11/03/21 06:11 11/03/21 11:55 Glucose (Fingerstick) 85 mg/dL (70-99) 143 mg/dL (70-99) Laboratory Tests Test 11/02/21 16:40 11/02/21 20:53 11/03/21 03:40 11/03/21 06:11 Glucose (Fingerstick) 192 mg/dL (70-99) 118 mg/dL (70-99) 85 mg/dL (70-99) Sodium Level 143 mmol/L (136-145) Potassium Level 5.1 mmol/L (3.5-5.1) Chloride Level 103 mmol/L (98-107) Carbon Dioxide Level 32 mmol/L (21-32) Anion Gap 8 (6-14) Blood Urea Nitrogen 44 mg/dL (8-26) Creatinine 2.2 mg/dL (0.7-1.3) Estimated GFR (Cockcroft-Gault) 29.0 Glucose Level 86 mg/dL (70-99) Calcium Level 7.8 mg/dL (8.5-10.1) Test 11/03/21 11:55 Glucose (Fingerstick) 143 mg/dL (70-99) Medications Current Medications Furosemide (Lasix) 40 mg 1X ONCE PO Last administered on 10/31/21at 11:15; Start 10/31/21 at 10:45; Stop 10/31/21 at 10:46; Status DC Ondansetron HCl (Zofran) 4 mg PRN Q8HRS PRN IVP NAUSEA/VOMITING; Start 10/31/21 at 10:45; Stop 11/01/21 at 10:44; Status DC Furosemide (Lasix) 40 mg BID92 IVP Last administered on 11/03/21at 13:45; Start 10/31/21 at 14:30 Tamsulosin HCl (Flomax) 0.4 mg 1X ONCE PO Last administered on 10/31/21at 14:54; Start 10/31/21 at 14:30; Stop 10/31/21 at 14:31; Status DC Tamsulosin HCl (Flomax) 0.4 mg DAILY PO Last administered on 11/03/21at 08:54; Start 11/01/21 at 09:00 Doxazosin Mesylate (Cardura) 4 mg DAILY PO Last administered on 11/03/21at 08:53; Start 10/31/21 at 16:00 Simvastatin (Zocor) 40 mg QHS PO Last administered on 11/02/21at 22:59; Start 10/31/21 at 21:00 Lisinopril (Prinivil) 20 mg DAILY PO ; Start 10/31/21 at 16:00; Stop 10/31/21 at 16:58; Status DC Glipizide (Glucotrol Er) 10 mg BIDAC PO Last administered on 11/01/21at 09:01; Start 10/31/21 at 16:30; Stop 11/01/21 at 13:02; Status DC Pioglitazone HCl (Actos) 45 mg DAILY PO Last administered on 11/03/21at 08:54; Start 11/01/21 at 09:00 Linagliptin (Tradjenta) 5 mg DAILY PO Last administered on 11/03/21at 08:54; Start 11/01/21 at 09:00 Insulin Human Lispro (HumaLOG) 0-9 UNITS QIDACHS SQ Last administered on 11/02/21at 17:48; Start 10/31/21 at 16:30 Dextrose (Dextrose 50%-Water Syringe) 12.5 gm PRN Q15MIN PRN IV SEE COMMENTS; Start 10/31/21 at 15:15 Enoxaparin Sodium (Lovenox Per Pharmacy Prophylaxis Dosing) 1 each PRN DAILY PRN MC SEE COMMENTS; Start 10/31/21 at 15:30 Enoxaparin Sodium (Lovenox 30mg Syringe) 30 mg Q24H SQ Last administered on 10/31/21at 17:05; Start 10/31/21 at 16:00; Stop 11/01/21 at 13:33; Status DC Furosemide (Lasix) 40 mg 1X ONCE PO Last administered on 10/31/21at 18:28; Start 10/31/21 at 18:30; Stop 10/31/21 at 18:31; Status DC Sodium Polystyrene Sulfonate (Kayexalate) 15 gm 1X ONCE PO Last administered on 10/31/21at 18:27; Start 10/31/21 at 18:30; Stop 10/31/21 at 18:31; Status DC Sodium Polystyrene Sulfonate (Kayexalate) 15 gm 1X ONCE PO Last administered on 11/01/21at 10:23; Start 11/01/21 at 10:15; Stop 11/01/21 at 10:16; Status DC Aspirin (Ecotrin) 81 mg DAILYWBKFT PO Last administered on 11/03/21at 08:53; Start 11/02/21 at 08:00 Glipizide (Glucotrol Er) 10 mg DAILY08 PO Last administered on 11/03/21at 08:53; Start 11/02/21 at 08:00 Enoxaparin Sodium (Lovenox 40mg Syringe) 40 mg Q12HR SQ Last administered on 11/03/21at 09:03; Start 11/01/21 at 21:00 Active Scripts Active Reported Benazepril Hcl 20 Mg Tablet 20 Mg PO DAILY Januvia (Sitagliptin Phosphate) 100 Mg Tablet 1 Tab PO DAILY Simvastatin 40 Mg Tablet 1 Tab PO DAILY Metformin Hcl 1,000 Mg Tablet 1,000 Mg PO BIDWMEALS Pioglitazone Hcl 45 Mg Tablet 45 Mg PO DAILY Doxazosin Mesylate 4 Mg Tablet 4 Mg PO DAILY Glipizide Er (Glipizide) 10 Mg Tab.er.24 10 Mg PO BID Vitals/I & O Vital Sign - Last 24 Hours 11/02/21 11/02/21 11/02/21 11/02/21 19:18 20:00 20:55 22:38 Temp 99.6 99.1 99.6 99.1 Pulse 81 82 Resp 18 18 B/P (MAP) 154/68 (96) 127/57 (80) Pulse Ox 97 94 94 O2 Delivery Nasal Cannula Nasal Cannula BiPAP/CPAP Nasal Cannula O2 Flow Rate 1.0 1.0 1.0 11/03/21 11/03/21 11/03/21 11/03/21 00:00 02:49 03:00 05:13 Temp 98.7 98.7 Pulse 69 Resp 20 B/P (MAP) 180/71 (107) Pulse Ox 94 95 94 95 O2 Delivery BiPAP/CPAP Nasal Cannula BiPAP/CPAP BiPAP/CPAP O2 Flow Rate 1.0 11/03/21 11/03/21 11/03/21 11/03/21 07:00 08:00 08:53 11:00 Temp 98.4 99.1 98.4 99.1 Pulse 72 77 73 Resp 16 18 B/P (MAP) 210/78 (122) 184/80 156/56 (89) Pulse Ox 96 96 O2 Delivery Nasal Cannula Nasal Cannula Nasal Cannula O2 Flow Rate 1.0 3.0 1.0 Intake and Output 11/02/21 11/02/21 11/03/21 15:00 23:00 07:00 Intake Total 360 ml 180 ml 0 ml Output Total 525 ml 850 ml 300 ml Balance -165 ml -670 ml -300 ml Justifications for Admission Other Justification VERENICE MERRILL MD Nov 03, 2021 16:14
[2021-11-03 19:12] VITALS: BP 134/57
[2021-11-03] MEDS: SIMVASTATIN 40 MG TABLET. PO SCH ×2 (20:50→20:52)
[2021-11-03 22:57] VITALS: BP 120/54
[2021-11-04 02:40] VITALS: BP 137/58
[2021-11-04 07:15] VITALS: BP 123/50
[2021-11-04] MEDS: INSULIN LISPRO 300 UNITS/3 ML VIAL. SQ SCH ×2 (07:24→11:30)
[2021-11-04] MEDS: PIOGLITAZONE 15 MG TABLET. PO SCH (08:31)
[2021-11-04] MEDS: LINAGLIPTIN 5 MG TABLET PO SCH (08:31)
[2021-11-04] MEDS: DOXAZOSIN MESYLATE 4 MG TABLET. PO SCH (08:31)
[2021-11-04] MEDS: TAMSULOSIN 0.4 MG CAP.ER.24H. PO SCH (08:31)
[2021-11-04] MEDS: ASPIRIN ENTERIC COATED 81 MG TABLET.DR. PO SCH (08:31)
[2021-11-04] MEDS: FUROSEMIDE 40 MG/4 ML VIAL. IVP SCH (08:32)
[2021-11-04] MEDS: ENOXAPARIN 40 MG/0.4 ML SYRINGE. SQ SCH (08:32)
[2021-11-04] MEDS: glipiZIDE ER 2.5 MG TAB.ER.24 PO SCH (08:32)
[2021-11-04] MEDS ORDERED: FURO40TA4 PO (10:14)
[2021-11-04] MEDS ORDERED: TAMS0.4C97 PO (10:14)
[2021-11-04] MEDS ORDERED: ASPI-886 PO (10:14)
[2021-11-04 10:19] VITALS: BP 134/64
--- NOTE | 2021-11-04 11:09 | PDOC ---
Renal-Progress Notes Subjective Notes Notes FEELS WELL History of Present Illness Hx of present illness DENIED SOB, STILL ON O2 Vitals Vitals Vital Signs Date Time Temp Pulse Resp B/P (MAP) Pulse Ox O2 Delivery O2 Flow Rate FiO2 11/04/21 10:19 98.7 85 20 134/64 (87) 94 Nasal Cannula 2.0 98.7 Weight Weight [ ] I.O. Intake and Output Intake and Output 11/04/21 07:00 Intake Total 480 ml Output Total 2300 ml Balance -1820 ml Intake Oral 300 ml Tube Feeding 180 ml Output Urine Total 2300 ml Labs Labs Laboratory Tests Test 11/03/21 11:55 11/03/21 16:43 11/03/21 20:31 11/04/21 07:17 Glucose (Fingerstick) 143 mg/dL (70-99) 167 mg/dL (70-99) 152 mg/dL (70-99) 124 mg/dL (70-99) Review of Systems Constitutional: yes: alert Ears/Nose/Throat: Yes: no symptom reported Eyes: Yes: no symptom reported Pulmonary: Yes no symptom reported Cardiovascular: Yes edema Gastrointestional: Yes: no symptom reported Genitourinary: Yes: no symptom reported Musculoskeletal: Yes: no symptom reported Skin: Yes no symptom reported Psychiatric/Neurological: Yes: no symptom reported Endocrine: Yes: no symptom reported Physical Exam General Appearance: no apparent distress Skin: warm Heart: S1S2 Abdomen: soft, rectal tube Genitourinary: bladder flat Extremities: pulses present, edema Neurology: alert, oriented Musculoskeletal: Osteoarthritis Assessment Assessment IMP HYPERKALEMIA-RESOLVED CKD STAGE 3B-CR STABLE AT 2.2 ACUTE ON CHRONIC SYSTOLIC CHF CARDIOMYOPATHY WITH EF OF 35% LE EDEMA DM II HTN PLAN CHANGE LASIX TO PO CARDIOLOGY EVALUATION HOLD GUDELIA- AND METFORMIN FOR NOW WEAN O2 WILL FOLLOW D/W ATTENDING HAYLIE BUCK MD Nov 04, 2021 11:09
--- NOTE | 2021-11-04 11:28 | NUR ---
SS following up with discharge planning. SS reviewed pt chart and discussed with pt RN. Pt is currently requiring oxygen at two liters nasal canula. COVID19 negative. Six minute walk completed and script for oxygen received. SS phoned and faxed script and clinical to [facility], ; fax [phone]. Oxygen tank provided for home. Discharge order on the chart for home with self care.
--- NOTE | 2021-11-04 11:50 | PDOC ---
[facility] RN 11/04/21 1150: CARDIO Progress Notes Date and Time Date of Service 11/04/21 Time of Evaluation 1140 Subjective Subjective: No Chest Pain, No shortness of breath, No Palpitations Vitals Vitals Vital Signs Date Time Temp Pulse Resp B/P (MAP) Pulse Ox O2 Delivery O2 Flow Rate FiO2 11/04/21 10:19 98.7 85 20 134/64 (87) 94 Nasal Cannula 2.0 98.7 Weight Weight [ ] Input and Output Intake and Output Intake and Output 11/04/21 07:00 Intake Total 480 ml Output Total 2300 ml Balance -1820 ml Intake Oral 300 ml Tube Feeding 180 ml Output Urine Total 2300 ml Laboratory Labs Laboratory Tests Test 11/03/21 11:55 11/03/21 16:43 11/03/21 20:31 11/04/21 07:17 Glucose (Fingerstick) 143 mg/dL (70-99) 167 mg/dL (70-99) 152 mg/dL (70-99) 124 mg/dL (70-99) Review of Systems Constitutional: yes: alert Ears/Nose/Throat: Yes: no symptom reported Eyes: Yes: no symptom reported Pulmonary: Yes no symptom reported Cardiovascular: Yes edema Gastrointestional: Yes: no symptom reported Genitourinary: Yes: no symptom reported Musculoskeletal: Yes: no symptom reported Skin: Yes no symptom reported Psychiatric/Neurological: Yes: no symptom reported Endocrine: Yes: no symptom reported Physical Exam HEENT: Neck Supple W Full Motion Chest: Symmetric LUNGS: Clear to Auscultation Heart: S1S2, RRR, no murmurs Abdomen: Soft N/T Extremities: No Edema Neurology: alert, oriented, follow commands Assessment Assessment 1. Acute on chronic systolic CHF. improved s/p IV diuresi. Echo with an ejection fraction of 35%. Outpatient ischemia work-up. 2. JOSETTE on CKD3 with hyperkalemia. improved. as per renal 3. HTN: controlled 4. HLP; statin 5. DM2 with hypoglycemic episode: per PCP 6. Hx of LE PAD: no pain no wounds. Continue present treatment. Recommendations Oral Lasix therapy Add Toprol for HF optimization No ACEi/ARB with JOSETTE 2000cc FR. 2Gm Na diet. daily weight monitoring. ASA therapy Outpatient ischemic evaluation as arranged Follow up in our office with Dr. Merrill as scheduled Justicifation of Admission Dx: Justifications for Admission: Justification of Admission Dx: Yes Respiratory Failure: Severe Resp Distress VERENICE MERRILL MD 11/04/21 1631: CARDIO Progress Notes Assessment Assessment Patient seen and examined He is looking and feeling better. I agree with our nurse practitioners assessment and plan. Acute on chronic systolic CHF. Continue improvement on present treatment including oral Lasix and Toprol. Echo with an ejection fraction of 35%. Outpatient ischemia work-up and follow-up JOSETTE on CKD3 with hyperkalemia. improved. as per renal HTN: controlled HLP; statin DM2 with hypoglycemic episode: per PCP Hx of LE PAD: no pain no wounds. Continue present treatment. LETICIA GLOVER APRN Nov 04, 2021 11:50 VERENICE MERRILL MD Nov 04, 2021 16:31
--- NOTE | 2021-11-04 12:38 | NUR ---
Discharge Note: AUGUSTO C[address]HA[address] [place] [address] Discharge instructions and discharge home medications reviewed with Patient and a copy given. All questions have been answered and understanding verbalized. The following instructions and handouts were given: heart failure, furosemide, aspirin, tamsulosin. Patient discharged to home with self care via wheelchair. Oxygen tank given to patient with a reminder to set it at 2L and to call the number on the tank as soon as he gets home.
--- NOTE | 2021-11-04 15:41 | PDOC3 ---
[facility]-Discharge Summary Date of Admission: Date of Admission: Oct 31, 2021 Date of Discharge: Date of Discharge: Nov 04, 2021 Admission Diagnosis: Problems: (1) Leg swelling Hospital Course: Hospital Course: Chief Complaint Acute systolic CHF LE edema consutl CV BPH, add flomax obese, BMI 42 Dm2, hold metfomin, add SSI, for CV eval CKD 3, has seen Dr. Hawkins, will consult, check bladder scan, UA, Possible history of LOGAN will try a nighttime CPAP BiPAP to see how he tolerates. Can do sleep study outpatient. History of Present Illness History of Present Illness MR. Humphries, is a 81-year-old male, admit wtih new shortness of breath and complaint of left lower extremity swelling, worse over 3 days. worse dyaspne on exertion and had orthopnea in the ER, he got a dose of lasix there and feels a little better already. his primary doctor, Dr. Holliday directed him to the ER. no chest pain. no cough or fever. 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 Resting in bed evaluated no complaints. On supplemental O2. Handful of cardiac work-up pending still. Continue to follow closely. Diuresis. 11/02 Patient evaluated examined at bedside. Resting in bed no acute complaints. Continue current plan. Cardiology following. 11/02 Patient valuation at bedside. Resting in bed doing well. Diuresis continued today possible DC in the next day or 2 11/03 Patient evaluated and examined at bedside. Up in chair doing well. Had just worked with PT good to go home. Discharge home today. Greater than 30 minutes spent on this discharge. 19 minutes advance care planning discussed with the patient. Disposition: Disposition/Orders: D/C to Home Activity: Activity: Resume previous activity Diet: Diet: Cardiac Medications: Home Meds Active Scripts Furosemide (FUROSEMIDE) 40 Mg Tablet, 40 MG PO BID for chf for 60 Days, #120 TAB Prov:PRAVEENA BUTT MD 11/04/21 Aspirin (ASPIRIN EC) 81 Mg Tablet.dr 81 MG PO DAILYWBKFT for cad for 60 Days, #60 TAB.SR Prov:PRAVEENA BUTT MD 11/04/21 Tamsulosin Hcl (FLOMAX) 0.4 Mg Cap.er.24h, 0.4 MG PO DAILY for bph for 60 Days, #60 CAP.SR Prov:PRAVEENA BUTT MD 11/04/21 Reported Medications Benazepril Hcl (BENAZEPRIL HCL) 20 Mg Tablet, 20 MG PO DAILY for HTN, TAB 10/31/21 Sitagliptin Phosphate (JANUVIA) 100 Mg Tablet, 1 TAB PO DAILY, #30 TAB 5 Refills 11/05/17 Simvastatin (SIMVASTATIN) 40 Mg Tablet, 1 TAB PO DAILY, #30 TAB 5 Refills 11/04/17 Metformin Hcl (METFORMIN HCL) 1,000 Mg Tablet, 1000 MG PO BIDWMEALS for ANTI- DIABETIC, TAB 0 Refills 10/03/15 Pioglitazone Hcl (PIOGLITAZONE HCL) 45 Mg Tablet, 45 MG PO DAILY, TAB 10/03/15 Doxazosin Mesylate (DOXAZOSIN MESYLATE) 4 Mg Tablet, 4 MG PO DAILY, TAB 10/03/15 Glipizide (GLIPIZIDE ER) 10 Mg Tab.er.24, 10 MG PO BID, TAB.SR 10/03/15 Scheduled Aspirin (Aspirin Ec), 81 MG PO DAILYWBKFT Benazepril Hcl (Benazepril Hcl), 20 MG PO DAILY, (Reported) Doxazosin Mesylate (Doxazosin Mesylate), 4 MG PO DAILY, (Reported) Furosemide (Furosemide), 40 MG PO BID Glipizide (Glipizide Er), 10 MG PO BID, (Reported) Metformin Hcl (Metformin Hcl), 1,000 MG PO BIDWMEALS, (Reported) Pioglitazone Hcl (Pioglitazone Hcl), 45 MG PO DAILY, (Reported) Simvastatin (Simvastatin), 1 TAB PO DAILY, (Reported) Sitagliptin Phosphate (Januvia), 1 TAB PO DAILY, (Reported) Tamsulosin Hcl (Flomax), 0.4 MG PO DAILY Justicifation of Admission Dx: Justifications for Admission: Justification of Admission Dx: Yes Respiratory Failure: Severe Resp Distress PRAVEENA BUTT MD Nov 04, 2021 15:41
[2021-11-04] MEDS ORDERED: FUROSEMIDE 40 MG TABLET. PO SCH (16:00)
[2021-11-04] MEDS ORDERED: METO-239 PO (16:14)
[2021-11-05] MEDS ORDERED: METOPROLOL SUCC 24HR ER 25 MG TAB.ER.24H. PO SCH (09:00)
== END 2021-11-04 12:35 | disposition home or self-care (01) | DRG 291 ==
LOC: ER 09:04 → 6 SOUTH 10:40
PROVIDERS: ADMIT Internal Medicine; ATTEND Internal Medicine
PROC: 5A09357 Assistance with Respiratory Ventilation, Less than 24 Consecutive Hours, Continuous Positive Airway Pressure (ICD-10-PCS; principal; 2021-11-01)
PROC: 5A09357 Assistance with Respiratory Ventilation, Less than 24 Consecutive Hours, Continuous Positive Airway Pressure (ICD-10-PCS; 2021-11-02)
PROC: 5A09357 Assistance with Respiratory Ventilation, Less than 24 Consecutive Hours, Continuous Positive Airway Pressure (ICD-10-PCS; 2021-11-03)
PROC: 5A09357 Assistance with Respiratory Ventilation, Less than 24 Consecutive Hours, Continuous Positive Airway Pressure (ICD-10-PCS; 2021-11-04)
DX: I13.0 Hypertensive heart and chronic kidney disease with heart failure and stage 1 through stage 4 chronic kidney disease, or unspecified chronic kidney disease (principal); I50.23 Acute on chronic systolic (congestive) heart failure; Z68.41 Body mass index [BMI] 40.0-44.9, adult; N17.9 Acute kidney failure, unspecified; I42.9 Cardiomyopathy, unspecified; E11.22 Type 2 diabetes mellitus with diabetic chronic kidney disease; E11.649 Type 2 diabetes mellitus with hypoglycemia without coma; E66.01 Morbid (severe) obesity due to excess calories; N40.1 Benign prostatic hyperplasia with lower urinary tract symptoms; N18.32 Chronic kidney disease, stage 3b; J45.909 Unspecified asthma, uncomplicated; M19.90 Unspecified osteoarthritis, unspecified site; E11.51 Type 2 diabetes mellitus with diabetic peripheral angiopathy without gangrene; I25.10 Atherosclerotic heart disease of native coronary artery without angina pectoris; G47.33 Obstructive sleep apnea (adult) (pediatric); E78.5 Hyperlipidemia, unspecified; E87.5 Hyperkalemia; Z20.822 Contact with and (suspected) exposure to COVID-19; Z87.891 Personal history of nicotine dependence; Z85.46 Personal history of malignant neoplasm of prostate; Z83.3 Family history of diabetes mellitus; Z98.49 Cataract extraction status, unspecified eye
CPT/HCPCS: 36415; 71045; 80048; 80053; 80061; 81001; 82962; 83735; 83880; 84443; 84484; 85025; 87426; 93005; 93306; 93971; 94618; 94660; J1650; J1815; J1940; U0003; U0005; 97530-GP; 99285-25; G0378